=== PATIENT | male | born 1960 | race Caucasian/White ===

== ENCOUNTER 2024-06-12 11:43 | Emergency (ER) | payer BC, SELFPAY ==
[2024-06-12 11:49] VITALS: BP 151/105; PULSE 94; TEMP 36.6; O2SAT 98; BMI 36.0
--- NOTE | 2024-06-12 11:58 | ED.GENADUL1 ---
HPI HPI - General Adult General Chief complaint: Abdominal Pain Stated complaint: constipated Time Seen by Provider: 06/12/24 11:52 Source: patient Mode of arrival: walk-in Limitations: no limitations History of Present Illness HPI narrative: 63-year-old male presents to the emergency department for constipation. He states he has not had a bowel movement in a week. He had a colonoscopy he states a few months ago and they found 1 polyp. He has been nauseous. Related Data Home Medications ?Medication ?Instructions ?Recorded ?Confirmed bupropion HCl 300 mg 24 hr tablet, 300 mg PO DAILY 06/12/24 06/12/24 extended release diltiazem HCl 180 mg 180 mg PO Q24H 06/12/24 06/12/24 capsule,extended release 24 hr dulaglutide 1.5 mg/0.5 mL 1.5 mg subcut .weekly 06/12/24 06/12/24 subcutaneous pen injector (Trulicity) duloxetine 30 mg capsule,delayed 30 mg PO DAILY 06/12/24 06/12/24 release lamotrigine 200 mg tablet 200 mg PO DAILY 06/12/24 06/12/24 lisinopril 20 mg tablet 20 mg PO DAILY 06/12/24 06/12/24 meloxicam 7.5 mg tablet 7.5 mg PO DAILY 06/12/24 06/12/24 omeprazole 40 mg capsule,delayed 40 mg PO Q8H 06/12/24 06/12/24 release pravastatin 20 mg tablet 20 mg PO DAILY 06/12/24 06/12/24 Allergies Allergy/AdvReac Type Severity Reaction Status Date / Time No Known Drug Allergies Allergy Verified 06/12/24 11:49 Review of Systems ROS Narrative A ten point review of systems is negative except as noted above. PFSH PFSH Social History Little interest or pleasure in doing things: not at all Feeling down, depressed, or hopeless: not at all Exam Narrative Exam Narrative: Nurses note and vital signs reviewed and patient is not hypoxic. General: The patient appears well and in no apparent distress. Patient is resting comfortably on cart. Skin: Warm, dry, no pallor noted. There is no rash noted. Head: Normocephalic, atraumatic Eye: Normal conjunctiva, no drainage Ears, Nose, Mouth, and Throat: oral mucosa is moist. Nares patent. Cardiovascular: Regular Rate and Rhythm Respiratory: Patient is in no distress, no accessory muscle use, lungs are clear to auscultation, no wheezing, rales or rhonchi Back: non-tender GI: Soft and nondistended. No tenderness on palpation Musculoskeletal: The patient has no evidence of calf tenderness, no pitting edema, symmetrical pulses noted bilaterally Neurological: A&O, normal speech Psychiatric: Cooperative Constitutional Vital Signs, click to edit/add: Last Vital Signs Temp 97.8 F 06/12/24 11:49 Pulse 70 06/12/24 14:40 Resp 14 06/12/24 14:40 BP 145/90 H 06/12/24 14:40 Pulse Ox 98 06/12/24 14:40 O2 Del Method Room Air 06/12/24 14:40 Course Vital Signs Vital signs: Vital Signs Temperature 97.8 F 06/12/24 11:49 Pulse Rate 94 H 06/12/24 11:49 Respiratory Rate 18 06/12/24 11:49 Blood Pressure 151/105 H 06/12/24 11:49 Pulse Oximetry 98 06/12/24 11:49 Oxygen Delivery Method Room Air 06/12/24 11:49 Temperature 97.8 F 06/12/24 11:49 Pulse Rate 70 06/12/24 14:40 Respiratory Rate 14 06/12/24 14:40 Blood Pressure 145/90 H 06/12/24 14:40 Pulse Oximetry 98 06/12/24 14:40 Oxygen Delivery Method Room Air 06/12/24 14:40 Medical Decision Making MDM Narrative Medical decision making narrative: Constipation was identified and he was given an enema with good results and is discharged home. Differential Diagnosis Differential Diagnosis: Impaction, constipation Imaging Data Abdominal x-ray: Radiologist's impression: Moderate constipation Discharge Plan Discharge Chief Complaint: Abdominal Pain Clinical Impression: Constipation Patient Disposition: Home, Self-Care Time of Disposition Decision: 14:22 Condition: Good Prescriptions / Home Meds: No Action bupropion HCl 300 mg tablet extended release 24 hr 300 mg PO DAILY diltiazem HCl 180 mg capsule,extended release 24hr 180 mg PO Q24H Trulicity 1.5 mg/0.5 mL pen injector 1.5 mg SUBCUT .weekly duloxetine 30 mg capsule,delayed release(DR/EC) 30 mg PO DAILY lamotrigine 200 mg tablet 200 mg PO DAILY lisinopril 20 mg tablet 20 mg PO DAILY meloxicam 7.5 mg tablet 7.5 mg PO DAILY omeprazole 40 mg capsule,delayed release(DR/EC) 40 mg PO Q8H pravastatin 20 mg tablet 20 mg PO DAILY Print Language: St Helenian Instructions: Constipation (ED), High Fiber Diet (ED) Additional Instructions: Follow up with your GI doctor Referrals: MEJIA PHILLIPS [Primary Care Provider, Unknown] - 1 week Discharge Date/Time: 06/12/24 14:46
[2024-06-12 14:40] VITALS: BP 145/90; PULSE 70; O2SAT 98
== END 2024-06-12 14:46 | disposition home or self-care (01) ==
PROVIDERS: Emergency Provider Emergency Medicine; PCP Family Medicine
DX: K59.00 Constipation, unspecified (principal); Z86.0100 Personal history of colon polyps, unspecified
CPT/HCPCS: 74018; 99283

== ENCOUNTER 2024-12-27 08:02 | Emergency (ER) | payer BC, SELFPAY ==
[2024-12-27 08:05] VITALS: BP 161/116; PULSE 100; TEMP 36.8; O2SAT 99; BMI 34.7
--- NOTE | 2024-12-27 08:20 | XR_ITS ---
[facility] [place] [id number] Patient Name: SAHRA TSE MRN: [id number] date: 1960 Sex: M Assigned Patient Location: ER Current Patient Location: ED.MAIN Accession/Order Number: [id number] Exam Date: 12/27/2024 08:31 Report Date: 12/27/2024 08:57 At the request of: ILIANA MILLER MD Procedure: XR lumbar spine 2-3V LUMBAR SPINE - 2 views COMPARISON: None CLINICAL DATA: Low back pain for the past month with worsening. No injury. AP and lateral views were obtained. There is slight levoscoliotic curvature. There is mild retrolisthesis of L2 on L3 and L3 on L4. No acute compression fractures are seen. There is moderate disc space narrowing at L2-3 where there is also anterior endplate sclerosis. Mild marginal spurring is present at the lower thoracic and lumbar spine. There is lower lumbar facet hypertrophy. The SI joints are intact and show mild sclerosis. No paraspinal soft tissue abnormalities are present. A calcification is seen at the left upper quadrant, uncertain location. XR/XR lumbar spine 2-3V IMPRESSION: SCOLIOSIS AND DEGENERATIVE CHANGES, GREATEST AT L2-3. Impression dictated by: Sri Robles M.D. 12/27/2024 8:57 AM Dictation Location: [place] [address] Electronically authenticated by: [id number] Y Date: 12/27/2024 08:57
--- NOTE | 2024-12-27 08:21 | ED.GENADUL1 ---
HPI HPI - General Adult General Chief complaint: Back Pain/Injury Stated complaint: BACK PAIN Time Seen by Provider: 12/27/24 08:07 Source: patient Mode of arrival: walk-in Limitations: no limitations History of Present Illness HPI narrative: 64-year-old male presented to the emergency department for chief complaint of bilateral lower back pain. He has had it for about a month and a half and there is no specific injury. The pain goes into both of his upper legs, worse on the left than the right. No weakness or numbness. Related Data Home Medications ?Medication ?Instructions ?Recorded ?Confirmed bupropion HCl 300 mg 24 hr tablet, 300 mg PO DAILY 06/12/24 12/27/24 extended release diltiazem HCl 180 mg 180 mg PO Q24H 06/12/24 12/27/24 capsule,extended release 24 hr lamotrigine 200 mg tablet 200 mg PO DAILY 06/12/24 12/27/24 lisinopril 20 mg tablet 20 mg PO DAILY 06/12/24 12/27/24 meloxicam 7.5 mg tablet 7.5 mg PO DAILY 06/12/24 12/27/24 omeprazole 40 mg capsule,delayed 40 mg PO Q8H 06/12/24 12/27/24 release pravastatin 20 mg tablet 20 mg PO DAILY 06/12/24 12/27/24 dulaglutide 3 mg/0.5 mL 3 mg subcut QWEEK 12/27/24 12/27/24 subcutaneous pen injector (Trulicity) duloxetine 60 mg capsule,delayed 60 mg PO DAILY 12/27/24 12/27/24 release Previous Rx's ?Medication ?Instructions ?Recorded hydrocodone 5 mg-acetaminophen 325 1 tab PO Q6H PRN pain 5 days #20 12/27/24 mg tablet tabs methocarbamol 750 mg tablet 750 mg PO Q6H PRN pain #20 tabs 12/27/24 prednisone 10 mg tablet See Rx Instructions .Route 12/27/24 .COMPLEX #30 tabs Allergies Allergy/AdvReac Type Severity Reaction Status Date / Time No Known Drug Allergies Allergy Verified 12/27/24 08:09 Opioid HPI Opioid Management Most Recent Opioid Data: Last Pain Scale 10 Today, 08:10 Review of Systems ROS Narrative A ten point review of systems is negative except as noted above. PFSH PFSH Social History Little interest or pleasure in doing things: not at all Feeling down, depressed, or hopeless: not at all Exam Narrative Exam Narrative: Nurses note and vital signs reviewed General:The patient appears uncomfortable. He is sitting upright on a chair hunched over. Skin:Warm, dry, no pallor noted.There is no rash noted. Head:Normocephalic, atraumatic Eye: Normal conjunctiva, no drainage Ears, Nose, Mouth, and Throat: oral mucosa is moist. Nares patent. Cardiovascular:Regular Rate and Rhythm Respiratory:Patient is in no distress, no accessory muscle use, lungs are clear to auscultation, no wheezing, rales or rhonchi Back: No bruise rash or abrasion on his back. No focal area of tenderness to palpation GI: Soft and nontender Musculoskeletal: No joint swelling Neurological:A&O, normal speech; motor strength intact in his lower extremities Psychiatric:Cooperative Constitutional Vital Signs, click to edit/add: Last Vital Signs Temp 98.3 F 12/27/24 08:05 Pulse 100 H 12/27/24 08:05 Resp 16 12/27/24 08:05 BP 120/82 12/27/24 09:03 Pulse Ox 99 12/27/24 08:05 O2 Del Method Room Air 12/27/24 08:05 Course Vital Signs Vital signs: Vital Signs Temperature 98.3 F 12/27/24 08:05 Pulse Rate 100 H 12/27/24 08:05 Respiratory Rate 16 12/27/24 08:05 Blood Pressure 161/116 H 12/27/24 08:05 Pulse Oximetry 99 12/27/24 08:05 Oxygen Delivery Method Room Air 12/27/24 08:05 Temperature 98.3 F 12/27/24 08:05 Pulse Rate 100 H 12/27/24 08:05 Respiratory Rate 16 12/27/24 08:05 Blood Pressure 120/82 12/27/24 09:03 Pulse Oximetry 99 12/27/24 08:05 Oxygen Delivery Method Room Air 12/27/24 08:05 Medical Decision Making [facility] Narrative Medical decision making narrative: X-ray findings are discussed with the patient and he is provided prescriptions for [place], Robaxin, and prednisone. Follow-up with his PCP. The possibility of a herniated lumbar disc at L2-L3 as discussed with the patient. Differential Diagnosis Differential Diagnosis: Lumbar strain, fracture, disc herniation Imaging Data Lumbar spine: Radiologist's impression: ITS Impressions Lumbar Spine X-Ray 12/27/24 08:20 IMPRESSION: SCOLIOSIS AND DEGENERATIVE CHANGES, GREATEST AT L2-3. Impression dictated by: Sri Robles M.D. 12/27/2024 8:57 AM Dictation Location: [place] [address] Electronically authenticated by: [id number] Y Date: 12/27/2024 08:57 Discharge Plan Discharge Chief Complaint: Back Pain/Injury Clinical Impression: Low back pain, Arthritis, lumbar spine Patient Disposition: Home, Self-Care Time of Disposition Decision: 09:26 Condition: Good Mode of Transportation: Private Vehicle Prescriptions / Home Meds: New hydrocodone-acetaminophen 5-325 mg tablet 1 tab PO Q6H PRN (Reason: pain) 5 Days Qty: 20 0RF prednisone 10 mg tablet See Rx Instructions .ROUTE .COMPLEX Qty: 30 0RF Rx Instructions: 4 by mouth daily for three days then 3 by mouth daily for three days then 2 by mouth daily for three days then 1 by mouth daily for three days methocarbamol 750 mg tablet 750 mg PO Q6H PRN (Reason: pain) Qty: 20 0RF No Action bupropion HCl 300 mg tablet extended release 24 hr 300 mg PO DAILY diltiazem HCl 180 mg capsule,extended release 24hr 180 mg PO Q24H lamotrigine 200 mg tablet 200 mg PO DAILY lisinopril 20 mg tablet 20 mg PO DAILY meloxicam 7.5 mg tablet 7.5 mg PO DAILY omeprazole 40 mg capsule,delayed release(DR/EC) 40 mg PO Q8H pravastatin 20 mg tablet 20 mg PO DAILY Trulicity 3 mg/0.5 mL pen injector 3 mg SUBCUT QWEEK duloxetine 60 mg capsule,delayed release(DR/EC) 60 mg PO DAILY Print Language: Singaporean Instructions: Acute Low Back Pain (ED) Referrals: MEJIA PHILLIPS [Primary Care Provider, Unknown] - 1 week
[2024-12-27] MEDS: KETOROLAC TROMETHAMINE 60 MG/2 ML VIAL IM (08:26)
[2024-12-27] MEDS: ORPHENADRINE 60 MG/2 ML VIAL IM (08:26)
--- OUTSIDE RECORDS SUMMARY | 2024-12-27 08:44 | XMS_ITS | Clinical Summary ---
Author Organization [facility] Healthcare Address [address] [place] [address] Care Team Providers Care Building Serviceman Name Role Phone Unavailable Primary Care Provider Unavailabl e Allergies No known active allergies Medications MedicationSigDispense QuantityRefillsLast FilledStart DateEnd DateStatus buPROPion XL (Wellbutrin XL) 300 MG 24 hr tablet Take 300 mg by mouth in the morning.5Active dilTIAZem CD (Cardizem CD) 180 MG 24 hr capsule 5Active Trulicity 1.5 MG/0.5ML solution auto-injector 5Active Trulicity 3 MG/0.5ML solution auto-injector 5Active DULoxetine (Cymbalta) [address] capsule Take 120 mg by mouth in the morning.5Active fluticasone (Flonase) 50 MCG/ACT nasal spray 1 (one) time each day at the same time3Active lamoTRIgine (LaMICtal) 200 MG tablet Take 400 mg by mouth in the morning.5Active lisinopril 20 MG tablet 1 (one) time each day at the same timeActive meloxicam (Mobic) 7.5 MG tablet 5Active omeprazole (PriLOSEC) [address] capsule 1 capsule 1 (one) time each day at the same timeActive azithromycin (Zithromax) 250 MG tablet Indications:BronchitisTake 1 tablet (250 mg) by mouth Daily Take 2 tabs on day 1 and 1 tab on days 2-5 then stop 6 tablet 5Active Encounters DateTypeDepartmentCare LipdBpustszncli73/09/2025 4:05 PM EDTOffice Visit [facility] [address] [place] [id number] Candi Coreas N, ANTIQUE REPAIRER Sinus congestion (Primary Dx); Acute cough; Jbcrduhjsc21/09/2025Travelfrom Last 3 Months Social History Tobacco UseTypesPacks/DayYears UsedDateSmoking Tobacco: Never AssessedSex and Gender InformationValueDate RecordedSex Assigned at BirthNot on fileLegal Sex Male04/20/2022 7:35 PM EDTGender IdentityNot on fileSexual OrientationNot on file Last Filed Vital Signs Vital SignReadingTime TakenCommentsBlood Ljnjpxuu740/7809 4:08 PM EDT Jdrvj818110/15/2024 4:08 PM QLNJhhvriwquov28.6 ??C (97.8 ??F)10/15/2024 4:08 PM EDTRespiratory Wzdx312710/15/2024 4:08 PM EDTOxygen Gkgkthpbpx22%10/15/2024 4:08 PM EDTInhaled Oxygen Concentration--Ewqobc736 kg (275 lb)10/15/2024 4:08 PM EDT Srifee214.3 cm (5' 9 )04/02/2022 12:00 PM ESTBody Mass Index40.61004/02/2022 12:00 PM EST Plan of Treatment Not on file Insurance
--- OUTSIDE RECORDS SUMMARY | 2024-12-27 08:44 | XMS_ITS | Clinical Summary ---
Author Organization [facility] Address [address] [place] [address] Phone Care Team Providers Care Open Claims Representative Name Role Phone Unavailable Primary Care Provider Unavailabl e Social History Tobacco UseTypesPacks/DayYears UsedDateSmoking Tobacco: Never AssessedSex and Gender InformationValueDate RecordedSex Assigned at BirthNot on fileLegal Sex Male12/31/2021 11:38 AM ESTGender IdentityNot on fileSexual OrientationNot on file Plan of Treatment Not on file
--- OUTSIDE RECORDS SUMMARY | 2024-12-27 08:44 | XMS_ITS | Clinical Summary ---
Author Organization [facility] Address [address] [place] [id number] Care Team Providers Care District Traffic Chief Name Role Phone Yovani Salazar DO Primary Care Provider + Allergies No known active allergies Medications * This document contains information received from the source organization and may not represent a complete record from that organization. MedicationSigDispense QuantityRefillsLast FilledStart DateEnd DateStatus LISINOPRIL-HYDROCHLOROTHIAZIDE 20 MG-12.5 MG TAB Indications:Hypertensiontake one daily 0 ctive PANTOPRAZOLE 40 MG TAB, DELAYED RELEASE Indications:GERD (gastroesophageal reflux disease)take one tab daily 0 ctive SIMVASTATIN 80 MG TAB Indications:Hypercholesteremiatake one tab daily 0 ctive diltiazem hcl(CARDIZEM CD 240 MG 24 HR CAP) Indications:Hypertensiontake one tab 0 ctive cholecalciferol (VITAMIN D3) 1,000 unit tab tablet Indications:Vitamin D deficiencyTake 1 tablet by mouth once daily. Required to schedule an appointment with [facility] for further refills. 90 tablet 2Active buPROPion XL (WELLBUTRIN XL) 300 mg 24 hr tablet Take 1 tablet by mouth once daily. [address] (CYMBALTA) 60 mg capsule Take 2 capsules by mouth once daily. 180 capsule 5Active lamoTRIgine (LAMICTAL) 200 mg tablet Indications:PEPE (generalized anxiety disorder)Take 2 tablets by mouth once daily. 180 tablet 5Active Active Problems ProblemNoted DateDiagnosed DateAttention-deficit hyperactivity disorder, combined type09/27/2016GAD (generalized anxiety disorder)10/21/2015ADHD (attention deficit hyperactivity disorder), combined type08/27/2015 Encounters * This document contains information received from the source organization and may not represent a complete record from that organization. DateTypeDepartmentCare HwlyXgcfsmawdxq40/28/2025Travelfrom Last 3 Months Social History Tobacco UseTypesPacks/DayYears UsedDateSmoking Tobacco: Never Tobacco Cessation:Counseling Given: Not Answered Alcohol UseStandard Drinks/WeekCommentsNo0 (1 standard drink = 0.6 oz pure alcohol)Quit more than 20 years agoPHQ-2AnswerDate RecordedPHQ-2 score6 5Area Deprivation IndexAnswerDate RecordedNational Score (1-100), lower number is lower kfke168901/17/2023State Score (1-10), lower number is lower risk3 3Data from: https://www.neighborhoodatlas.[facility].edu/. Last address used for sdqiwibwsaq[address]/17/2023Sex and Gender Information ValueDate RecordedSex Assigned at RwjfhIkhu22/07/2021 11:36 AM ESTLegal SexMale 01/08/2012 8:19 AM ESTGender NcecnudqEhix28/07/2021 11:36 AM ESTSexual OrientationNot on file Last Filed Vital Signs Vital SignReadingTime TakenCommentsBlood Ifhoitwt619/7808 2:24 PM EDT Zfuwk30593/28/2025 2:24 PM EDTTemperature--Respiratory Tzhf899910/03/2024 2:24 PM EDTOxygen Bsvpfcskix05%10/03/2024 2:24 PM EDTInhaled Oxygen Concentration-- Xblybj135.6 kg (235 lb 0.2 oz)10/03/2024 2:24 PM ECOJxedfu682.3 cm (5' 9 ) 10/03/2024 2:24 PM EDTBody Mass Index34.71010/03/2024 2:24 PM EDT Plan of Treatment Health MaintenanceDue DateLast DoneCommentsDepression Juvsjwvja18/04/1980HIV Luzctjbkf06/04/1980Hepatitis C Ucuqenzob51/04/1980DTaP,Tdap,Td Vaccine (1 - Tdap)1980CT Dbsbxriqrzoy28/04/2007Cologuard (FIT-DNA)2006Colonoscopy 2006Colorectal Cancer Xdmlwppll99/04/2007Fecal Occult Blood2006 Prostate Cancer Screening Kfjciknvkc15/04/0358Miygaxnfucsjl83/04/2007 Pneumococcal Vaccine: 50+ (1 of 1 - PCV)07/11/2011Shingrix Vaccine (1 of 2) 07/11/2011Lipid Prflnjssv23Covid-19 Vaccine (3 - season)505/01/2021, 05/27/2020Influenza Vaccine (#1)2024Diabetes Vmlhrpyxd35/16/990151/, 01/16/2010RSV Vaccine (1 - 1-dose 75+ series) 2036 Procedures Procedure NamePriorityDate/TimeAssociated DiagnosisCommentsCOMPREHENSIVE METABOLIC XAXJCCftpsjn63/16/2025 9:22 AM EDT Severe episode of recurrent major depressive disorder, without psychotic features (HCC) LIPID PANEL, DNJMWIZZzwlnil49/11/2010 9:02 AM EST Bipolar disorder in partial remission from Last 3 Months or Most Recently Relevant to Health Maintenance Results * (ABNORMAL) COMPREHENSIVE METABOLIC PANEL (08/21/2024 9:22 AM EDT)Component ValueRef RangeTest MethodAnalysis TimePerformed AtPathologist Signature Protein, Total6.66.3 - 8.0 g/dL08/21/2024 12:30 PM [facility]TCO[facility] LABAlbumin4.23.9 - 4.9 g/dL08/21/2024 12:30 PM EDTCOHIOHE[facility] LABCalcium, Total9.38.5 - 10.2 mg/dL08/21/2024 12:30 PM [facility] LABBilirubin, Total0.30.2 - 1.3 mg/dL08/21/2024 12:30 PM EDRIV[facility]IDE [facility] LABAlkaline Ezjzhefezut439(H)38 - 113 U/L 08/21/2024 12:30 PM [facility] XKXGSI9059 - 40 U/L 08/21/2024 12:30 PM [facility] IPJFKG3667 - 54 U/L 08/21/2024 12:30 PM [facility] MOBCvvdtba760(H)74 - 99 mg/dL08/21/2024 12:30 PM [facility] LABComment: The [place] Diabetes Association (ADA) provides guidance for cutoff values for fasting glucose andrandom glucose. The ADA defines fasting as no caloric intake for at least 8 hours. Fasting plasma glucose results between 100 to 125 mg/dL indicate increased risk for diabetes (prediabetes). Fasting plasma glucose results greater than or equal to 126 mg/dL meet the criteria for diagnosis of diabetes. In the absence of unequivocal hyperglycemia, results should be confirmed by repeat testing. In a patient with classic symptoms of hyperglycemia or hyperglycemic crisis, random plasma glucose results greater than or equal to 200 mg/dL meet the criteria for diagnosis of diabetes. Reference: Standards of Medical Care in Diabetes 2016, French Diabetes Association. Diabetes Care. 2016.39(Suppl 1). QSA819 - 24 mg/dL08/21/2024 12:30 PM [facility] LAB Creatinine1.070.73 - 1.22 mg/dL08/21/2024 12:30 PM [facility] FMATiekvu223754 - 144 mmol/L08/21/2024 12:30 PM [facility] LABPotassium4.73.7 - 5.1 mmol/L08/21/2024 12:30 PM [facility] IKRTjkmxqml07716 - 107 mmol/L08/21/2024 12:30 PM [facility] ROBNL31264 - 30 mmol/L08/21/2024 12:30 PM [facility] LABAnion Zyq034 - 15 mmol/L08/21/2024 12:30 PM [facility] LABEstimated Glomerular Filtration Rate78>=60 mL/min/1.73m 08/21/2024 12:30 PM [facility] LABComment:Estimated Glomerular Filtration Rate (eGFR) is calculated using the 2020 CKD-EPI creatinine equation. This equation utilizes serum creatinine, sex, and age as parameters. The creatinine assay has traceable calibration to isotope dilution- mass spectrometry. Refer to KDIGO guidelines for clinical interpretation. In patients with unstable renal function, e.g. those with acute kidney injury, the eGFRmay not accurately reflect actual GFR.Specimen (Source)Anatomical Location / LateralityCollection Method / VolumeCollection TimeReceived TimeBloodBLOOD SPECIMEN / UnknownVenipuncture / Urahirn8108/21/2024 9:22 AM EDT08/21/2024 9:22 AM EDT Narrative Authorizing ProviderResult TypeResult StatusJosie Langford MDLABORATORYFinal ResultPerforming OrganizationAddressCity/State/ZIP CodePhone Number [facility] [address] [facility] [address] * (ABNORMAL) LIPID PANEL BASIC (01/16/2010 9:02 AM EST)ComponentValueRef Range Test MethodAnalysis TimePerformed AtPathologist QwuwyqxfjMmktwsuvlhxk685(H)30 - 149 mg/dLKETTERING HEALTH [facility] LABORATORYCholesterol, Uavsv841090 - 199 mg/dLKETTERING HEALTH DAY[facility] LABORATORYHDL Bahvkaaegij29(L)>45 mg/dLKETTERING HEALTH DAY[facility] LABORATORYVLDL Ywmbscpgdfx020 - 40 mg/dLKETTERING HEALTH DAY[facility] LABORATORYLDL Cholesterol, Sgexjapvud3504 - 129 mg/dLKETTERING HEALTH DAYTON LABORATORYFasting TimeUnknownhrsKETTERING [facility]ALTH [facility] LABORATORYTC:HDL Ratio 3.661.00 - 5.00[facility] LABORATORYLDL:HDL Ratio1.680.50 - 3.55 [facility]ORYNon HDL Iiagrzrwbkv52906 - 159 mg/dLKETTERING HEALTH DAYTON LABORATORYSpecimen (Source)Anatomical Location / Laterality Collection Method / VolumeCollection TimeReceived TimeBlood specimen (specimen)BLOOD SPECIMEN / Dtdwzfi5001/16/2010 9:02 AM EST01/16/2010 7:05 PM EST Narrative Authorizing ProviderResult TypeResult StatusChicho Hoang MDLABORATORYFinal ResultPerforming OrganizationAddressCity/State/ZIP CodePhone Number [facility] [address] [facility] [place] [address] from Last 3 Months or Most Recently Relevant to Health Maintenance Insurance * Guarantor: Eamon Ross TypeRelation to PatientDate of BirthPhone Billing AddressPersonal/FnkztqGtom00/04/1961 NA (Work) [address] [place] [address] Care Teams Team MemberRelationshipSpecialtyStart DateEnd Date Yovani Salazar DO [address] [facility] [facility] [place] [address] PCP - GeneralFamily Medicine06/07/23
--- OUTSIDE RECORDS SUMMARY | 2024-12-27 08:47 | XMS_ITS | CCD ---
Author Organization [facility] CliniSyfl Care Team Providers Care Business Office Manager Name Role Phone SUSAN CHEUNG Attending Unavailable SUSAN CHEUNG Consulting Unavailable MIGUELC, DR RODRIGUEZ Primary Care Unavailable SUSAN CHEUNG Admitting Unavailable JAIRO, DR RODRIGUEZ Primary Care Unavailable SUSAN CHEUNG Admitting Unavailable SUSAN CHEUNG Attending Unavailable SUSAN CHEUNG Consulting Unavailable Mejia Phillips Unavailable Suzanne Joseph Unavailable Mejia Newton Unavailable Ana Booker Unavailable DO Mejia Phillips Primary Care Provider DO Mejia Phillips Attending Provider MD Mjeia Newton Attending Provider [phone] DO Mejia Phillips Primary Care Provider MD Mejia Newton Attending Provider DO Mejia Phillips Attending Provider [phone] DO Mejia Phillips Primary Care Provider MD Lam Betts Attending Provider Lam Betts Unavailable DO Mejia Phillips Primary Care Provider MD Lam Betts Attending Provider TORIE Whitaker Emergency Provider Asaad, Imad Unavailable DO Mejia Phillips Attending Provider DO Mejia Phillips Primary Care Provider DO Mejia Phillips Attending Provider Phillips, DO Mejia R Primary Care Provider Phillips, DO Mejia R Attending Provider MD Valery Helm Attending Provider [phone] DO Alan Mejia R Primary Care Provider Phillips, Mejia R Attending Provider Alan ESPITIA Mejia Marci Primary Care Provider Alicja ESCUDERO, Imrowena Attending Provider [phone] Alan ESPITIA Mejia Marci Primary Care Provider Alicja ESCUDERO, Imrowena Attending Provider Mejia Phillips DO Attending Provider Mejia Phillips DO Primary Care Provider Alan ESPITIA Mejia Marci Primary Care Provider Alan ESPITIA Mejia Marci Primary Care Provider Richard Hickey DO Attending Provider Provider, Outside Attending Provider Unavailable NEVILLE RICHARDSON Attending Unavailable Unavailable Primary Care Provider Unavailkelly Phillips DO Mejia Marci Primary Care Provider Richard Hcikey DO Attending Provider [phone] Mejia Newton MD Attending Provider PEDRO SOLARES Attending Unavailable SUJATHA, PEDRO Referring Unavailable MEJIA PHILLIPS Primary Care Unavailkelly SOLARES, PEDRO Referring Unavailable MEJIA PHILLIPS Primary Care Unavailkelly SOLARES PEDRO Attending Unavailable SUJATHA, PEDRO Referring Unavailable MEJIA PHILLIPS Primary Care Unavailkelly SOLARES PEDRO Attending Unavailable SUJATHA, PEDRO Referring Unavailable MEJIA PHILLIPS Primary Care UnavailMejia Figueroa DO Primary Care Provider Alicja ESCUDERO, Imrowena Attending Provider Alicja ESCUDERO, Imrowena Other Provider Mejia Phillips Primary Care Unavailable Asaad, Imad Admitting Unavailable Alicja, Imad Attending Unavailable Mejia Newton Attending Unavailable Mejia Phillips Primary Care Unavailable Mjeia Newton Admitting Unavailable Mejia Phillips Admitting Unavailable Mejia Phillips Primary Care Unavailable Mejia Phillips Attending Unavailable Mejia Phillips Primary Care Unavailable Asaad, Imad Admitting Unavailable Asaad, Imad Attending Unavailable Mejia Phillips Primary Care Unavailable Asaad, Imad Admitting Unavailable Asaad, Imad Attending Unavailable Balbir Newman APRN Attending Provider Allergies Allergy ClassificationReported Allergen(s)Allergy TypeDate of OnsetReaction(s) Facility (20 sources)Mold ExtractDrug [id number] ([facility] sources)environmental/seasonal allergiAllergy to [id number] ReactionLakehealth Tripoint Medical CenterComment on above:Free Text Allergy: environmental/seasonal allergies Medications Current Medications MedicationDrug Class(es)DatesSig (Normalized)Sig (Original)acetaminophen 325 mg / HYDROcodone bitartrate 5 mg oral tablet (20 sources)Opioid AgonistStart: 05-54-4296wcsy 1 tablet by mouth every four hours as needed for painStart: 12-27-2019 End: 93-14-8223aczm 1 tablet by mouth every six hours as needed for pain Hydrocodone-Acetaminophen 5-325 mg tablet Discontinued 1 TAB PO Q6H as needed for pain 10 3 0 July 01, 2021 September 07, 2021 5:03pm Pain of left lower extremity Pain in left legStart: 10-22-2019 End: 39-18-9221uivj 1 tablet by mouth every eight hours as needed for pain Hydrocodone-Acetaminophen 5-325 mg tablet Discontinued 1 TAB PO Q8H as needed for pain 10 3 0 October 22, 2019 July 01, 2021 11:48am Hydrocele, unspecifiedazithromycin 250 mg oral tablet (2 sources)Macrolide AntimicrobialStart: 15-84-4589tqvfgeenllye (Zithromax) 250 MG tablet Indications: Bronchitis Take 1 tablet (250 mg) by mouth Daily Take 2 tabs on day 1 and 1 tab on days 2-5 then stop 6 tablet 10/15/2024 Active benzonatate 200 mg oral capsule (4 sources)Non-narcotic AntitussiveStart: 72-93-8744prub 1 capsule by mouth every eight hoursBenzonatate 200 MG 1 capsule Orally Three times a day for 10 days Mar, Owhqzf03 hr buPROPion hydrochloride 300 mg extended release oral tablet (20 sources)AminoketoneStart: 25-43-4105tghb 1 tablet by mouth every twenty-four hours in the morningbuPROPion XL (Wellbutrin XL) 300 MG 24 hr tablet Take 300 mg by mouth in the morning. 10/03/2024 ActiveStart: 15-88-3194fpdz 1 tablet by mouth once dailyBupropion Hcl (Wellbutrin Xl) 300 mg tablet extended release 24 hr Active 300 MG PO Daily 2019 12:00am depression Complies with drug therapyStart: 04-20-2019 End: 08-03-2430nsmj 1 tablet by mouth once daily in the morningBupropion Hcl (Wellbutrin Xl) 150 mg Tablet Extended Release 24 Hr Discontinued 150 MG PO Every morning April 20, 2019 12:00am October 15, 2019 5:41pm depression cholecalciferol 0.025 mg oral tablet (20 sources)Vitamin DStart: 24-46-4488gsfs 1 tablet by mouth once daily Cholecalciferol (Vitamin D3) (Vitamin D3) 25 mcg (1,000 unit) tablet Active 1000 UNIT PO Daily October 15, 2019 12:00am Complies with drug therapy dapagliflozin 5 mg oral tablet (6 sources)Sodium-Glucose Cotransporter 2 InhibitorStart: 30-61-1327yqpv 1 tablet by mouth once daily in the morningDapagliflozin Propanediol (Farxiga) 5 mg tablet Active 5 MG PO Every morning July 02, 2024 12:00am Type 2 diabetes mellitus with hyperglycemia Type 2 diabetes mellitus with hyperglycemia Complies with drug dpapdvz05 hr dilTIAZem hydrochloride 180 mg extended release oral capsule (20 sources)Calcium Channel BlockerStart: 10-40-2828hkiZWPWme CD (Cardizem CD) 180 MG 24 hr capsule 08/28/2024 ActiveStart: 32-79-4797Lpmckpbkp Hcl 180 mg capsule,extended release 24hr Active 0 .ROUTE .COMPLEX 90 May 30, 2024 9:20 am TAKE 1 CAPSULE DAILYStart: 03-26-2023 End: 43-92-5529Hmhderrmo Hcl 180 mg capsule,extended release 24hr Discontinued 0 .ROUTE .COMPLEX 90 May 24, 2023 4:35pm May 30, 2024 9:20am Uncontrolled type 2 diabetes mellitus Type 2 diabetes mellitus with hyperglycemia TAKE 1 CAPSULE DAILYStart: 03-26-2023 End: 17-14-2165Xrmlountq Hcl 180 mg capsule,extended release 24hr Discontinued 0 .ROUTE .COMPLEX March 9:22pm May 24, 2023 4:37pm TAKE 1 CAPSULE DAILYStart: 03-26-2023 End: 57-75-5514Xydotjehk Hcl 180 mg capsule,extended release 24hr Discontinued 0 .ROUTE .COMPLEX March 8:22pm May 24, 2023 3:37pm TAKE 1 CAPSULE DAILYStart: 03-26-2023 End: 79-99-0339Syjiizhzf Hcl Discontinued 0 .ROUTE .COMPLEX March 26, 2023 9:22pm May 24, 2023 4:37pm TAKE 1 CAPSULE DAILYStart: 03-26-2023 Diltiazem Hcl Active 0 .ROUTE .COMPLEX March 26, 2023 9:22pm TAKE 1 CAPSULE DAILYStart: 03-03-2017 End: 20-69-6030cpky 1 capsule by mouth once dailyDiltiazem Hcl 180 mg capsule,extended release 24hr Discontinued 180 MG PO Daily March 23, 2023 1:00am March 26, 2023 9:22pm FreeTextSig: TAKE 1 CAPSULE DAILY; Note: Source Status: Continue;Provider: Alan Pina ( )Start: 86-57-4340jfegdlgot hcl(CARDIZEM CD 240 MG 24 HR CAP) Indications: Hypertension take one tab 0 0 11/07/2008 ActiveDulaglutide (20 sources)GLP-1 Receptor AgonistStart: 33-68-4356Brgacwzpvro (Trulicity) 3 mg/0.5 mL pen injector Active 3 MG SUBCUT every week 6 May 312:00am Type 2 diabetes mellitus with hyperglycemia Type 2 diabetes mellitus with hyperglycemia Complies with drug therapyStart: 92-68-2160Fbgxx: 05-21-2024 End: 23-65-3573Ejfwzhibrhv (Trulicity) 1.5 mg/0.5 mL pen injector Discontinued 1.5 MG SUBCUT every week 6 May 21, 2024 12:00am May 31, 2024 9:24am Type 2 diabetes mellitus with hyperglycemia Type 2 diabetes mellitus with hyperglycemiaStart: 09-19-2023 End: 80-99-8272Caxhoiaqznx (Trulicity) 3 mg/0.5 mL pen injector Discontinued 3 MG SUBCUT every week 3 2023 12:00am May 21, 2024 4:57pm Type 2 diabetes mellitus with hyperglycemia Type 2 diabetes mellitus with hyperglycemiaStart: 09-19-2023 End: 51-13-3423Cbgashfrbww (Trulicity) 3 mg/0.5 mL pen injector Discontinued 3 MG SUBCUT every week September 19, 2023 12:00am May 21, 2024 4:57pm Start: 03-23-2023 End: 64-68-1901glygcl 1.5 mg by subcutaneous injection every weekDulaglutide (Trulicity) 1.5 mg/0.5 mL pen injector Discontinued 1.5 MG SUBCUT every week 12 3 May 24, 2023 4:35pm September 19, 2023 3:21pm Uncontrolled type 2 diabetes mellitus Type 2 diabetesmellitus with hyperglycemia 1.5 mg Subcutaneous once a weekStart: 58-28-5350eteoew 1.5 mg by subcutaneous injection every week Trulicity 1.5 MG/0.5ML 1.5 mg Subcutaneous once a week for 90 days Mar, ActiveStart: 99-03-8768srozbp 0.75 mg by subcutaneous injection every week Trulicity 0.75 MG/0.5ML 0.75 mg Subcutaneous once a week for 30 days Mar, ActiveDulaglutide (Trulicity) 3 mg/0.5 mL pen injector (6 sources)Start: 99-23-5106Sfpjiprilas (Trulicity) 3 mg/0.5 mL pen injector Active 3 MG SUBCUT every week 6 May 31, 2024 12:00amStart: 09-19-2023 End: 85-30-3054Hyiwhinbpec (Trulicity) 3 mg/0.5 mL pen injector Discontinued 3 MG SUBCUT every week September 19, 2023 12:00am May 21, 2024 4:57pm Start: 68-64-5962Ydymnnfmkyl (Trulicity) 3 mg/0.5 mL pen injector Active 3 MG SUBCUT every week September 18, 2023 11:00pmStart: 91-89-8944Gmxbqysyvtw (Trulicity) 3 mg/0.5 mL pen injector Active 3 MG SUBCUT every week September 19, 2023 12:00amDULoxetine 60 mg delayed release oral capsule (20 sources)Serotonin and Norepinephrine Reuptake InhibitorStart: 79-54-5614fkup 2 capsules by mouth in the morningDULoxetine (Cymbalta) [address] capsule Take 120 mg by mouth in the morning. 10/03/2024 ActiveStart: 23-86-2498nbwq 1 capsule by mouth once dailyDuloxetine 60 mg capsule,delayed release(DR/EC) Active 60 MG PO Daily May 24, 2023 4:18pm depression Complies with drug therapyStart: 03-23-2023 End: 13-47-6673brla 1 capsule by mouth once dailyDuloxetine 30 mg capsule,delayed release(DR/EC) Active 30 MG PO Daily March 23, 2023 1:00am FreeTextSig: TAKE 1 CAPSULE BY MOUTH ONCE DAILY WITH 60MG CAPSULE; Note: Source Status: Taking; Refills: 5; Qty: 30 Each; Provider: psych Complies with drug therapyStart: 36-99-1012hwim 1 capsule by mouth every twenty-four hoursCymbalta 60 MG 1 capsule Orally Once a day for 30 day(s) June, ActiveStart: 10-15-2019 End: 91-34-5888Ivcybopqxk 60 mg capsule,delayed release(DR/EC) Discontinued 80 MG PO Daily October 15, 2019 12:00am May 24, 2023 4:18pm depressionStart: 10-15-2019 End: 95-21-4211vcqm 80 mg by mouth once dailyDuloxetine Discontinued 80 MG PO Daily October 15, 2019 12:00am May 24, 2023 4:18pmStart: 03-03-2017 End: 45-58-0560bqos 1 capsule by mouth once daily in the morningDuloxetine 30 mg Capsule,Delayed Release(Dr/Ec) Discontinued 30 MG PO Every morning March 03, 2017 1:00am October 15, 2019 5:42pm depressionfluticasone propionate 0.05 mg/actuat metered dose nasal spray (2 sources)CorticosteroidStart: 02-45-1373ogylwrypnjm (Flonase) 50 MCG/ACT nasal spray 1 (one) time each day at the same time 04/02/2022 Active hydroCHLOROthiazide 12.5 mg / lisinopril 20 mg oral tablet (1 source)Thiazide Diuretic, Angiotensin Converting Enzyme InhibitorStart: 63-73-9292EKXWUHGXPH-HYDROCHLOROTHIAZIDE 20 MG-12.5 MG TAB Indications: Hypertension take one daily 0 0 11/07/2008 ActivehydrOXYzine hydrochloride 25 mg oral tablet (10 sources)AntihistamineStart: 57-00-0128mkna 1 tablet by mouth once daily at bedtime as needed for anxietyHydroxyzine Hcl 25 mg tablet Active 25 MG PO Daily at bedtime as needed for anxiety September 19, 2023 12:00am Complies with drug therapylamoTRIgine 200 mg oral tablet (20 sources)Mood Stabilizer, Anti-epileptic AgentStart: 19-33-3293zxtr 2 tablets by mouth once dailyLamotrigine 200 mg tablet Active 400 MG PO Daily October 15, 2019 12:00am Complies with drug therapyStart: 24-75-2032lmeq 400 mg by mouth once dailyLamotrigine Active 400 MG PO Daily October 15, 2019 12:00am Start: 03-03-2017 End: 86-40-7803xnkj 1 tablet by mouth once dailyLamotrigine 300 mg Tablet Extended Release 24hr Discontinued 600 MG PO Daily March 03, 2017 1:00am October 15, 2019 5:43pm depressionStart: 03-03-2017 End: 75-02-7100ktbc 600 mg by mouth once dailyLamotrigine Discontinued 600 MG PO Daily March 03, 2017 1:00am October 15, 2019 5:43pmtake 1.5 tablets by mouth every twenty-four hoursLaMICtal 200 mg 1.5 tablets Orally Once a day for 30 day(s) Activelisinopril 20 mg oral tablet (20 sources)Angiotensin Converting Enzyme InhibitorStart: 09-37-9143Aoyjonqoaf 20 mg tablet Active 0 .ROUTE .COMPLEX 90 May 30, 2024 9:20am TAKE 1 TABLET DAILYStart: 03-26-2023 End: 25-12-1204Ixkefklijp 20 mg tablet Discontinued 0 .ROUTE .COMPLEX 90 3 May 24, 2023 4:36pm May 30, 2024 9:20am Uncontrolled type 2 diabetes mellitus Type 2 diabetes mellitus with hyperglycemia TAKE 1 TABLET DAILYStart: 03-26-2023 End: 80-01-7530Pnnxekqwzb 20 mg tablet Discontinued 0 .ROUTE .COMPLEX 90 March 26, 2023 9:22pm May 24, 2023 4:37pm TAKE 1 TABLET DAILYStart: 03-26-2023 End: 59-93-6329Wdbfudkuqe 20 mg tablet Discontinued 0 .ROUTE .COMPLEX 90 March 26, 2023 8:22pm May 24, 2023 3:37pm TAKE 1 TABLET DAILYStart: 03-26-2023 End: 41-28-1337Pbkmbwcyuy Discontinued 0 .ROUTE .COMPLEX 90 March 26, 2023 9:22pm May 24, 2023 4:37pm TAKE 1 TABLET DAILYStart: 19-43-9943Tnrelxzadd Active 0 .ROUTE .COMPLEX 90 March 26, 2023 9:22pm TAKE 1 TABLET DAILYStart: 03-03-2017 End: 98-47-2935iyqt 1 tablet by mouth once daily in the eveningLisinopril 20 mg tablet Discontinued 20 MG PO Every evening October 15, 2019 12:00am March 26, 2023 9:22pmmeloxicam 7.5 mg oral tablet (20 sources)Nonsteroidal Anti-inflammatory DrugStart: 25-50-1805aygnwicnw (Mobic) 7.5 MG tablet 09/09/2024 ActiveStart: 12-11-2023 End: 16-41-7631Gntjqpuin 7.5 mg tablet Discontinued 0 .ROUTE .COMPLEX 90 December 11, 2023 9:41am March 11:21am TAKE 1 TABLET DAILY NEEDED FOR PAINStart: 12-11-2023 End: 37-01-8026Kzkxaqcfv 7.5 mg tablet Discontinued 0 .ROUTE .COMPLEX 90 December 11, 2023 9:41am March 11, 2024 11:21am TAKE 1 TABLET DAILY NEEDED FOR PAINStart: 12-11-2023 End: 93-86-7899Bamjmeigg 7.5 mg tablet Discontinued 0 .ROUTE .COMPLEX 90 December 11, 2023 8:41am March 11, 2024 10:21am TAKE 1 TABLET DAILY NEEDED FOR PAINStart: 03-23-2023 End: 84-83-7975tkus 1 tablet by mouth once daily as needed for painMeloxicam 7.5 mg tablet Discontinued 7.5 MG PO Daily as needed for pain 90 May 24, 2023 4:36pm December 11, 2023 9:41am FreeTextSig: TAKE 1 TABLET DAILY NEEDED; Note: Source Status: Start; Refills: 3; Qty: 90 Tablet; Provider: Alan Pina ( )Start: 59-62-0115kfts 1 tablet by mouth every twenty-four hours Meloxicam 7.5 MG 1 tablet as needed Orally Once a day for 90 days May, ActivemethylPREDNISolone (2 sources)CorticosteroidStart: 10-15-2024 End: 65-49-5884yaugdtLHXQVHWwrxto (Medrol Dospak) 4 MG tablets Indications: Sinus congestion , Acute cough Follow schedule on package instructions 21 tablet 10/15/2024 10/22/2024 Activeomeprazole 40 mg delayed release oral capsule (20 sources)Proton Pump InhibitorStart: 03-26-2023 End: 34-26-1608Luoshqokwu 40 mg capsule,delayed release(DR/EC) Active 0 .ROUTE .COMPLEX 90 March 15, 2024 9:27am TAKE 1 CAPSULE DAILY Complies with drug therapyStart: 01-13-7341Tppmmhkder Active 0 .ROUTE .COMPLEX March 26, 2023 9:22pm TAKE 1 CAPSULE DAILYStart: 03-03-2017 End: 33-24-1886migc 1 capsule by mouth once dailyOmeprazole 40 mg Capsule,Delayed Release(Dr/Ec) Discontinued 40 MG PO Daily March 03, 2017 1:00am March 26, 2023 9:22pm gerdOmeprazole 40 mg capsule,delayed release(DR/EC) (7 sources)Start: 04-07-9132Mmswxpdxdq 40 mg capsule,delayed release(DR/EC) Active 0 .ROUTE .COMPLEX March 15, 2024 9:27am TAKE 1 CAPSULE DAILYStart: 03-26-2023 End: 93-78-9548Wqvidowuwt 40 mg capsule,delayed release(DR/EC) Discontinued 0 .ROUTE .COMPLEX March 26, 2023 9:22pm March 15, 2024 9:27am TAKE 1 CAPSULE DAILYStart: 71-27-6254Pktidwezsr 40 mg capsule,delayed release(DR/EC) Active 0 .ROUTE .COMPLEX March 26, 2023 8:22pm TAKE 1 CAPSULE DAILY pantoprazole 40 mg delayed release oral tablet (1 source)Proton Pump InhibitorStart: 09-93-3639WKQBPLBRYAEO 40 MG TAB, DELAYED RELEASE Indications: GERD (gastroesophageal reflux disease) take one tab daily 0 0 11/07/2008 Activepolyethylene glycol 3350 81237 mg powder for oral solution (7 sources)Osmotic LaxativeStart: 02-27-2024 End: 94-60-9070Ctyupcqdojqo Glycol 3350 (Miralax) 17 gram/dose powder Active 17 GM PO Daily as needed for constipation November 11, 2024 12:00am Complies with drug therapyPolyethylene Glycol 3350 (Miralax) 17 gram/dose powder (4 sources)Start: 63-56-9991Fqvbaanucpvu Glycol 3350 (Miralax) 17 gram/dose powder Active 17 GM PO Daily 510 February 27, 2024 1:00amStart: 02-27-2024 Polyethylene Glycol 3350 (Miralax) 17 gram/dose powder Active 17 GM PO Daily 510 February 27, 2024 12:00amsimvastatin 80 mg oral tablet (1 source)HMG-CoA Reductase InhibitorStart: 42-93-8128XCOSJEUWMGZ 80 MG TAB Indications: Hypercholesteremia take one tab daily 0 0 11/07/2008 Active tadalafil 20 mg oral tablet (5 sources)Phosphodiesterase 5 InhibitorStart: 85-59-3043amba 1 tablet by mouth every twenty-four hoursTadalafil 20 MG 1 tablet as needed Orally Once a day Feb, ActiveTrulicity 3 MG/0.5ML solution auto-injector (2 sources)Start: 67-29-0205Sjsaruqeh 3 MG/0.5ML solution auto-injector 05/31/2024 Active Completed/Discontinued Medications MedicationDrug Class(es)DatesSig (Normalized)Sig (Original)amoxicillin 875 mg / clavulanate 125 mg oral tablet (13 sources)Penicillin-class AntibacterialStart: 05-10-2023 End: 11-97-4692vqcg 1 tablet by mouth every twelve hoursAmoxicillin-Pot Clavulanate 875-125 mg tablet Discontinued 1 TAB PO Every 12 hours 20 10 0 May 10, 2023 12:00am May 24, 2023 4:11pm Otitis media Otitis media, unspecified, unspecified earcarbamide peroxide 65 mg/ml otic solution (20 sources)Start: 12-27-2019 End: 36-61-9124Wltjvipli Peroxide (Debrox) 6.5 % drops Discontinued 5 DROPS EAR- RIGHT Twice daily 15 4 0 December 27, 2019 1:00am July 01, 2021 11:47am cephalexin 500 mg oral capsule (20 sources)Cephalosporin AntibacterialStart: 05-09-2022 End: 81-88-5090gzqv 1 capsule by mouth every eight hoursCephalexin 500 mg capsule Discontinued 500 MG PO Q8H 21 7 0 May 09, 2022 12:00am March 23, 2023 2:00pmStart: 04-20-2019 End: 27-73-4745lyyd 1 tablet by mouth twice dailyCephalexin 500 mg tablet Discontinued 500 MG PO Twice daily 14 7 0 April 20, 2019 12:00am October 15, 2019 5:37pmciprofloxacin 3 mg/ml / dexamethasone 1 mg/ml otic suspension (18 sources)Corticosteroid, Quinolone AntimicrobialStart: 12-27-2019 End: 04-04-9019Xxidovbspobwj-Dexamethasone 0.3-0.1 % drops,suspension Discontinued 4 DROPS EAR-RIGHT Twice daily 7.5 7 0 December 27, 2019 1:00am July 01, 2021 11:47amStart: 12-27-2019 End: 11-47-1291Hzjlnbrqcvwka-Dexamethasone Discontinued 4 DROPS EAR-RIGHT Twice daily 7.5 7 December 27, 2019 12:00am July 01, 2021 10:47amStart: 12-27-2019 End: 25-68-4352Sgoeggyvdtexh-Dexamethasone Discontinued 4 DROPS EAR-RIGHT Twice daily 7.5 7 December 27, 2019 1:00am July 01, 2021 11:47amCiprofloxacin- Dexamethasone 0.3-0.1 % drops,suspension (4 sources)Start: 12-27-2019 End: 75-90-1131Rqtfemagurjvf-Dexamethasone 0.3-0.1 % drops,suspension Discontinued 4 DROPS EAR-RIGHT Twice daily 7.5 7 December 27, 2019 1:00am July 01, 2021 11:47amStart: 12-27-2019 End: 59-65-3377Hocsbyvkxrhqm-Dexamethasone 0.3-0.1 % drops,suspension Discontinued 4 DROPS EAR-RIGHT Twice daily 7.5 December 27, 2019 12:00am July 01, 2021 10:47amdexmethylphenidate hydrochloride 5 mg oral tablet (20 sources)Central Nervous System StimulantStart: 03-03-2017 End: 37-75-5371ylct 1 tablet by mouth once daily in the morning Dexmethylphenidate (Focalin) 5 mg Tablet Discontinued 5 MG PO Every morning March 03, 2017 1:00am March 23, 2023 2:00pm attention problemdiclofenac sodium 0.01 mg/mg topical gel (20 sources)Nonsteroidal Anti-inflammatory DrugStart: 07-01-2021 End: 76-44-0619oqpnc 4 g topically four times dailyDiclofenac Sodium 1 % gel Discontinued 4 GM TOPICAL Four times daily 100 0 July 01, 2021 12:00am September 07, 2021 5:03pm apply to single knee, ankle, foot; for foot includes sole/toes/top of footStart: 07-01-2021 End: 96-21-0030qgzdr 4 g topically four times dailyDiclofenac Sodium Discontinued 4 GM TOPICAL Four times daily 100 July 01, 2021 12:00am September 5:03pm apply to single knee, ankle, foot; for foot includes sole/toes/top of footempagliflozin 10 mg oral tablet (6 sources)Sodium-Glucose Cotransporter 2 InhibitorStart: 06-20-2024 End: 64-11-7601gxuk 1 tablet by mouth once dailyEmpagliflozin (Jardiance) 10 mg tablet Discontinued 10 MG PO Daily 90 0 June 20, 2024 12:00am July 02, 2024 3:44pm Uncontrolled type 2 diabetes mellitus Type 2 diabetes mellitus with hyperglycemiagabapentin 300 mg oral capsule (20 sources)Anti-epileptic AgentStart: 03-03-2017 End: 54-92-9381xssd 1 capsule by mouth twice dailyGabapentin 300 mg Capsule Discontinued 300 MG PO Twice daily March 03, 2017 1:00am October 15, 2019 5:39pmtake 1 capsule by mouth every twelve hoursibuprofen 800 mg oral tablet (20 sources)Nonsteroidal Anti-inflammatory DrugStart: 05-10-2019 End: 17-91-1180dbxs 1 tablet by mouth every six hours as needed for pain Ibuprofen 800 mg tablet Discontinued 800 MG PO Q6H as needed for pain 20 May 10, 2019 12:00am October 15, 2019 5:39pmmetaxalone 800 mg oral tablet (20 sources)Start: 07-01-2021 End: 14-88-6463wtuv 1 tablet by mouth three times daily as needed for pain Metaxalone (Skelaxin) 800 mg tablet Discontinued 800 MG PO Three times daily as needed for muscle pain 15 0 July 01, 2021 12:00am September 07, 2021 5:04pm metFORMIN hydrochloride 500 mg oral tablet (20 sources)BiguanideStart: 03-03-2017 End: 17-22-0996hwzl 1 tablet by mouth twice dailyMetformin 500 mg Tablet Discontinued 500 MG PO Twice daily March 03, 2017 1:00am April 20, 2019 12:12pmmetFORMIN hydrochloride 1000 mg / SITagliptin 50 mg oral tablet (20 sources)Biguanide, Dipeptidyl Peptidase 4 InhibitorStart: 04-20-2019 End: 22-79-9233aosl 1 tablet by mouth twice dailySitagliptin Phos-Metformin (Janumet) 50-1,000 mg tablet Discontinued 1 TAB PO Twice daily April 20, 2019 12:00am May 10, 2023 2:10pm diabetespolyethylene glycol 3350 741858 mg / potassium chloride 2970 mg / sodium bicarbonate 6740 mg / sodium chloride 5860 mg / sodium sulfate 33019 mg powder for oral solution (20 sources)Osmotic LaxativeStart: 01-22-2024 End: 12-91-4460Iji 3350-Electrolytes (Golytely) 236-22.74-6.74 -5.86 gram recon soln Discontinued 240 ML PO Q10M 4000 1 0 February 27, 2024 1:00am March 11, 2024 11:11am until fecal effluent is clear patientis doing a 2 day bowel prep and needs both scripts filledStart: 03-56-3400wjjo 236 g by mouth once Golytely 236 GM as directed Orally once for 1 days Jul, Active pravastatin sodium 20 mg oral tablet (20 sources)HMG-CoA Reductase InhibitorStart: 03-28-2023 End: 16-05-1235Ebprfwhsdwu 20 mg tablet Discontinued 0 .ROUTE .COMPLEX 90 3 May 24, 2023 4:36pm June 1751:59pm TAKE 1 TABLET DAILYStart: 03-03-2017 End: 39-45-8928gtzf 1 tablet by mouth once daily at bedtimePravastatin 20 mg Tablet Discontinued 20 MG PO Daily at bedtime March 03, 2017 1:00am March 28, 2023 9:00am cholesterolsildenafil 50 mg oral tablet (20 sources)Phosphodiesterase 5 InhibitorStart: 10-15-2019 End: 43-16-1653Ocukuhacaj 50 mg tablet Discontinued 50 MG PO As Directed as needed for Erectile Dysfunction October 15, 2019 12:00am March 11, 2024 11:21amSod Picosulf-Mag Ox-Citric Ac (9 sources)Start: 12-12-2023 End: 39-00-3326Enn Picosulf-Mag Ox-Citric Ac (Clenpiq) 10 mg-3.5 gram- 12 gram/175 mL solution Discontinued 175 MLPO .COMPLEX 350 1 0 December 12, 2023 1:00am February 15, 2024 1:12pm Follow instructions given byofficeStart: 12-12-2023 End: 05-67-6931Zsc Picosulf-Mag Ox-Citric Ac (Clenpiq) 10 mg-3.5 gram- 12 gram/175 mL solution Discontinued 175 MLPO .COMPLEX 350 December 12, 2023 1:00am February 15, 2024 1:12pm Follow instructions given by officeStart: 12-12-2023 End: 68-24-1617Zno Picosulf-Mag Ox-Citric Ac (Clenpiq) 10 mg-3.5 gram- 12 gram/175 mL solution Discontinued 175 MLPO .COMPLEX 350 1 December 12, 2023 12:00am February 15, 2024 12:12pm Follow instructions given byofficeVitamin D 2000 UNIT (20 sources)Vitamin D 2000 UNIT Orally Not-TakingVitamin D 2000 UNIT Orally Active Problems Active Problems Problem ClassificationProblemDateDocumented DateEpisodic/ChronicAbdominal pain (20 sources)Abdominal pain; Translations: [Unspecified abdominal pain]03-03-2017 EpisodicAnxiety disorders (2 sources)Generalized anxiety disorder; Translations: [Generalized anxiety disorder]Onset: 099356-35-3546YzutpdgDnanlxfyp-envvmst, conduct, and disruptive behavior disorders (2 sources)Attention deficit hyperactivity disorder, combined type; Translations: [Attention-deficit hyperactivity disorder, combined type]Onset: 538443-77-1918SfgfanxQwpueki obstructive pulmonary disease and bronchiectasis (2 sources)Bronchitis; Translations: [Bronchitis, not specified as acute or chronic]22-68-8072YslgjwloEnegppab mellitus with complications (20 sources)Type 2 diabetes mellitus; Translations: [Type 2 diabetes mellitus with hyperglycemia]Onset: 02-16-2021 Resolved: 54-78-5232KvuvssmFshkgutoz of lipid metabolism (20 sources)Mixed hyperlipidemia; Translations: [Mixed hyperlipidemia]Chronic Esophageal disorders (20 sources)Gastroesophageal reflux disease; Translations: [Gastro-esophageal reflux disease without esophagitis]04-74-6305KwzmfguNuqjbwrfv hypertension (20 sources)Essential hypertension; Translations: [Essential (primary) hypertension]Onset: 02-16-2021 Resolved: 42-98-3847XkrxhctTkgdopqajfbyq symptoms and ill-defined conditions (17 sources)Blood in urine; Translations: [Hematuria, unspecified]05-09-2022 EpisodicImmunizations and screening for infectious disease (4 sources)Encounter for immunization; Translations: [ENCOUNTER FOR IMMUNIZATION]Onset: 01-08-9406UlqxqhopEslpdplidccd conditions of male genital organs (20 sources)Orchitis; Translations: [Orchitis]30-22-3363CbuejtmnKnxjw disorders and dislocations; trauma-related (20 sources)Bucket handle tear of medial meniscus of knee; Translations: [Derangement of unspecified medial meniscus due to old tear or injury, unspecified knee]ChronicJoint disorders and dislocations; trauma-related (20 sources)Current tear of medial cartilage AND/OR meniscus of knee; Translations: [Other tear of medial meniscus, current injury, unspecified knee, initial encounter]Onset: 09-06-2021 Resolved: 25-06-7793FwucknsmRgqdhxv and fatigue (4 sources)Chronic fatigue, unspecified; Translations: [Other malaise and fatigue]Onset: 726440-71-3609CraipyrGecg disorders (20 sources)Recurrent major depression; Translations: [Major depressive disorder, recurrent, unspecified]Onset: 271879-03-7483CwzfwxtMtbkmsxpglf deficiencies (20 sources)Vitamin D deficiency; Translations: [Vitamin D deficiency, unspecified]Onset: 02-16-2021 Resolved: 49-55-1275RakwthbMavigqpssdvzgb (20 sources)Primary gonarthrosis, bilateral; Translations: [Bilateral primary osteoarthritis of knee]ChronicOther connective tissue disease (20 sources)Pain in left lower limb; Translations: [Pain in left leg]07-01-2021 EpisodicOther connective tissue disease (1 source)Radial styloid tenosynovitis [de Quervain]EpisodicOther connective tissue disease (12 sources)Biceps tendinitis; Translations: [Bicipital tendinitis, left shoulder]73-12-2035GxlrsnrrIbmwg connective tissue disease (2 sources)Disorder of rotator cuff; Translations: [Unspecified rotator cuff tear or rupture of left shoulder,not specified as traumatic]81-66-8935Ivrruqyu Other connective tissue disease (1 source)Bicipital tendinitis, left shoulder; Translations: [Bicipital tenosynovitis]40-05-0373SusqapgbShlie connective tissue disease (1 source)Unspecified rotator cuff tear or rupture of left shoulder, not specified as traumatic; Translations: [Disorders of bursae and tendons in shoulder region, unspecified]97-05-5056LayuqjueDarjo connective tissue disease (1 source)Unspecified rotator cuff tear or rupture of right shoulder, not specified as traumatic; Translations: [Disorders of bursae and tendons in shoulder region, unspecified]11-08-8706SedinmqtDwbik connective tissue disease (15 sources)Left rotator cuff syndrome; Translations: [Unspecified rotator cuff tear or rupture of left shoulder, not specified as traumatic]83-55-0541Ahkcpypz Other connective tissue disease (11 sources)Right rotator cuff syndrome; Translations: [Unspecified rotator cuff tear or rupture of right shoulder, not specified as traumatic]07-09-2024 EpisodicOther ear and sense organ disorders (3 sources)Otalgia; Translations: [Otalgia, unspecified ear]77-88-1518Vvsyijzs Other ear and sense organ disorders (17 sources)Impacted cerumen; Translations: [Impacted cerumen, right ear] 47-13-9188ChkjfjstGkzra ear and sense organ disorders (19 sources)Pain of ear structure; Translations: [Otalgia, unspecified ear] 63-30-6382PvjllguaMbguu ear and sense organ disorders (5 sources)Impacted cerumen in right ear; Translations: [Impacted cerumen, right ear]33-87-6186MuagstmhPuwbb endocrine disorders (20 sources)Testicular hypofunction; Translations: [Testicular hypofunction] ChronicOther gastrointestinal disorders (2 sources)Abdominal bloating; Translations: [Abdominal distension (gaseous)] 38-60-1097QoyjyokrHcaly gastrointestinal disorders (2 sources)Constipation; Translations: [Constipation, unspecified]12-04-2024 EpisodicOther lower respiratory disease (2 sources)Cough; Translations: [Acute cough]02-55-1858UaejmfkcZwete male genital disorders (20 sources)Impotence; Translations: [Male erectile dysfunction, unspecified] ChronicOther male genital disorders (1 source)Male erectile dysfunction, unspecifiedOnset: 02-16-2021 Resolved: 51-33-1663EfubsunSkfjo male genital disorders (20 sources)Disorder of reproductive system; Translations: [Hydrocele, unspecified]85-79-9220LytzspigPqnib nervous system disorders (14 sources)Chronic pain; Translations: [Other chronic pain]ChronicOther nervous system disorders (4 sources)Other chronic pain; Translations: [Other chronic pain]Onset: 08-03-3598MwulfoyHmyur non-traumatic joint disorders (2 sources)Pain in left knee; Translations: [Pain in left knee]Onset: 07-14-2021 Resolved: 85-85-9447DotowntpYujbz non-traumatic joint disorders (7 sources)Pain in right knee; Translations: [Acute bilateral knee pain]Onset: 14-01-5723UtayectlFvnmr nutritional; endocrine; and metabolic disorders (12 sources)Body mass index 30+ - obesity; Translations: [Body mass index (BMI) 36.0-36.9, adult]ChronicOther nutritional; endocrine; and metabolic disorders (4 sources)Body mass index (BMI) 36.0-36.9, adult; Translations: [Body Mass Index 36.0-36.9, adult]ChronicOther screening for suspected conditions (not mental disorders or infectious disease) (16 sources)Encounter for screening for malignant neoplasm of prostate; Translations: [Abnormal findings on diagnostic imaging of limbs]Onset: 08-18-2021 Resolved: 19-34-6835SjicpkjcMdezf upper respiratory disease (2 sources)Congestion of nasal sinus; Translations: [Nasal congestion]10-15-2024 EpisodicOther upper respiratory infections (1 source)Acute upper respiratory infection, unspecifiedEpisodicOtitis media and related conditions (4 sources)Otitis media, unspecified, unspecified ear; Translations: [Unspecified otitis media]15-91-8073PrpwdjlsWtsehgbk codes; unclassified (20 sources)Obstructive sleep apnea syndrome; Translations: [Obstructive sleep apnea (adult) (pediatric)]45-85-6724BntrlugZzqyewud codes; unclassified (1 source)Obstructive sleep apnea (adult) (pediatric)ChronicVaricose veins of lower extremity (20 sources)Varicose veins of lower extremity; Translations: [Varicose veins of right lower extremity with other complications]Episodic Past or Other Problems Problem ClassificationProblemDateDocumented DateEpisodic/ChronicMalaise and fatigue (2 sources)Other fatigue; Translations: [Other malaise and fatigue]Onset: 401467-63-8782YrqyqlizTzkpeiygadc chest pain (1 source)Chest pain, unspecifiedOnset: 02-16-2021 Resolved: 56-64-6061LatdunlgChomd connective tissue disease (1 source)Neuralgia and neuritis, unspecifiedOnset: 02-16-2021 Resolved: 75-32-6853TyujwisvBhadu gastrointestinal disorders (4 sources)Abdominal distension (gaseous); Translations: [Flatulence, eructation, and gas pain]Onset: 084879-85-8469HfnwheudDotrs non-traumatic joint disorders (1 source)Effusion, left kneeOnset: 07-14-2021 Resolved: 66-63-7204SjpcraliIfnib non-traumatic joint disorders (4 sources)Pain in right shoulder; Translations: [Pain in joint, shoulder region]Onset: 963018-40-5773DqftmjqbYcxyf non-traumatic joint disorders (1 source)Pain in left shoulder; Translations: [Pain in left shoulder]Onset: 03-43-2615OhycccbpKfwwymmq codes; unclassified (2 sources)Other specified postprocedural statesOnset: 09-14-2021 Resolved: 07-33-0313NcfphkfhZexonfxq codes; unclassified (5 sources)Decreased libido; Translations: [Decreased libido]Onset: 05-24-2024 44-02-5417CgrtadifIjphdxbvymyv (1 source)Low back pain, unspecified M54.50 Results Test NameValueInterpretationReference RangeFacilityGlucose Poct Glucometerson 28-38-6122Yszsnjk9Jmg5: Cleaned MeterNoNorth Carolina Specialty Hospital Physician GroupComment on above:Result Comment: PERFORMED BY: [address] [place] [address] PATHOLOGIST SKILLED HELPER PRINCESS WELLS M.D.Performed By: #### GLULS ####Point of Care testing,Glucose [Mass/Vol]281 mg/dLSt. Joseph's Hospital Physician GroupComment on above:Result Comment: Random Glucose Reference Range is dependent on time and content of last meal. Glucose of more than 200 mg/dL in a nonstressed, ambulatory subject supports the diagnosis of Diabetes Mellitus.Performed By: #### GLULS ####Point of Care testing,Herbert 11-22-2024L Specimen: [id number] Received: 11/22/24 Status: KEESHA Carreon Num: [id number] Spec Type: Surgical Subm Dr: Valery Helm MD Tissues: A Small Intestine - Biopsy/Polyp (SMALL BOWEL BX) B Gastric Biopsy (GASTRIC BX) Procedures: HE/4, Gross/Micro L4/2 Age/ Patient Sex Location Account Attending Physician Sahra Tse/Shiela [id number] Valery Helm MD SPEC NUM: [id number] RECD: 11/22/24 STATUS: KEESHA RE NUM: [id number] NAYAN: 11/22/[address] [facility] [address]: Valery Helm MD ENTERED: 11/22/[address] [facility] [address]: SPEC TYPE: Surgical DEPT: S ENTERED BY: [id number] RECV BY: [id number] ORDERED: HE/4, Gross/Micro L4/2 ORDERED: HE/4, Gross/Micro L4/2 Pathological Diagnosis A. Small bowel, biopsy: - Small bowel mucosa with no significant histopathology. - No evidence of celiac disease identified. B. Stomach, biopsy: - Oxyntic-type gastric mucosa with minimal chronic inactive gastritis. - No Helicobacter pylori microorganisms identified with routine H E stain. Clinical Information Nausea, vomiting, Part A rule out celiac disease, Part B rule out H. pylori Gross Description Part A is received in formalin labeled with the patient's name, date of , and small bowel BX are two knight-raines, focally erythematous, friable, 0.2 and 0.3 cm in greatest dimension tissue bits. The specimen is entirely submitted in a single cassette. (1, ns, [id number] A) J Part B is received in formalin labeled with the patient's name, date of , and Wood, gastric BX are two knight-raines, focally erythematous, friable, 0.1 and 0.3 cm in greatest dimension tissue bits. The specimen is entirely submitted in a single cassette. (1, ns, [id number] B) Specimen: [id number] Received: 11/22/24 Status: KEESHA Laila Num: [id number] Spec Type: Surgical Subm Dr: Valery Helm MD Tissues: A Small Intestine - Biopsy/Polyp (SMALL BOWEL BX) B Gastric Biopsy (GASTRIC BX) Procedures: HE/4, Gross/Micro L4/2 Patient: Sahra Tse [id number] (Continued) Specimen: [id number] Received: 11/22/24 (Continued) Signed (signature on file) Ru Lakhani MD 11/25/24 0932 Specimen: [id number] Received: 11/22/24 Status: KEESHA Laila Num: [id number] Spec Type: Surgical Subm Dr: Valery Helm MD Tissues: A Small Intestine - Biopsy/Polyp (SMALL BOWEL BX) B Gastric Biopsy (GASTRIC BX) Procedures: Thalia GIBBS/Adithya L4/2 Patient: Sahra Tse [id number] (Continued) Specimen: [id number] Received: 11/22/24 (Continued) Microscopic Description A B: Microscopic examination is performed. CPT Codes 92361 x2 Specimen: [id number] Received: 11/22/24 Status: KEESHA Nascimento Num: [id number] Spec Type: Surgical Subm Dr: Valery Helm MD Tissues: A Small Intestine - Biopsy/Polyp (SMALL BOWEL BX) B Gastric Biopsy (GASTRIC BX) Procedures: GABBY/Juan Pablo, Gross/Micro L4/2 Patient: Sahra Tse [id number] (Continued) Signed (signature on file) Ru Lakhani MD 11/25/24 0932Normal [facility] Physician GroupCNPNon [id number] (PSYRMN) SAHRA TSE ([id number]) 1960 M Date Time Provider Department 11/08/24 PEDRO SOLARES PSYRMN During your visit today, we recorded the following information about you: Jessica Wells 11/08/2024 3:39 PM Signed Faxed to [employer] the FMLA forms and fax went through successfully. Also, scanned a copy to the patients chart and sent patient a copy via . SG Allergies As of Date: 11/08/2024 (No Known Allergies) Date Reviewed: 10/03/2024 Reviewed by: Kena Mo MA - Fully Assessed Prescriptions as of 11/08/2024 - buPROPion XL (WELLBUTRIN XL) 300 mg 24 hr tablet Take 1 tablet by mouth once daily. - DULoxetine DR (CYMBALTA) 60 mg capsule Take 2 capsules by mouth once daily. - lamoTRIgine (LAMICTAL) 200 mg tablet Take 2 tablets by mouth once daily. - cholecalciferol (VITAMIN D3) 1,000 unit tab tablet Take 1 tablet by mouth once daily. Required to schedule an appointment with [facility] for further refills. - LISINOPRIL-HYDROCHLOROTHIAZIDE 20 MG-12.5 MG TAB take one daily - PANTOPRAZOLE 40 MG TAB, DELAYED RELEASE take one tab daily - SIMVASTATIN 80 MG TAB take one tab daily - diltiazem hcl(CARDIZEM CD 240 MG 24 HR CAP) take one tab Problem List As Of Date 11/08/2024 Noted Resolved ADHD (attention deficit hyperactivity disorder)*08/27/2015 PEPE (generalized anxiety disorder) [F41.1] 10/21/2015 Attention-deficit hyperactivity disorder, combi*09/27/2016 Encounter Status:Closed by JESSICA WELLS on 11/08/24[facility] 36-78-3952XDXRQacfkseqn (PSYRMN) SAHRA TSE ([id number]) 1960 M Date Time Provider Department 11/07/24 PEDRO SOLARES PSYRMN During your visit today, we recorded the following information about you: Jessica Wells 11/07/2024 2:07 PM Signed Received FMLA form and scanned them to [employer]. SG Allergies As of Date: 11/07/2024 (No Known Allergies) Date Reviewed: 10/03/2024 Reviewed by: Kena Mo MA - Fully Assessed Prescriptions as of 11/07/2024 - buPROPion XL (WELLBUTRIN XL) 300 mg 24 hr tablet Take 1 tablet by mouth once daily. - DULoxetine DR (CYMBALTA) 60 mg capsule Take 2 capsules by mouth once daily. - lamoTRIgine (LAMICTAL) 200 mg tablet Take 2 tablets by mouth once daily. - cholecalciferol (VITAMIN D3) 1,000 unit tab tablet Take 1 tablet by mouth once daily. Required to schedule an appointment with [facility] psychiatry for further refills. - LISINOPRIL-HYDROCHLOROTHIAZIDE 20 MG-12.5 MG TAB take one daily - PANTOPRAZOLE 40 MG TAB, DELAYED RELEASE take one tab daily - SIMVASTATIN 80 MG TAB take one tab daily - diltiazem hcl(CARDIZEM CD 240 MG 24 HR CAP) take one tab Problem List As Of Date 11/07/2024 Noted Resolved ADHD (attention deficit hyperactivity disorder)*08/27/2015 PEPE (generalized anxiety disorder) [F41.1] 10/21/2015 Attention-deficit hyperactivity disorder, combi*09/27/2016 Encounter Status:Closed by JESSICA WELLS on 11/07/24[facility] HealthcareX-ray reportOrdered By: Sebas Lama on 91-19-8950Lghat reportCLEVELAND [facility] [address] [place] [address] XRay Report Signed Patient: Sahra Tse MR#: [id number] : 1960 Acct:[id number] Age/Sex: 64 / M ADM Date: 5 Loc: [facility]: Mejia Newton MD Copies to: Mejia Newton MD~ Ordering Provider: Mejia Newton MD Date of Service: 10/28/24 XR/XR knee BI 2V: M25.561 - Pain in right knee BILATERAL KNEES - 2 views each CLINICAL HISTORY: Bilateral knee pain right greater than left COMPARISON: 01/07/2022 FINDINGS: No fracture or dislocation identified. Right knee: Moderate medial compartment joint space narrowing. Nuke-yb-zqjdseqxzbqafutrojulkx compartment degenerative change. Joint effusion. Left knee: Nikiwcao-iq-snmckf medial compartment mild lateral compartment and moderate patellofemoral compartment degenerative change. Joint effusion.. XR/XR knee BI 2V IMPRESSION: Negative acute osseous abnormality. Degenerative changes greatest medial compartment involving both both knees left greater than right. Bilateraljoint effusions. . Impression dictated by: Sebas Lama M.D. 10/28/2024 10:15 PM Dictation Location: [place] [address] Transcribed By: [facility] 10/28/242214 Dictated By: Sebas Lama MD 10/28/242212 Signed By: 10/28/242214 [facility] Work Phone: XR knee BI 2Von [id number] knee BI 2VCLEVELAND CLINIC [facility] [place] [address] XRay Report Signed Patient: Sahra Tse MR#: [id number] : 1960 Acct:[id number] Age/Sex: 64 / M ADM Date: 10/28/24 Loc: [facility] Room: Type: [facility] Attending Dr: Mejia Newton MD Copies to: Mejia Newton MD Ordering Provider: Mejia Newton MD Date of Service: 10/28/24 XR/XR knee BI 2V: M25.561 - Pain in right knee BILATERAL KNEES - 2 views each CLINICAL HISTORY: Bilateral knee pain right greater than left COMPARISON: 01/07/2022 FINDINGS: No fracture or dislocation identified. Right knee: Moderate medial compartment joint space narrowing. Inst-dq-lkywwgsc patellofemoral compartment degenerative change. Joint effusion. Left knee: Fthxjahn-ua-tzpkqr medial compartment mild lateral compartment and moderate patellofemoral compartment degenerative change. Joint effusion.. XR/XR knee BI 2V IMPRESSION: Negative acute osseous abnormality. Degenerative changes greatest medial compartment involving both both knees left greater than right. Bilateral joint effusions. . Impression dictated by: Sebas Lama M.D. 10/28/2024 10:15 PM Dictation Location: [place] [address] Transcribed By: [facility] 10/28/242214 Dictated By: Sebas Lama MD 10/28/242212 Signed By: 10/28/242214St[facility] Physician GroupSAINT MARY'S HEALTH CENTERon 77-25-5785TZPMQjodjj Visit (PSYRMN) DEDRICKSAHRA ([id number]) 1960 M Date Time Provider Department 10/03/24 2:30 PM PEDRO SOLARES PSYRMN During your visit today, we recorded the following information about you: Pulse Respiration Blood pressure Weight 101/minute 16/minute 147/78 106.6 kg Height 1.753 m Pedro Solares MD 10/03/2024 3:13 PM Signed FOLLOW UP - PSYCHIATRIC PROGRESS NOTE Visit Type:In person Reason for Visit: Outpatient follow-up and safety monitoring of previously prescribed psychiatric medication, psychotherapy or other treatment CC: I feel better HPI: Pt is a 64 yo M with medical history of KEI on CPAP, HTN, HLD, GERD, who presented to clinic to reestablish care after being lost to follow up in resident clinic. He has trialed Gabapentin (drowsy), Effexor (2005), Wellbutrin, Prozac, Celexa, Lexapro, Zoloft, Pristiq, Paxil, Propanolol (2010), Abilify (8590-9782), [place] (drooling, 2009), Focalin (nausea) (obtained via chart review as pt has limited recollection of trials). He is currently taking: Cymbalta 120 mg every day, Wellbutrin XL 300 mg every day, and Lamictal 400 mg every day. Reports feeling improved relative to last appointment and attributes this to the Cymbalta. Notes improvement in depressive symptoms. No reported SI/HI. Notes some sadness surrounding the passing of his mother a week ago. Notes some anxiety, though finds this is exacerbated only in a work setting. Discussed option of initiating Buspar thought pt does not wish to add another medication at this time. Pt has not been following with a therapist. Risks and benefits of the medication, including any black box warnings, were discussed with the patient. Interval Progress: Same PATIENT DATA: Generalized Anxiety Disorder Scale (PEPE-7) 09/19/2023 11/12/2023 08/17/2024 PEPE - 7 SCORES Score 14 19 19 (0-4) minimal anxiety, (5-9) mild anxiety, (10-14) moderate anxiety, (15-21) severe anxiety Patient Health Questionnaire (PHQ-9) 09/19/2023 11/12/2023 08/17/2024 PHQ-9 Score 11 15 21 (0-4) minimal depression, (5-9) mild depression, (10-14) moderate depression, (15-19) moderately severe depression, (20-27) severe depression PROMIS Global Health 01/17/2023 09/19/2023 08/17/2024 PROMIS Global Health - (T-Scores - the mean of general population = 50. Five points is a clinically meaningful difference.) Physical T-Score 29.6 34.9 Mental T-Score 33.8 25.1 21.2 No past medical history on file. No past surgical history on file. Current Outpatient Medications Medication Sig Dispense Refill DULoxetine DR (CYMBALTA) 60 mg capsule Take 2 capsules by mouth once daily. 180 capsule 0 lamoTRIgine (LAMICTAL) 200 mg tablet TAKE 2 TABLETS ONCE DAILY 180 tablet 3 buPROPion XL (WELLBUTRIN XL) 300 mg 24 hr tablet take 1 tablet daily 90 tablet 3 cholecalciferol (VITAMIN D3) 1,000 unit tab tablet Take 1 tablet by mouth once daily. Required to schedule an appointment with [facility] psychiatry for further refills. 90 tablet 1 LISINOPRIL-HYDROCHLOROTHIAZIDE 20 MG-12.5 MG TAB take one daily 0 0 SIMVASTATIN 80 MG TAB take one tab daily 0 0 diltiazem hcl(CARDIZEM CD 240 MG 24 HR CAP) take one tab 0 0 PANTOPRAZOLE 40 MG TAB, DELAYED RELEASE take one tab daily 0 0 No current facility-administered medications for this visit. ROS: GENERAL: Negative RESPIRATORY: Negative CARDIOVASCULAR: Negative GI: Negative NEURO: Negative All other systems negative. PFSH: No interval updates. VITAL SIGNS: 10/03/24 1424 BP: 147/78 BP Site: Right Arm BP Position: Sitting BP Cuff Size: Large Adult Pulse: 101 Resp: 16 SpO2: 95% Weight: 106.6 kg (235 lb 0.2 oz) Height: 175.3 cm (5' 9 ) MENTAL STATUS EXAM: Appearance: Casually dressed Behavior: Behaves appropriately during the encounter Social relatedness: Euthymic Speech/Language: The patient demonstrates appropriate tone, prosody, pili, phonetics, and syntax Mood: ok Affect: Full and appropriate to topic Orientation: Person, Place, Time and Situation Associations: Intact and linear Hallucinations: None Delusions: None Suicidal Ideation: No suicidal ideation, intent or plan. Homicidal Ideation: No homicidal ideation, intent or plan. Insight: Fair Judgment: Fair Concentration: Good Abstraction: intact Fund of Knowledge: appropriate to age and education level Memory: Fair Language: Fluent Grenadian DATA REVIEWED: Electronic medical record DIAGNOSIS: Major depressive disorder, moderate, with seasonal pattern Rule-out Persistent Depressive Disorder Generalized Anxiety Disorder ADHD, per chart review Cluster B Personality Traits GAF: 60-51 Moderate symptoms or moderate difficulty in social, occupational or school functioning. TREATMENT PLAN: 1. Continue Cymbalta to 120 mg every day. Can consider transitioning to alternative antidepressa (more content not included)...[facility] panel Auto (Bld)on 27-15-0666Ydqytbrgskq distribution width (RBC) [Ratio]12.6 %Aclssz31.5-15.0[facility] on above:Order Comment: Specimen Type: BLOOD SPECIMENOrdering Facility: [facility] Address:[address] [place], [place] [address]Performed By: #### [id number] ####[facility] LABIA [id number] [address] HALL STREETHematocrit (Bld) [Volume fraction]46.4 %Pdwffh46.0-51.0[facility] on above:Order Comment: Specimen Type: BLOOD SPECIMENOrdering Facility: [facility] Address:[address] [place], [place] [address]Performed By: #### 78379- 2 ####[facility] LABIA [id number] 42 HALL STREETHemoglobin (Bld) [Mass/Vol]15.4 g/rJIpzkrw29.0-17.0[facility] on above:Order Comment: Specimen Type: BLOOD SPECIMENOrdering Facility: [facility] Address:[address] [place], [place] [address]Performed By: #### 40107-3 ####[facility] LABIA [id number] 42 HALL STREETMCH (RBC) [Entitic mass]31.9 pg Sdohur74.0-34.0[facility] on above:Order Comment: Specimen Type: BLOOD SPECIMENOrdering Facility: [facility] Address:[address] [place], [place] [address]Performed By: #### 22704-3 ####[facility] LABIA [id number] [place] [id number] [facility] (RBC) [Mass/Vol]33.2 g/dL Qczgbr59.5-36.0[facility] on above:Order Comment: Specimen Type: BLOOD SPECIMENOrdering Facility: [facility] Address:[address] [place], [place] [address]Performed By: #### 23638-4 ####[facility] LABCLIA [id number] [address]ETMCV (RBC) [Entitic vol]96.1 fL Lqlqec52.0-100.0[facility] on above:Order Comment: Specimen Type: BLOOD SPECIMENOrdering Facility: [facility] Address:[address] [place], [place] [address]Performed By: #### 07930-0 ####[facility] LABIA [id number] [address]ETucleated RBC (Bld) [#/Vol] 10*3/uLNormal<0.01[facility] on above:Order Comment: Specimen Type: BLOOD SPECIMENOrdering Facility: [facility] Address:[address] [place], [place] [address]Performed By: #### 45420-7 ####[facility] LABIA [id number] [address] OF AMERICAPlatelet mean volume (Bld) [Entitic vol]10.3 fLNormal9.0-12.7CL[facility] on above: Order Comment: Specimen Type: BLOOD SPECIMENOrdering Facility: [facility] Address:[address] [place], [place] [address]Performed By: #### 14749- 2 ####[facility] LABCLIA [id number] [place] [address] [place] AMERICAPlatelets (Bld) [#/Vol]278 10*3/fRWcqfwu454-185Gdoxftuup Clinic ClevelandComment on above:Order Comment: Specimen Type: BLOOD SPECIMENOrdering Facility: [facility] Address:[address] [place], [place] [address]Performed By: #### 49759-0 ####[facility] LABCLIA [id number] [address]ETRBC (Bld) [#/Vol]4.83 10*6/uL Normal4.20-6.00[facility] Healthcare SystemComment on above:Order Comment: Specimen Type: BLOOD SPECIMENOrdering Facility: [facility] Address:[address] [place], [place] [address]Performed By: #### 24716-1 ####[facility] LABIA [id number] [address]ETWBC (Bld) [#/Vol]9.67 10*3/uL Normal3.70-11.00[facility]cmc Healthcare SystemComment on above:Order Comment: Specimen Type: BLOOD SPECIMENOrdering Facility: [facility] Address:[address] [place], [place] [address]Performed By: #### 64923-4 ####[facility] LABIA [id number] [address]ETCNCOon 99-53-3203ZOZBZqzsqi Text NormalAcmc Healthcare SystemCNOVon 18-47-8820XGEYHoppmf Visit (PSYRMN) SAHRA TSE ([id number]) 1960 M Date Time Provider Department 08/21/24 8:30 AM PEDRO SOLARES PSYRMN During your visit today, we recorded the following information about you: Pedro Solares MD 08/21/2024 11:53 AM Signed FOLLOW UP - PSYCHIATRIC PROGRESS NOTE Visit Type:In person Reason for Visit: Outpatient follow-up and safety monitoring of previously prescribed psychiatric medication, psychotherapy or other treatment CC: My mood is all over the place HPI: Pt is a 64 yo M with medical history of KEI on CPAP, HTN, HLD, GERD, who presented to clinic to reestablish care after being lost to follow up in resident clinic. He has trialed Gabapentin (drowsy), Effexor (2005), Wellbutrin, Prozac, Celexa, Lexapro, Zoloft, Pristiq, Paxil, Propanolol (2010), Abilify (2663-6597), [place] (drooling, 2009), Focalin (nausea) (obtained via chart review as pt has limited recollection of trials). He is currently taking: Cymbalta 90 mg every day, Wellbutrin XL 300 mg every day, and Lamictal 400 mg every day. Pt brought up examples of symptoms he has been experiencing from browsing TikTok. Pt notes increase in emotional outbursts both at work and at home followed by crying episodes with mixed emotions of feeling overwhelmed and remorseful. He experiences over thinking thing and worrying about future events. He notes feeling forgetful and has trouble concentrating. He notes associated nausea, tension, irritability. He does experience intermittent thoughts of wanting to always triggered by arguments. Denies current SI/HI. Denies intent. Denies having a current plan. Denies current access to guns as he sold them many years ago to limit access. Discusses safety planning and reports having a colleague at work that he can talk to. Pt notes that based on his reading, he believes that Cymbalta has been beneficial for him and would like to optimize this dose. Pt has not been following with a therapist. He expresses intent to do so. Risks and benefits of the medication, including any black box warnings, were discussed with the patient. Interval Progress: Same PATIENT DATA: Generalized Anxiety Disorder Scale (PEPE-7) 09/19/2023 11/12/2023 08/17/2024 PEPE - 7 SCORES Score 14 19 19 (0-4) minimal anxiety, (5-9) mild anxiety, (10-14) moderate anxiety, (15-21) severe anxiety Patient Health Questionnaire (PHQ-9) 09/19/2023 11/12/2023 08/17/2024 PHQ-9 Score 11 15 21 (0-4) minimal depression, (5-9) mild depression, (10-14) moderate depression, (15-19) moderately severe depression, (20-27) severe depression PROMIS Global Health 01/17/2023 09/19/2023 08/17/2024 PROMIS Global Health - (T-Scores - the mean of general population = 50. Five points is a clinically meaningful difference.) Physical T-Score 29.6 34.9 Mental T-Score 33.8 25.1 21.2 No past medical history on file. No past surgical history on file. Current Outpatient Medications Medication Sig Dispense Refill DULoxetine (CYMBALTA) 60 mg capsule Take 1 capsule by mouth once daily. 90 capsule 0 DULoxetine (CYMBALTA) 30 mg capsule Take 1 capsule by mouth once daily. 90 capsule 0 lamoTRIgine (LAMICTAL) 200 mg tablet TAKE 2 TABLETS ONCE DAILY 180 tablet 3 buPROPion XL (WELLBUTRIN XL) 300 mg 24 hr tablet take 1 tablet daily 90 tablet 3 cholecalciferol (VITAMIN D3) 1,000 unit tab tablet Take 1 tablet by mouth once daily. Required to schedule an appointment with [facility] for further refills. 90 tablet 1 LISINOPRIL-HYDROCHLOROTHIAZIDE 20 MG-12.5 MG TAB take one daily 0 0 PANTOPRAZOLE 40 MG TAB, DELAYED RELEASE take one tab daily 0 0 SIMVASTATIN 80 MG TAB take one tab daily 0 0 diltiazem hcl(CARDIZEM CD 240 MG 24 HR CAP) take one tab 0 0 No current facility-administered medications for this visit. ROS: GENERAL: Negative RESPIRATORY: Negative CARDIOVASCULAR: Negative GI: Negative NEURO: Negative All other systems negative. PFSH: No interval updates. VITAL SIGNS: There were no vitals filed for this visit. MENTAL STATUS EXAM: Appearance: Casually dressed Behavior: Behaves appropriately during the encounter Social relatedness: Euthymic Speech/Language: The patient demonstrates appropriate tone, prosody, pili, phonetics, and syntax Mood: anxious Affect: Full and appropriate to topic Orientation: Person, Place, Time and Situation Associations: Intact and linear Hallucinations: None Delusions: None Suicidal Ideation: No suicidal ideation, intent or plan. Homicidal Ideation: No homicidal ideation, intent or plan. Insight: Fair Judgment: Fair Concentration: Good Abstraction: intact Fund of Knowledge: appropriate to age and education level Memory: Fair Language: Fluent Grenadian DATA REVIEWED: Electronic medical record DIAGNOSIS: Major depressive disorder, moderate, with seasonal patter (more content not included)...NormalParma Community General HospitalPNon 20-50-9728XSILYwvpwcjzn (PSYRMN) SAHRA TSE ([id number]) 1960 M Date Time Provider Department 08/21/24 PEDRO SOLARES PSYRMN During your visit today, we recorded the following information about you: Pedro Solares MD 08/21/2024 11:59 AM Signed Spoke with patient who requested transfer of care. Advised of the following: - Request will be reviewed by clinical committee. - Case will be reviewed within 3-4 weeks. - Transfer request is not guaranteed. - Response/decision will be sent via [employer] message (or [employer] letter for non-[employer] users). - Our providers specialize in a short-term model and will look to treat the patient and then refer back to primary care or to a long-term external provider. Original provider: Dr. Pedro Solares Reason for transfer request: Pt notes significantly difficulty with commute to main [place] for appointments and has had multiple missed appointments for the past year. He is also unable to complete virtual visits due to technologic difficulties. Requested provider (if applicable): [place] from [place], [place]) Capri Wood 08/27/2024 12:52 PM Signed Status of request: PENDING Case will be reviewed at upcoming clinical transfer of care committee. Added to agenda. Capri Wood 09/20/2024 11:24 AM Signed Status of request: FINALIZED Case was discussed with clinical transfer of care committee. No providers near patient and due to difficulties with virtual care, no internal providers would be appropriate. At this time, the committee feels that the original provider has recommended appropriate treatment options and provided quality care. The recommendation is that patient continue with original provider or seek care at the following organization(s): [facility] [phone] [facility] and [facility] [phone] [facility] [phone] Patient will be contacted to advise. Allergies As of Date: 08/21/2024 (No Known Allergies) Date Reviewed: 09/21/2023 Reviewed by: Kena Mo MA - Fully Assessed Reason for Visit: Transfer of Care - FINALIZED [Other] Prescriptions as of 09/20/2024 - DULoxetine DR (CYMBALTA) 60 mg capsule Take 2 capsules by mouth once daily. - lamoTRIgine (LAMICTAL) 200 mg tablet TAKE 2 TABLETS ONCE DAILY - buPROPion XL (WELLBUTRIN XL) 300 mg 24 hr tablet take 1 tablet daily - cholecalciferol (VITAMIN D3) 1,000 unit tab tablet Take 1 tablet by mouth once daily. Required to schedule an appointment with [facility] psychiatry for further refills. - LISINOPRIL-HYDROCHLOROTHIAZIDE 20 MG-12.5 MG TAB take one daily - PANTOPRAZOLE 40 MG TAB, DELAYED RELEASE take one tab daily - SIMVASTATIN 80 MG TAB take one tab daily - diltiazem hcl(CARDIZEM CD 240 MG 24 HR CAP) take one tab Problem List As Of Date 08/21/2024 Noted Resolved ADHD (attention deficit hyperactivity disorder)*08/27/2015 PEPE (generalized anxiety disorder) [F41.1] 10/21/2015 Attention-deficit hyperactivity disorder, combi*09/27/2016 Encounter Status:Closed by PEDRO SOLARES on 08/21/24NormalCTrinity Health SystemComprehensive metabolic 2000 panelon 20-93-9020Gnhinnd [Mass/Vol]4.2 g/dLNormal3.9-4.9CTrinity Health SystemComment on above:Order Comment: Specimen Type: BLOOD SPECIMENOrdering Facility: [facility] Address:[address] [place], [place] [address]Performed By: #### 49414-1, 3016-3, 93368-6 ####[facility] LABCLIA [id number] [place] [address] [place] AMERICAALP [Catalytic activity/Vol]115 U/OFhhu03-734NoeplfkgsSelect [facility] on above:Order Comment: Specimen Type: BLOOD SPECIMENOrdering Facility: [facility] Address:[address] [place], [place] [address]Performed By: #### 93353-8, 3, 05546-5 ####[facility] LABCLIA [id number] [address] [place] [address] [place] AMERICAALT [Catalytic activity/Vol]29 U/BCyjrrm83-02FbxdkofxqSelect [facility] on above:Order Comment: Specimen Type: BLOOD SPECIMENOrdering Facility: [facility] Address:[address] [place], [place] [address]Performed By: #### 64436-4, 3, 51953-0 ####[facility] LABCLIA [id number] [address] [place] [address] [place] AMERICAAnion gap [Moles/Vol]13 mmol/L Normal8-15[facility] on above:Order Comment: Specimen Type: BLOOD SPECIMENOrdering Facility: [facility] Address:[address] [place], [place] [address]Performed By: #### 39736-2, 3, 28726-6 ####[facility] LABCLIA [id number] [address] [place] [address] [place] AMERICAAST [Catalytic activity/Vol]22 U/WHayxvk95-29NtsrzaxtvSelect Medical Specialty [facility] on above:Order Comment: Specimen Type: BLOOD SPECIMENOrdering Facility: [facility] Address:[address] [place], [place] [address]Performed By: #### 78142-7, 3015-3, 59435-0 ####[facility] LABCLIA [id number] [place] [address] [place] AMERICABilirubin [Mass/Vol]0.3 mg/dL Normal0.2-1.3CL[facility] on above:Order Comment: Specimen Type: BLOOD SPECIMENOrdering Facility: [facility] Address:[address] [place], [place] [address]Performed By: #### 86744-8, 3016-3, 87025-1 ####[facility] LABCLIA [id number] [address] [place] AMERICACalcium [Mass/Vol]9.3 mg/dLNormal 8.5-10.2CLou[facility] on above:Order Comment: Specimen Type: BLOOD SPECIMENOrdering Facility: [facility] Address:[address] [place], [place] [address]Performed By: #### 73488-8, 3016-3, 56432-4 ####[facility] LABCLIA [id number] [address] [place] AMERICAChloride [Moles/Vol]100 mmol/L Jyczax62-835IjwanvmliSelect Medical Specialty [facility] on above:Order Comment: Specimen Type: BLOOD SPECIMENOrdering Facility: [facility] Address:[address] [place], [place] [address]Performed By: #### 63130-8, 3016-3, 60229-3 ####[facility] LABCLIA [id number] [place] [id number] [place] AMERICACO2 [Moles/Vol]24 mmol/LNormal 22-30[facility] on above:Order Comment: Specimen Type: BLOOD SPECIMENOrdering Facility: [facility] Address:[address] [place], [place] [address]Performed By: #### 70192-0, 3016-3, 89074-9 ####[facility] LABCLIA [id number] [place] [address] [place] AMERICACreatinine [Mass/Vol]1.07 mg/dL Normal0.73-1.22[facility] on above:Order Comment: Specimen Type: BLOOD SPECIMENOrdering Facility: [facility] Address:[address] [place], [place] [address]Performed By: #### 79306-1, 3016-3, 94872-2 ####[facility] LABIA [id number] [address] [place] AMERICAeGFRcr SerPlBld CKD-EPI 269897 mL/min/1.73m???Normal>=60[facility] on above:Order Comment: Specimen Type: BLOOD SPECIMENOrdering Facility: [facility] Address:[address] [place], [place] [address]Result Comment: Estimated Glomerular Filtration Rate (eGFR) is calculated using the 2020 CKD-EPI cre atinine equation. This equation utilizes serum creatinine, sex, and age as parameters. The creatinine assay has traceable calibration to isotope dilution- mass spectrometry. Refer to KDIGO guidelines for clinical interpretation. In patients with unstable renal function, e.g. those with acute kidney injury, the eGFR may not accurately reflect actual GFR.Performed By: #### 06321-8, 6-3, 58699-2 ####[facility] LABIA [id number] [address] [place] AMERICAGlucose [Mass/Vol]270 mg/dLHigh 74-99[facility] on above:Order Comment: Specimen Type: BLOOD SPECIMENOrdering Facility: [facility] Address:[address] [place] [address]Cikeac Comment: The [place] Diabetes Association (ADA) provides guidance for cutoff values for fasting glucose and random glucose. The ADA defines fasting as no [...] Standards of Medical Care in Diabetes 2016, [place] [employer]. Diabetes Care. 2016.39(Suppl 1).Performed By: #### 71568-6, 3015-3, ####[facility] LABCLIA [id number] [address] [place] AMERICAPotassium [Moles/Vol] 4.7 mmol/LNormal3.7-5.1CLou[facility] on above:Order Comment: Specimen Type: BLOOD SPECIMENOrdering Facility: [facility] Address:[address] [place], [place] [address]Performed By: #### 87983-2, 3, ####[facility] LABIA [id number] [address] [place] AMERICAProtein [Mass/Vol]6.6 g/dLNormal 6.3-8.0[facility] on above:Order Comment: Specimen Type: BLOOD SPECIMENOrdering Facility: [facility] Address:[address] [place], [place] [address]Performed By: #### 65386-4, 3, ####[facility] LABIA [id number] [address] [place] STATES OF AMERICASodium [Moles/Vol]137 mmol/L Evmxzm138-103VvscklofqSelect [facility] on above:Order Comment: Specimen Type: BLOOD SPECIMENOrdering Facility: [facility] Address:[address] [place], [place] [address]Performed By: #### 02616-5, 3, 02795-7 ####[facility] LABIA [id number] [address] [place] AMERICAUrea nitrogen [Mass/Vol]12 mg/dL Normal9-24[facility] on above:Order Comment: Specimen Type: BLOOD SPECIMENOrdering Facility: [facility] Address:[address] [place], [place] [address]Performed By: #### 52573-4, 3016-3, 17171-1 ####[facility] LABCLIA [id number] [address] [place] AMERICAErythrocyte distribution width Auto (RBC) [Ratio]Ordered By: Outside Provider on 99-05-8648Kppxlmjphct distribution width (RBC) [Ratio]12.6 %11.5-15.0[facility] Hematocrit Auto (Bld) [Volume fraction]Ordered By: Outside Provider on 62-41-9721Frlxiurgty (Bld) [Volume fraction]46.4 %39.0-51.0[facility] CenterHemoglobin [Mass/volume] in BloodOrdered By: Outside Provider on 42-18-4927Jkmsqwwnwy (Bld) [Mass/Vol]15.4 g/dL13.0-17.0[facility] CenterLaboratory - Chemistry and Chemistry - challengeOrdered By: Outside Provider on 05-76-8549Ftkzqelgs [Mass/Vol]2.4 mg/dLHigh1.7-2.3FTriHealth Bethesda North HospitalTS Qn1.180 m[IU]/L0.270-4.200[facility] Medical CenterLeukocytes [#/volume] corrected for nucleated erythrocytes in Blood by Automated counOrdered By: Outside Provider on 45-17-3357RCM corrected for nucl RBC Auto (Bld) [#/Vol]9.67 k/uL3.70-11.00[facility] HospitalH Auto (RBC) [Entitic mass]Ordered By: Outside Provider on 67-55-6223YKT (RBC) [Entitic mass]31.9 pg26.0-34.0[facility] HospitalHC Auto (RBC) [Mass/Vol]Ordered By: Outside Provider on 60-23-5395UEBP (RBC) [Mass/Vol]33.2 g/dL30.5-36.0[facility] CenterMCV Auto (RBC) [Entitic vol] Ordered By: Outside Provider on 61-64-2945ITJ (RBC) [Entitic vol]96.1 fL 80.0-100.0[facility] Medical CenterMagnesium SerPl-mCncon 08-21-2024 Magnesium [Mass/Vol]2.4 mg/dLHigh1.7-2.3CLou[facility] on above:Order Comment: Specimen Type: BLOOD SPECIMENOrdering Facility: [facility] Address:[address] [place], [place] [address]Performed By: #### 25936-4, 3016-3, 21818-9 ####[facility] LABCLIA [id number] [address] [place] Nucleated RBC Auto (Bld) [#/Vol]Ordered By: Outside Provider on 08-21-2024 Nucleated RBC (Bld) [#/Vol]10*3/uL<0.01[facility] Medical CenterPlatelet mean volume Auto (Bld) [Entitic vol]Ordered By: Outside Provider on 08-21-2024 Platelet mean volume (Bld) [Entitic vol]10.3 fL9.0-12.7FTriHealth Bethesda North HospitalPlatelets Auto (Bld) [#/Vol]Ordered By: Outside Provider on 56-16-2737Jtuhdsjyv (Bld) [#/Vol]278 10*3/tU697-724WadmsmlbsLakehealth Tripoint Medical CenterRBC Auto (Bld) [#/Vol]Ordered By: Outside Provider on 42-91-3341JDM (Bld) [#/Vol]4.83 10*6/uL4.20-6.00[facility] SerPl-aCncon 34-96-4193UHS Qn1.180 m[IU]/LNormal0.270-4.200[facility] on above:Order Comment: Specimen Type: BLOOD SPECIMENOrdering Facility: [facility] Address:[address] [place] [address] Performed By: #### 55157-6, 6-3, 09903-6 ####[facility] LABCLIA [id number] [address] [place] AMERICACNPNon 87-47-0937JASLWctqczdho (PSYRMN) SAHRA TSE ([id number]) 1960 M Date Time Provider Department 07/03/24 PEDRO SOLARES PSYRMN During your visit today, we recorded the following information about you: Amanda Munoz 07/03/2024 8:56 AM Signed Patient called about his 8:30a VV. He said that he couldn't get away from work and was trying to log in for the visit and is having issues. I advised him I'd send Dr. Solares a message to advise and see if she can call him. If not, he'll have to reschedule. *After we hung up and I saw visit notes from today.* Allergies As of Date: 07/03/2024 (No Known Allergies) Date Reviewed: 09/21/2023 Reviewed by: Kena Mo MA - Fully Assessed Reason for Visit: Appointment [186] Prescriptions as of 07/03/2024 - DULoxetine (CYMBALTA) 60 mg capsule Take 1 capsule by mouth once daily. - DULoxetine (CYMBALTA) 30 mg capsule Take 1 capsule by mouth once daily. - lamoTRIgine (LAMICTAL) 200 mg tablet TAKE 2 TABLETS ONCE DAILY - buPROPion XL (WELLBUTRIN XL) 300 mg 24 hr tablet take 1 tablet daily - cholecalciferol (VITAMIN D3) 1,000 unit tab tablet Take 1 tablet by mouth once daily. Required to schedule an appointment with [facility] for further refills. 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 [employer] message sent to advise this was sent to [email or web address] on 06/11. Allergies As of Date: 06/20/2024 (No Known Allergies) Date Reviewed: 09/21/2023 Reviewed by: Kena Mo MA - Fully Assessed Reason for Visit: Refill Request [94] Prescriptions as of 06/20/2024 - DULoxetine (CYMBALTA) 60 mg capsule Take 1 capsule by mouth once daily. - DULoxetine (CYMBALTA) 30 mg capsule Take 1 capsule by mouth once daily. - lamoTRIgine (LAMICTAL) 200 mg tablet TAKE 2 TABLETS ONCE DAILY - buPROPion XL (WELLBUTRIN XL) 300 mg 24 hr tablet take 1 tablet daily - cholecalciferol (VITAMIN D3) 1,000 unit tab tablet Take 1 tablet by mouth once daily. Required to schedule an appointment with [facility] for further refills. 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 Per , he is asking for a 90 day supply of Cymbalta sent to [facility]. Per [facility], Cymbalta scripts up to date. Forwarding to provider Allergies As of Date: 06/19/2024 (No Known Allergies) Date Reviewed: 09/21/2023 Reviewed by: Kena Mo MA - Fully Assessed Prescriptions as of 06/19/2024 - DULoxetine (CYMBALTA) 60 mg capsule Take 1 capsule by mouth once daily. - DULoxetine (CYMBALTA) 30 mg capsule Take 1 capsule by mouth once daily. - lamoTRIgine (LAMICTAL) 200 mg tablet TAKE 2 TABLETS ONCE DAILY - buPROPion XL (WELLBUTRIN XL) 300 mg 24 hr tablet take 1 tablet daily - cholecalciferol (VITAMIN D3) 1,000 unit tab tablet Take 1 tablet by mouth once daily. Required to schedule an appointment with [facility] for further refills. 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 A 90day supply was requested in the 05/13 refill request. Rashaun Adams MD 06/11/2024 8:40 AM Signed Covering for Dr. Solares. Patient requesting Cymbalta 60 mg RX for 90 day supply be submitted to [email or web address]. Request approved. Allergies As of Date: 06/11/2024 (No Known Allergies) Date Reviewed: 09/21/2023 Reviewed by: Kena Mo MA - Fully Assessed Reason for Visit: Medication Question [9158] Order(s):DULoxetine (CYMBALTA) 60 mg capsuleTake 1 capsule by mouth once daily.Disp: 90 capsuleRfl: 0 Prescriptions as of 06/11/2024 - DULoxetine (CYMBALTA) 60 mg capsule Take 1 capsule by mouth once daily. - DULoxetine (CYMBALTA) 30 mg capsule Take 1 capsule by mouth once daily. - lamoTRIgine (LAMICTAL) 200 mg tablet TAKE 2 TABLETS ONCE DAILY - buPROPion XL (WELLBUTRIN XL) 300 mg 24 hr tablet take 1 tablet daily - cholecalciferol (VITAMIN D3) 1,000 unit tab tablet Take 1 tablet by mouth once daily. Required to schedule an appointment with [facility] for further refills. 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 Medications Discontinued During This Encounter Prescriptions - DULoxetine (CYMBALTA) 60 mg capsule (Discontinued) Take 1 capsule by mouth once daily. Encounter Status:Closed by RASHAUN ADAMS on 06/11/24[facility] A1C with Estimated Average Gluon 68-84-2968Rfpikjg [Mass/Vol]186 mg/dLSt. Joseph's Hospital Physician GroupComment on above:Result Comment: PERFORMED BY: [facility] [address] [place] [address] PATHOLOGIST SKILLED HELPER SHANDA JUSTIN M.D.Performed By: #### LIPID, A1C WTH eA, CMP, LIPASE, KHUSHBU, TSH3 wRFLX, [id number], CBC ####[facility] [address] [place] [address] [facility]#### TEST F + T ####[facility] ,HbA1c (Bld) [Mass fraction]8.1 %High4.3-5.6The Critical Access Hospital Physician GroupComment on above:Result Comment: Increased risk for diabetes: 5.7 - 6.4 diabetes: >6.4 glycemic control for adults with diabetes: <7.0Performed By: #### LIPID, A1C WTH eA, CMP, LIPASE, KHUSHBU, TSH3 wRFLX, [id number], CBC ####[facility] [address]#### TEST F + T ####[facility] ,Alanine aminotransferase [Enzymatic activity/volume] in Serum or PlasmaOrdered By: Mejia Phillips on 56-35-9700ODA [Catalytic activity/Vol]Alanine aminotransferase [Enzymatic activity/volume] in Serum or Plasma7[facility] CenterAlbumin [Mass/volume] in Serum or Plasma by Bromocresol green (BCG) dye binding methoOrdered By: Mejia Phillips on 01-88-5177Gjzjysj BCG dye [Mass/Vol]Albumin [Mass/volume] in Serum or Plasma by Bromocresol green (BCG) dye binding metho3.5-5.7FTriHealth Bethesda North HospitalAlkaline phosphatase [Enzymatic activity/volume] in Serum or PlasmaOrdered By: Mejia Phillips on 42-84-1692VJK [Catalytic activity/Vol]Alkaline phosphatase [Enzymatic activity/volume] in Serum or Vapids52-118UazwoqyfaLakehealth Tripoint Medical Center Amylaseon 70-75-9684Wkcfggf [Catalytic activity/Vol]37 U/ANwqifc66-360Fau [facility] Access Hospital Physician GroupComment on above:Performed By: #### LIPID, A1C WTH eA, CMP, LIPASE, KHUSHBU, TSH3 wRFLX, [id number], CBC #### [facility] [address] #### TEST F + T #### [facility] ,Amylase [Enzymatic activity/volume] in Serum or PlasmaOrdered By: Mejia Phillips on 61-91-1289Iqplfmt [Catalytic activity/Vol]Amylase [Enzymatic activity/volume] in Serum or Yxwlfi61-181XhsyxamleLakehealth Tripoint Medical CenterAspartate aminotransferase [Enzymatic activity/volume] in Serum or PlasmaOrdered By: Mejia Phillips on 19-78-0931TOM [Catalytic activity/Vol]Aspartate aminotransferase [Enzymatic activity/volume] in Serum or Gdjdyz91-29KeyuipbdeLakehealth Tripoint Medical CenterBasophils Auto (Bld) [#/Vol]Ordered By: Mejia Phillips on 80-99-7783Edixwnyaw (Bld) [#/Vol]Automated basophil count0.0-0.2FTriHealth Bethesda North HospitalBasophils/100 WBC Auto (Bld)Ordered By: Mejia Phillips on 89-94-2283Oxnfgyslr/100 WBC (Bld)Automated basophil %.[facility] CenterBilirubin.total [Mass/volume] in Serum or PlasmaOrdered By: Mejia Phillips on 77-33-1097Zuqbvmncv [Mass/Vol]Bilirubin.total [Mass/volume] in Serum or Plasma0.3-1.0L[facility] Medical CenterBlood estimated average glucose determination by estimation from glycated hemoglobinOrdered By: Mejia Phillips on 19-57-4905Hbizqoh glucose Estimated from glycated hemoglobin (Bld) [Mass/Vol] Glucose mean value [Mass/volume] in Blood Estimated from glycated hemoglobin [facility] CenterCalcium [Mass/volume] in Serum or PlasmaOrdered By: Mejia Phillips on 52-00-0655Rsnvwia [Mass/Vol]Calcium [Mass/volume] in Serum or Plasma8.6-10.3FTriHealth Bethesda North HospitalCarbon dioxide, total [Moles/volume] in Serum or PlasmaOrdered By: Mejia Phillips on 97-12-9697ID6 [Moles/Vol]Carbon dioxide, total [Moles/volume] in Serum or Drbdao77.0-31.0 [facility] CenterChloride [Moles/volume] in Serum or Plasma Ordered By: Mejia Phillips on 55-26-8217Wmwjwkcs [Moles/Vol]Chloride [Moles/volume] in Serum or Xfyztn08-470ChuoqxxzmLakehealth Tripoint Medical Center Cholesterol [Mass/volume] in Serum or PlasmaOrdered By: Mejia Phillips on 74-40-0484Nascjoaxvug [Mass/Vol]Cholesterol [Mass/volume] in Serum or Plasma 140-200L[facility] Medical CenterComment on above:Chol less than 200 mg/dl low riskChol 201-239 mg/dl borderline riskChol 240 mg/dl and greater high riskCholesterol in HDL [Mass/volume] in Serum or PlasmaOrdered By: Mejia Phillips on 23-02-5434Yfisccsesyx in HDL [Mass/Vol]Serum or plasma high density lipoprotein (HDL) cholesterol ibavqaaauyv27-64LxwaqjqbzLakehealth Tripoint Medical Center Comment on above:HDL CHOL ATP-III CLASSIFICATION Cardiovascular RiskHDL > or equal to 60 mg/dL LOWHDL < 40 mg/dL HIGHCholesterol in LDL Calc [Mass/Vol] Ordered By: Mejia Phillips on 73-65-2725Dvsjwclwbfj in LDL [Mass/Vol]Cholesterol in LDL [Mass/volume] in Serum or Plasma by calculationLakehealth Tripoint Medical CenterComment on above:LDL ATP III CLASSIFICATIONLDL less than 100 mg/dL OptimalLDL 100-129 mg/dL Near or above oljorgbAAV615-893 mg/dL Borderline highLDL 160-189 mg/dL HighLDL greater than 189 mg/dL Very highCholesterol in VLDL Calc [Mass/Vol]Ordered By: Mejia Phillips on 51-32-0704Ecudwbwzfhq in VLDL [Mass/Vol]Cholesterol in VLDL [Mass/volume] in Serum or Plasma by calculation [facility] CenterComplete Blood Count Auto Diffon 05-24-2024 Basophils (Bld) [#/Vol]0.1 10*3/uLNormal0.0-0.2The [facility] Comment on above:Result Comment: PERFORMED BY: [place] [address] PATHOLOGIST SKILLED HELPER SHANDA JUSTIN M.D.Performed By: #### LIPID, A1C WTH eA, CMP, LIPASE, KHUSHBU, TSH3 wRFLX, [id number], CBC #### [facility] [address] [place] [address] [place] #### TEST F + T #### [facility] ,Basophils/100 WBC (Bld)0.7 %Normal.The [facility] Access Hospital Physician GroupComment on above:Performed By: #### LIPID, A1C WTH eA, CMP, LIPASE, KHUSHBU, TSH3 wRFLX, [id number], CBC #### [facility] [address] [place] [address] [place] #### TEST F + T #### [facility] ,Eosinophils (Bld) [#/Vol]0.0 10*3/uLNormal0.0-0.45[facility] Comment on above:Performed By: #### LIPID, A1C WTH eA, CMP, LIPASE, KHUSHBU, TSH3 wRFLX, [id number], CBC #### [facility] [address] [place] [address] #### TEST F + T #### [facility] ,Eosinophils/100 WBC (Bld)0.6 %Normal.The Critical Access Hospital Physician GroupComment on above:Performed By: #### LIPID, A1C WTH eA, CMP, LIPASE, KHUSHBU, TSH3 wRFLX, [id number], CBC #### [facility] [address] [place] [address] #### TEST F + T #### [facility] ,Erythrocyte distribution width (RBC) [Ratio]12.5 %Mbooio22.0-14.8The Critical Access Hospital Physician GroupComment on above:Performed By: #### LIPID, A1C WTH eA, CMP, LIPASE, KHUSHBU, TSH3 wRFLX, [id number], CBC #### [facility] [address] [place] [address] #### TEST F + T #### [facility] ,Hematocrit (Bld) [Volume fraction]47.9 %Taptyl19.8-50.0The Critical Access Hospital Physician GroupComment on above:Performed By: #### LIPID, A1C WTH eA, CMP, LIPASE, KHUSHBU, TSH3 wRFLX, [id number], CBC #### [facility] [address] [place] [address] [place] #### TEST F + T #### [facility] ,Hemoglobin (Bld) [Mass/Vol]16.4 g/vTPafxoz77.0-17.0The Critical Access Hospital Physician GroupComment on above:Performed By: #### LIPID, A1C WTH eA, CMP, LIPASE, KHUSHBU, TSH3 wRFLX, [id number], CBC #### [address] #### TEST F + T #### [facility] ,Lymphocytes (Bld) [#/Vol]2.6 10*3/uLNormal1.00-4.8[facility] Comment on above:Performed By: #### LIPID, A1C WTH eA, CMP, LIPASE, KHUSHBU, TSH3 wRFLX, [id number], CBC #### [address] #### TEST F + T #### [facility] ,Lymphocytes/100 WBC (Bld)33.4 %Normal.The Critical Access Hospital Physician GroupComment on above:Performed By: #### LIPID, A1C WTH eA, CMP, LIPASE, KHUSHBU, TSH3 wRFLX, [id number], CBC #### [address] #### TEST F + T #### [facility] ,MCH (RBC) [Entitic mass]32.1 fdCcuplp56.5-35.2[facility] Comment on above:Performed By: #### LIPID, A1C WTH eA, CMP, LIPASE, KHUSBHU, TSH3 wRFLX, [id number], CBC #### [address] #### TEST F + T #### [facility] ,MCV (RBC) [Entitic vol]93.7 dNKkxyod12.5-101The [facility] Comment on above:Performed By: #### LIPID, A1C WTH eA, CMP, LIPASE, KHUSHBU, TSH3 wRFLX, [id number], CBC #### [address] #### TEST F + T #### [facility] ,Mean Corpuscular HGB Conc34.3 g/pBPetovm04.5-35.6[facility] Comment on above:Performed By: #### LIPID, A1C WTH eA, CMP, LIPASE, KHUSHBU, TSH3 wRFLX, [id number], CBC #### [place] [address] [place] #### TEST F + T #### [facility] ,Monocytes (Bld) [#/Vol]0.7 10*3/uLNormal0.0-0.8[facility] Comment on above:Performed By: #### LIPID, A1C WTH eA, CMP, LIPASE, KHUSHBU, TSH3 wRFLX, [id number], CBC #### [place] [address] [place] #### TEST F + T #### [facility] ,Monocytes/100 WBC (Bld)8.6 %Normal.The [facility] Access Hospital Physician GroupComment on above:Performed By: #### LIPID, A1C WTH eA, CMP, LIPASE, KHUSHBU, TSH3 wRFLX, [id number], CBC #### [address] #### TEST F + T #### [facility] ,Neutrophils (Bld) [#/Vol]4.4 10*3/uLNormal1.8-7.7The [facility] Comment on above:Performed By: #### LIPID, A1C WTH eA, CMP, LIPASE, KHUSHBU, TSH3 wRFLX, [id number], CBC #### [place] [address] [place] #### TEST F + T #### [facility] ,Neutrophils/100 WBC (Bld)56.7 %Normal.The [facility] Access Hospital Physician GroupComment on above:Performed By: #### LIPID, A1C WTH eA, CMP, LIPASE, KHUSHBU, TSH3 wRFLX, [id number], CBC #### [facility] [address] [place] [address] [place] #### TEST F + T #### [facility] ,NRBC%0.1 /100{WBC}Normal0-0.5The Critical Access Hospital Physician GroupComment on above: Performed By: #### LIPID, A1C WTH eA, CMP, LIPASE, KHUHSBU, TSH3 wRFLX, [id number], CBC #### [address] #### TEST F + T #### [facility] ,Platelet mean volume (Bld) [Entitic vol]8.3 fLNormal6.6-10.1The Critical Access Hospital Physician GroupComment on above:Performed By: #### LIPID, A1C WTH eA, CMP, LIPASE, KHUSHBU, TSH3 wRFLX, [id number], CBC #### [facility] [address] [place] [address] #### TEST F + T #### [facility] ,Platelets (Bld) [#/Vol]214 10*3/cIYbaudn002-567Eat [facility] Comment on above:Performed By: #### LIPID, A1C WTH eA, CMP, LIPASE, KHUSHBU, TSH3 wRFLX, [id number], CBC #### [facility] [address] [place] [address] #### TEST F + T #### [facility] ,RBC (Bld) [#/Vol]5.11 10*6/uLNormal3.90-5.60The [facility] Comment on above:Performed By: #### LIPID, A1C WTH eA, CMP, LIPASE, KHUSHBU, TSH3 wRFLX, [id number], CBC #### [facility] [address] [place] [address] [place] #### TEST F + T #### [facility] ,WBC (Bld) [#/Vol]7.7 10*3/uLNormal4.1-10.5The [facility] Access Hospital Physician GroupComment on above:Performed By: #### LIPID, A1C WTH eA, CMP, LIPASE, KHUSHBU, TSH3 wRFLX, [id number], CBC #### [address] #### TEST F + T #### [facility] ,Comprehensive Metabolic Panelon 73-02-8033Qljpqcp [Mass/Vol]4.2 g/dLNormal 3.5-5.7The [facility] Hospital Physician GroupComment on above:Performed By: #### LIPID, A1C WTH eA, CMP, LIPASE, KHUSHBU, TSH3 wRFLX, [id number], CBC #### [address] #### TEST F + T #### [facility] ,Albumin/Globulin [Mass ratio]1.7 {ratio}NormalThe [facility] Group Comment on above:Performed By: #### LIPID, A1C WTH eA, CMP, LIPASE, KHUSHBU, TSH3 wRFLX, [id number], CBC #### [address] #### TEST F + T #### [facility] ,ALP [Catalytic activity/Vol]87 U/RRzidkt35-667Jcu [facility] Comment on above:Performed By: #### LIPID, A1C WTH eA, CMP, LIPASE, KHUSHBU, TSH3 wRFLX, [id number], CBC #### [address] #### TEST F + T #### [facility] ,ALT [Catalytic activity/Vol]35 U/LNormal7-52The [facility] Comment on above:Performed By: #### LIPID, A1C WTH eA, CMP, LIPASE, KHUSHBU, TSH3 wRFLX, [id number], CBC #### [facility] [address] [place] [address] [place] #### TEST F + T #### [facility] ,Anion gap [Moles/Vol]12.8 mmol/LNormal6.0-15.0[facility] Comment on above:Performed By: #### LIPID, A1C WTH eA, CMP, LIPASE, KHUSHBU, TSH3 wRFLX, [id number], CBC #### [facility] [address] [place] [address] #### TEST F + T #### [facility] ,AST [Catalytic activity/Vol]23 U/KCjxasz48-43Isa [facility] Comment on above:Performed By: #### LIPID, A1C WTH eA, CMP, LIPASE, KHUSHBU, TSH3 wRFLX, [id number], CBC #### [address] #### TEST F + T #### [facility] ,Bilirubin [Mass/Vol]0.6 mg/dLNormal0.3-1.0The [facility] Access Hospital Physician GroupComment on above:Performed By: #### LIPID, A1C WTH eA, CMP, LIPASE, KHUSHBU, TSH3 wRFLX, [id number], CBC #### [facility] [address] [place] [address] #### TEST F + T #### [facility] ,Calcium [Mass/Vol]9.7 mg/dLNormal8.6-10.3The [facility] Hospital Physician GroupComment on above:Performed By: #### LIPID, A1C WTH eA, CMP, LIPASE, KHUSHBU, TSH3 wRFLX, [id number], CBC #### [facility] [address] [place] [address] [place] #### TEST F + T #### [facility] ,Chloride [Moles/Vol]103 mmol/MFsvsas23-534Hnc [facility] Hospital Physician GroupComment on above:Performed By: #### LIPID, A1C WTH eA, CMP, LIPASE, KHUSHBU, TSH3 wRFLX, [id number], CBC #### [facility] [address] [place] [address] #### TEST F + T #### [facility] ,CO2 [Moles/Vol]29.2 mmol/KSgjyvy75.0-31.0The [facility] Access Hospital Physician GroupComment on above:Performed By: #### LIPID, A1C WTH eA, CMP, LIPASE, KHUSHBU, TSH3 wRFLX, [id number], CBC #### [address] #### TEST F + T #### [facility] ,Creatinine [Mass/Vol]1.05 mg/dLNormal0.70-1.30The [facility] Comment on above:Performed By: #### LIPID, A1C WTH eA, CMP, LIPASE, KHUSHBU, TSH3 wRFLX, [id number], CBC #### [address] #### TEST F + T #### [facility] ,GFR/1.73 sq M.predicted MDRD (S/P/Bld) [Vol rate/Area]mL/min/{1.73_m2}NormalThe Critical Access Hospital Physician GroupComment on above:Performed By: #### LIPID, A1C WTH eA, CMP, LIPASE, KHUSHBU, TSH3 wRFLX, [id number], CBC #### [address] #### TEST F + T #### [facility] ,Globulin (S) [Mass/Vol]2.5 g/dLNormalThe [facility] Access Hospital Physician GroupComment on above:Performed By: #### LIPID, A1C WTH eA, CMP, LIPASE, KHUSHBU, TSH3 wRFLX, [id number], CBC #### [address] #### TEST F + T #### [facility] ,Glucose [Mass/Vol]168 mg/pGEoyy09-112Fjx [facility] Physician GroupComment on above:Result Comment: Random Glucose Reference Range is dependent on time and content of last meal. Glucose of more than 200 mg/dL in a nonstressed, ambulatory subject supports the diagnosis of Diabetes Mellitus. ADA recommended reference rangePerformed By: #### LIPID, A1C WTH eA, CMP, LIPASE, KHUSHBU, TSH3 wRFLX, [id number], CBC #### [address] #### TEST F + T #### [facility] ,Potassium [Moles/Vol]5.0 mmol/LNormal3.5-5.1[facility] Comment on above:Performed By: #### LIPID, A1C WTH eA, CMP, LIPASE, KHUSHBU, TSH3 wRFLX, [id number], CBC #### [address] #### TEST F + T #### [facility] ,Protein [Mass/Vol]6.7 g/dLNormal6.4-8.9The [facility] Hospital Physician GroupComment on above:Performed By: #### LIPID, A1C WTH eA, CMP, LIPASE, KHUSHBU, TSH3 wRFLX, [id number], CBC #### [address] #### TEST F + T #### [facility] ,Sodium [Moles/Vol]140 mmol/GAnhqnl130-276Ucu [facility] Hospital Physician GroupComment on above:Performed By: #### LIPID, A1C WTH eA, CMP, LIPASE, KHUSHBU, TSH3 wRFLX, [id number], CBC #### [place] [address] [place] #### TEST F + T #### [facility] ,Urea nitrogen [Mass/Vol]17 mg/dLNormal7-25The [facility] Hospital Physician GroupComment on above:Performed By: #### LIPID, A1C WTH eA, CMP, LIPASE, KHUSHBU, TSH3 wRFLX, [id number], CBC #### [facility] [address] [place] [address] #### TEST F + T #### [facility] ,Creatinine [Mass/volume] in Serum or PlasmaOrdered By: Mejia Phillips on 56-29-7468Hpjwmgzudv [Mass/Vol]Creatinine [Mass/volume] in Serum or Plasma 0.70-1.30[facility] Medical CenterEosinophils Auto (Bld) [#/Vol]Ordered By: Mejia Phillips on 85-82-3133Zzddrxejubq (Bld) [#/Vol]Automated eosinophil count0.0-0.45[facility] Medical CenterEosinophils/100 WBC Auto (Bld) Ordered By: Mejia Phillips on 88-46-5469Zaesmadbeps/100 WBC (Bld)Automated eosinophil %.[facility] Medical CenterErythrocyte distribution width Auto (RBC) [Ratio]Ordered By: Mejia Phillips on 18-66-0378Zovkikmwcbq distribution width (RBC) [Ratio]Erythrocyte distribution width [Ratio] by Automated count12.0-14.8[facility] Medical CenterGlobulin Calc (S) [Mass/Vol]Ordered By: Mejia Phillips on 07-37-0620Rwtxoryz (S) [Mass/Vol]Serum globulin measurement by calculation (mass/volume)[facility] CenterGlucose [Mass/volume] in Serum or PlasmaOrdered By: Mejia Phillips on 50-11-3225Goiwnsa [Mass/Vol]Glucose [Mass/volume] in Serum or GwpskbVfup28-057 [facility] CenterComment on above:ADA recommended reference rangeRandom Glucose Reference Range is dependent on time and content of last meal. Glucose of more than 200 mg/dL in a nonstressed, ambulatory subject supports the diagnosisof Diabetes Mellitus.Hematocrit Auto (Bld) [Volume fraction]Ordered By: Mejia Phillips on 06-51-2620Gjkaqdlqmh (Bld) [Volume fraction]Hematocrit [Volume Fraction] of Blood by Automated count38.8-50.0 [facility] CenterHemoglobin A1c/Hemoglobin.total in BloodOrdered By: Mejia Phillips on 54-37-5702ZkS8x (Bld) [Mass fraction]Hemoglobin A1c percentageHigh4.3-5.6FTriHealth Bethesda North HospitalComment on above:Increased risk for diabetes: 5.7 - 6.4diabetes: >6.4glycemic control for adults with diabetes: <7.0Hemoglobin [Mass/volume] in BloodOrdered By: Mejia Phillips on 61-98-5204Llkdslilrp (Bld) [Mass/Vol]Hemoglobin [Mass/volume] in Blood13.0-17.0 [facility] CenterLeukocytes [#/volume] corrected for nucleated erythrocytes in Blood by Automated counOrdered By: Mejia Phillips on 05-24-2024 WBC corrected for nucl RBC Auto (Bld) [#/Vol]Leukocytes [#/volume] corrected for nucleated erythrocytes in Blood by Automated coun4.1-10.5FTriHealth Bethesda North HospitalLipaseon 81-33-0821Nefrds [Catalytic activity/Vol]66.0 U/LNormal 11.0-82.0The [facility] Hospital Physician GroupComment on above:Performed By: #### LIPID, A1C WTH eA, CMP, LIPASE, KHUSHBU, TSH3 wRFLX, [id number], CBC #### [facility] [address] #### TEST F + T #### [facility] ,Lipase [Enzymatic activity/volume] in Serum or PlasmaOrdered By: Mejia Phillips on 95-37-8543Yikqod [Catalytic activity/Vol]Lipase [Enzymatic activity/volume] in Serum or Jmtutg29.0-82.0[facility] Medical CenterLipid Panelon 59-20-0864Bftukiovxka [Mass/Vol]152 mg/aHRgeuup063-007Cpa [facility] Physician GroupComment on above:Result Comment: Chol less than 200 mg/dl low risk Chol 201-239 mg/dl borderline risk Chol 240 mg/dl and greater high riskPerformed By: #### LIPID, A1C WTH eA, CMP, LIPASE, KHUSHBU, TSH3 wRFLX, [id number], CBC #### [facility] [address] [place] [address] [place] #### TEST F + T #### [facility] ,Cholesterol in HDL [Mass/Vol]40 mg/vOQqjcnd21-99[facility] Comment on above:Result Comment: HDL CHOL ATP-III CLASSIFICATION Cardiovascular Risk HDL > or equal to 60 mg/dL LOW HDL < 40 mg/dL HIGHPerformed By: #### LIPID, A1C WTH eA, CMP, LIPASE, KHUSHBU, TSH3 wRFLX, [id number], CBC #### [address] #### TEST F + T #### [facility] ,Cholesterol.total/Cholesterol in HDL [Mass ratio]3.8 {ratio}Normal<5.0The [facility] Physician GroupComment on above:Performed By: #### LIPID, A1C WTH eA, CMP, LIPASE, KHUSHBU, TSH3 wRFLX, [id number], CBC #### [address] #### TEST F + T #### [facility] ,LDL Cholesterol,Vkxzsjgwch57 mg/dLNormal0-100[facility] Comment on above:Result Comment: LDL ATP III CLASSIFICATION LDL less than 100 mg/dL Optimal LDL 100-129 mg/dL Near or above optimal LDL 130-159 mg/dL Borderline high LDL 160-189 mg/dL High LDL greater than 189 mg/dL Very highPerformed By: #### LIPID, A1C WTH eA, CMP, LIPASE, KHUSHBU, TSH3 wRFLX, [id number], CBC #### [address] #### TEST F + T #### [facility] ,Triglyceride w/Enerfs620 mg/dLHigh0-149[facility] Physician GroupComment on above:Result Comment: TRIG ATP III CLASSIFICATION TRIG less than 150 mg/dL Normal TRIG 150-199 mg/dL Borderline high TRIG 200-500 mg/dL High TRIG greater than 500 mg/dL Very high Standard traceable to the Center for Disease Conrtrol and Prevention (CDC) test method.Performed By: #### LIPID, A1C WTH eA, CMP, LIPASE, KHUSHBU, TSH3 wRFLX, [id number], CBC #### [place] [address] [place] #### TEST F + T #### [facility] ,VLDL PCBHWAWYDIS60 mg/dLNormalThe [facility] Access Hospital Physician GroupComment on above: Performed By: #### LIPID, A1C WTH eA, CMP, LIPASE, KHUSHBU, TSH3 wRFLX, [id number], CBC #### [facility] [address] #### TEST F + T #### [facility] ,Lymphocytes Auto (Bld) [#/Vol]Ordered By: Mejia Phillips on 05-24-2024 Lymphocytes (Bld) [#/Vol]Lymphocytes [#/volume] in Blood by Automated count 1.00-4.8[facility] CenterLymphocytes/100 WBC Auto (Bld)Ordered By: Mejia Phillips on 48-37-7649Asnwftamupc/100 WBC (Bld)Lymphocytes/100 leukocytes in Blood by Automated count.[facility] HospitalH Auto (RBC) [Entitic mass]Ordered By: Mejia Phillips on 06-74-0625FUW (RBC) [Entitic mass]MCH [Entitic mass] by Automated count27.5-35.2FTriHealth Bethesda North HospitalMCHC Auto (RBC) [Mass/Vol]Ordered By: Mejia Phillips on 87-15-6000VSNA (RBC) [Mass/Vol]MCHC [Mass/volume] by Automated count32.5-35.6FTriHealth Bethesda North HospitalMCV Auto (RBC) [Entitic vol]Ordered By: Mejia Phillips on 52-06-3837CGQ (RBC) [Entitic vol]MCV [Entitic volume] by Automated count83.5-101 [facility] CenterMonocytes Auto (Bld) [#/Vol]Ordered By: Mejia Phillips on 74-74-0830Cexvvsbon (Bld) [#/Vol]Automated blood monocyte count0.0-0.8 [facility] CenterMonocytes/100 WBC Auto (Bld)Ordered By: Mejia Phillips on 60-17-5667Wgewajcuj/100 WBC (Bld)Automated monocyte %.[facility] Medical CenterNeutrophils Auto (Bld) [#/Vol]Ordered By: Mejia Phillips on 71-48-5818Zlgtdoagqms (Bld) [#/Vol]Neutrophils [#/volume] in Blood by Automated count1.8-7.7FTriHealth Bethesda North HospitalNeutrophils/100 WBC Auto (Bld)Ordered By: Mejia Phillips on 96-21-3632Aceurbulrzy/100 WBC (Bld)Automated neutrophil %.[facility] CenterNo Panel InformationOrdered By: Mejia Phillips on 69-98-1873Vdikqrdqa GFR (CKD-EPI)> 60.0 mL/MinLakehealth Tripoint Medical CenterPharmacy Creatinine Clearance (ChemN/AFTriHealth Bethesda North HospitalNucleated erythrocytes [Presence] in Blood by Automated count Ordered By: Mejia Phillips on 47-43-6647Hzypavfnr RBC Auto Ql (Bld)Nucleated erythrocytes [Presence] in Blood by Automated count0-0.5FTriHealth Bethesda North HospitalPlatelet mean volume Auto (Bld) [Entitic vol]Ordered By: Mejia Phillips on 93-60-8027Imuhlegf mean volume (Bld) [Entitic vol]Platelet mean volume [Entitic volume] in Blood by Automated count6.6-10.1FTriHealth Bethesda North HospitalPlatelets Auto (Bld) [#/Vol]Ordered By: Mejia Phillips on 05-24-2024 Platelets (Bld) [#/Vol]Platelets [#/volume] in Blood by Automated -879 [facility] CenterPotassium [Moles/volume] in Serum or Plasma Ordered By: Mejia Phillips on 78-90-0562Qqnljsort [Moles/Vol]Potassium [Moles/volume] in Serum or Plasma3.5-5.1FTriHealth Bethesda North HospitalProtein [Mass/volume] in Serum or PlasmaOrdered By: Mejia Phillips on 25-52-8419Qskblyy [Mass/Vol]Protein [Mass/volume] in Serum or Plasma6.4-8.9[facility] CenterRBC Auto (Bld) [#/Vol]Ordered By: Mejia Phillips on 14-85-4379XPJ (Bld) [#/Vol]Erythrocytes [#/volume] in Blood by Automated count3.90-5.[address] [facility] [facility] Hospitalerum or plasma albumin/globulin mass ratio Ordered By: Mejia Phillips on 05-76-4838Vinbvro/Globulin [Mass ratio]Serum or plasma albumin/globulin mass ratioSt. Anthony's Hospitalerum or plasma anion gap determinationOrdered By: Mejia Phillips on 80-52-2149Nhziu gap [Moles/Vol]Serum or plasma anion gap determination6.0-15.0St. Anthony's Hospitalerum or plasma free testosterone measurement (mass/volume)Ordered By: Mejia Phillips on 24-46-4844Ivzlocvedold Free [Mass/Vol]Free testosterone measurement by LC-MS/MS6.6-18.1FTriHealth Bethesda North HospitalComment on above:Performed at: - [facility] [id number] Director: Sravan Palacios PhD, Phone: [phone] at: - [facility] [id number] Director: Mike Kaba MD, Phone: [phone] or plasma total cholesterol/high density lipoprotein (HDL) cholesterol mass ratOrdered By: Mejia Phillpis on 05-24-2024 Cholesterol.total/Cholesterol in HDL [Mass ratio]Serum or plasma total cholesterol/high density lipoprotein (HDL) cholesterol mass rat<5.0St. Anthony's Hospitalodium [Moles/volume] in Serum or PlasmaOrdered By: Mejia Phillips on 93-14-5938Duzswb [Moles/Vol]Sodium [Moles/volume] in Serum or Mehsag294-414QgnashvylLakehealth Tripoint Medical CenterTestosterone Free and TotalOrdered By: Mejia Phillips on 71-28-5344Fyiklksnwyiw [Mass/Vol]356 ng/tVHgcckv126-319 [facility] CenterComment on above:Adult male reference interval is based on a population ofhealthy nonobese males (BMI <30) between 19 and 39 yearsold. Svetlana, et.al. EM 2017,102;3910-3454. PMID:[id number].Result Comment: Adult male reference interval is based on a population of healthy nonobese males (BMI <30) between 19 and 39 years old. Svetlana, et.al. JCEM 2017,102;1912-5796. PMID: [id number].Performed By: #### LIPID, A1C WTH eA, CMP, LIPASE, KHUSHBU, TSH3 wRFLX, [id number], CBC ####[facility] [address]#### TEST F + T ####[facility] ,Testosterone Free and Totalon 65-61-2496Hviljbqokntx,Free9.4 pg/mLNormal6.6-18.1[facility] Comment on above:Result Comment: Performed at: - [facility] [place] [address] [place], [place] [id number] Manager Operational: Sravan Palacios PhD, Phone: [phone] Performed at: - [facility] [id number] Manager Operational: Mike Kaba MD, Phone: [phone] PERFORMED BY: [place] [address] PATHOLOGIST SKILLED HELPER SHANDA JUSTIN M.D.Performed By: #### LIPID, A1C WTH eA, CMP, LIPASE, KHUSHBU, TSH3 wRFLX, [id number], CBC ####[facility] [address]#### TEST F + T ####[facility] ,Thyroid Stim Hormone w/Rflxon 84-14-6740Bfnmdrf Stim Hormone w/Rflx1.29 u[iU]/mLNormal 0.45-5.33The [facility] Physician GroupComment on above:Performed By: #### LIPID, A1C WTH eA, CMP, LIPASE, KHUSHBU, TSH3 wRFLX, [id number], CBC #### [facility] [address] [place] [address] #### TEST F + T #### [facility] ,Thyrotropin [Units/volume] in Serum or PlasmaOrdered By: Mejia Phillips on 40-05-3222ZBA QnThyrotropin [Units/volume] in Serum or Plasma0.45-5.33[facility] CenterTriglyceride [Mass/volume] in Serum or PlasmaOrdered By: Mejia Phillips on 01-05-4569Msykgosclirr [Mass/Vol]Triglyceride [Mass/volume] in Serum or PlasmaHigh0-149[facility] Medical CenterComment on above:TRIG ATP III CLASSIFICATIONTRIG less than 150 mg/dL NormalTRIG 150-199 mg/dL Borderline highTRIG 200-500 mg/dL High TRIG greater than 500 mg/dL Very highStandard traceable to the Center for Disease Conrtrol and Prevention (CDC) test method.Urea nitrogen [Mass/volume] in Serum or PlasmaOrdered By: Mejia Phillips on 16-39-2110Ibqf nitrogen [Mass/Vol]Urea nitrogen [Mass/volume] in Serum or Plasma7-25[facility] Medical CenterVitamin D 25 Hydroxy Totalon 04-58-3281Lxsalmf D 25 Hydroxy Total39.7 ng/lDXcptdh22-973Dpg [facility] Physician GroupComment on above:Result Comment: VITAMIN D STATUS 25(OH)VITAMIN D RANGE (ng/mL) Deficient <20 Insufficient 20 to <30 Sufficient 30 to 100 Reference: Perri Jean-Baptiste, Stormy FLETCHER, et al. Evaluation,treatment, and prevention of vitamin D deficiency; an Endocrine Society clinical practice guideline. JCEM. 2010; 96(7):191-. PERFORMED BY: [facility] [address] [place] [address] PATHOLOGIST SKILLED HELPER SHANDA JUSTIN M.D.Performed By: #### LIPID, A1C WTH eA, CMP, LIPASE, KHUSHBU, TSH3 wRFLX, [id number], CBC ####[facility] [id number]#### TEST F + T ####[facility] ,Vitamin D+Metabolites [Mass/volume] in Serum or PlasmaOrdered By: Mejia Phillips on 18-50-5699Rayvysy D+Metabolites [Mass/Vol]Vitamin D+Metabolites [Mass/volume] in Serum or Lyszjo79-667AxqzpmyodLakehealth Tripoint Medical CenterComment on above:VITAMIN D STATUS 25(OH)VITAMIN D RANGE (ng/mL) Deficient <20 Insufficient 20 to <24Mpcjwjdcxm11 to 100Reference: Perri Jean-Baptiste, Stormy FLETCHER, et al. Evaluation,treatment, and prevention of vitamin D deficiency; an Endocrine Society clinical practice guideline. JCEM. 2010; 96(7):191-.WBC Auto (Bld) [#/Vol]Ordered By: Mejia Phillips on 46-87-4942IHI (Bld) [#/Vol]Leukocytes [#/volume] in Blood by Automated count4.1-10.5FTriHealth Bethesda North Hospital X-ray reportOrdered By: Burton Cain on 11-37-9611Pkins reportCLEVELAND CLIN[facility] [place] [address] XRay Report Signed Patient: Sahra Tse MR#: [id number] : 1960 Acct:[id number] Age/Sex: 63 / M ADM Date: 5 Loc: XD Room: Type: REG CLI Attending Dr: Mejia Phillips DO Copies to: Mejia Phillips DO~ Ordering Provider: Mejia Phillips DO Date of Service: 05/24/24 XR/XR shoulder BI min 2V: M25.511 - Pain in right shoulder 3 views right shoulder plain film HISTORY: Bilateral shoulder pain for 2 months. Fell. COMPARISON: None ACUTE FINDINGS: No acute displaced fracture. A small bony density in the left acromioclavicular joint. Likely chronic finding. DEGENERATIVE CHANGE: Mild degenerative changes. SOFT TISSUE FINDINGS: Unremarkable JOINT EFFUSION: None POSTOP CHANGES: None BONY MINERALIZATION: Adequate XR/XR shoulder BI min 2V IMPRESSION: No acute findings. Impression dictated by: Burton Cain M.D.05/24/2024 12:23 PM Dictation Location: [place] [address] Transcribed By: [facility] 05/24/24 1223 Dictated By: Burton Cain DO 05/24/24 1218 Signed By: 05/24/24 1223 [facility] CenterXR shoulder BI min 2Von 17-26-9703SX shoulder BI min 2VCLEVEL[facility] Main [place] [id number] XRay Report Signed Patient: Sahra Tse MR#: [id number] 2 : 1960 Acct:[id number] Age/Sex: 63 / M ADM Date: 05/24/24 Loc: XD Room: Type: REG CLI Attending Dr: Mejia Phillips DO Copies to: Mejia Phillips DO Ordering Provider: Mejia Phillips DO Date of Service: 05/24/24 XR/XR shoulder BI min 2V: M25.511 - Pain in right shoulder 3 views right shoulder plain film HISTORY: Bilateral shoulder pain for 2 months. Fell. COMPARISON: None ACUTE FINDINGS: No acute displaced fracture. A small bony density in the left acromioclavicular joint. Likely chronic finding. DEGENERATIVE CHANGE: Mild degenerative changes. SOFT TISSUE FINDINGS: Unremarkable JOINT EFFUSION: None POSTOP CHANGES: None BONY MINERALIZATION: Adequate XR/XR shoulder BI min 2V IMPRESSION: No acute findings. Impression dictated by: Burton Cain M.D.05/24/2024 12:23 PM Dictation Location: [place] [address] Transcribed By: [facility] 05/24/24 1223 Dictated By: Burton Cain DO 05/24/24 1218 Signed By: 05/24/24 1223NoNorth Carolina Specialty Hospital Physician GroupGlucose Glucometer (BldC) [Mass/Vol]Ordered By: Valery Helm on 96-26-4694Bwpgsdj [Mass/Vol]Capillary blood glucose measurement by glucometer (mass/volume)[facility] Comment on above:Random Glucose Reference Range is dependent on time and content of last meal. Glucose of more than 200 mg/dL in a nonstressed, ambulatory subject supports the diagnosis of Diabetes Mellitus.Glucose Poct Glucometerson 23-28-3330Fgtghqj4Tcb1: Cleaned MeterNoNorth Carolina Specialty Hospital Physician GroupComment on above:Result Comment: PERFORMED BY: [facility] [address] [place] [address] PATHOLOGIST SKILLED HELPER SHANDA JUSTIN M.D.Performed By: #### GLULS #### Point of Care testing ,Glucose [Mass/Vol]178 mg/dLSt. Joseph's Hospital Physician GroupComment on above: Result Comment: Random Glucose Reference Range is dependent on time and content of last meal. Glucose of more than 200 mg/dL in a nonstressed, ambulatory subject supports the diagnosis of Diabetes Mellitus.Performed By: #### GLULS #### Point of Care testing ,Herbert 03-11-2024 Specimen: [id number] Received: 03/11/24 Status: KEESHA Nascimento Num: [id number] Spec Type: Surgical Subm Dr: Valery Helm MD Tissues: A Colon Biopsy (ASCENDING COLON POLYP) Procedures: GABBY/Thalia King/Adithya L4 Age/ Patient Sex Location Account Attending Physician Sahra Tse/M [id number] Valery Helm MD SPEC NUM: [id number] RECD: 03/11/24 STATUS: KEESHA NASCIMENTO NUM: [id number] NAYAN: 03/11/24 [facility] [address]: Valery Helm MD ENTERED: 03/11/[address] [facility] [address]: SPEC TYPE: Surgical DEPT: S REC BY: [id number] ORDERED: HE/2, Gross/Micro L4 ORDERED: HE/2, Gross/Micro L4 Pathological Diagnosis Colon, ascending, polypectomy: - Fragments of tubular adenoma. Clinical Information Screening, colon polyp. Gross Description Received in formalin labeled with the patient's name, date of and ascending colon are three knight mucosal tissue fragments ranging from 0.2 to 0.4 cm in greatest dimension. The specimen is entirely submitted in A1. TW Microscopic Description Microscopic examination is performed. CPT Codes 19874 Specimen: [id number] Received: 03/11/24 Status: KEESHA Carreonkylee Num: [id number] Spec Type: Surgical Subm Dr: Valery Helm MD Tissues: A Colon Biopsy (ASCENDING COLON POLYP) Procedures: HE/2, Gross/Micro L4 Patient: Sahra Tse [id number] (Continued) Signed (signature on file) Ru Lakhani MD 03/12/24 1223Normal [facility] Physician [facility] CenterNo Panel InformationOrdered By: Valery Helm on 64-67-0462Ygqxlhu Glucose CommentGlu2: cleaned meterLakehealth Tripoint Medical CenterGlucose Glucometer (BldC) [Mass/Vol]Ordered By: Valery Helm on 01-19-2024 Glucose [Mass/Vol]Capillary blood glucose measurement by glucometer (mass/volume)[facility] CenterComment on above:Random Glucose Reference Range is dependent on time and content of last meal. Glucose of more than 200 mg/dL in a nonstressed, ambulatory subject supports the diagnosis of Diabetes Mellitus.Glucose Poct Glucometerson 86-10-6222Xayjuqf [Mass/Vol]228 mg/dLNoNorth Carolina Specialty Hospital Physician [facility] Medical CenterComment on above:Result Comment: Random Glucose Reference Range is dependent on time and content of last meal. Glucose of more than 200 mg/dL in a nonstressed, ambulatory subject supports the diagnosis of Diabetes Mellitus. PERFORMED BY: [facility] [address] [place] [address] PATHOLOGIST SKILLED HELPER SHANDA JUSTIN M.D.Performed By: #### GLULS ####Point of Care testing, [facility] 60-95-3594TSWEEetqul TextNormalCTrinity Health SystemAlanine aminotransferase [Enzymatic activity/volume] in Serum or PlasmaOrdered By: Mejia Phillips on 40-67-2495AGV [Catalytic activity/Vol]27 U/L7-52[facility] Medical CenterAlbumin [Mass/volume] in Serum or Plasma by Bromocresol green (BCG) dye binding methoOrdered By: Mejia Phillips on 73-54-6077Ynzopyq BCG dye [Mass/Vol]4.3 g/dL3.5-5.7FTriHealth Bethesda North HospitalAlkaline phosphatase [Enzymatic activity/volume] in Serum or PlasmaOrdered By: Mejia Phillips on 76-18-9389XVD [Catalytic activity/Vol]90 U/R20-309MexlhdurwLakehealth Tripoint Medical CenterAspartate aminotransferase [Enzymatic activity/volume] in Serum or PlasmaOrdered By: Mejia Phillips on 65-12-4079ISC [Catalytic activity/Vol]20 U/L 13-39[facility] Medical CenterBilirubin.total [Mass/volume] in Serum or PlasmaOrdered By: Mjeia Phillips on 16-43-7121Gzsgkomsn [Mass/Vol]0.4 mg/dL 0.3-1.0[facility] Medical CenterCalcium [Mass/volume] in Serum or Plasma Ordered By: Mejia Phillips on 65-57-0790Jvuznzq [Mass/Vol]9.4 mg/dL8.6-10.3 [facility] CenterCarbon dioxide, total [Moles/volume] in Serum or PlasmaOrdered By: Mejia Phillips on 82-74-2962IS0 [Moles/Vol]28.7 mmol/L 21.0-31.0[facility] CenterChloride [Moles/volume] in Serum or PlasmaOrdered By: Mejia Phillips on 93-35-2157Hsclymot [Moles/Vol]104 mmol/L 98-107L[facility] Medical CenterCholesterol [Mass/volume] in Serum or PlasmaOrdered By: Mejia Phillips on 66-25-8285Pkzowzjfaqk [Mass/Vol]154 mg/dL 140-200[facility] Medical CenterComment on above:Chol less than 200 mg/dl low riskChol 201-239 mg/dl borderline riskChol 240 mg/dl and greater high riskCholesterol in LDL Calc [Mass/Vol]Ordered By: Mejia Phillips on 07-08-2023 Cholesterol in LDL [Mass/Vol]77 mg/dL0-100[facility] Comment on above:LDL ATP III CLASSIFICATIONLDL less than 100 mg/dL OptimalLDL 100-129 mg/dL Near or above mihyqbcUKU774-121 mg/dL Borderline highLDL 160-189 mg/dL HighLDL greater than 189 mg/dL Very highCholesterol in VLDL Calc [Mass/Vol]Ordered By: Mejia Phillips on 49-97-7405Focpxnhjpik in VLDL [Mass/Vol] 38 mg/dLLakehealth Tripoint Medical CenterCreatinine [Mass/volume] in Serum or PlasmaOrdered By: Mejia Phillips on 67-80-3659Xfllglkghc [Mass/Vol]1.15 mg/dL 0.70-1.30[facility] CenterErythrocyte distribution width Auto (RBC) [Ratio]Ordered By: Mejia Phillips on 17-94-4538Pusxrpstdpk distribution width (RBC) [Ratio]12.8 %12.0-14.8[facility] Medical CenterGlobulin Calc (S) [Mass/Vol]Ordered By: Mejia Phillips on 89-01-6030Emhenego (S) [Mass/Vol]2.0 g/dLLakehealth Tripoint Medical CenterGlucose [Mass/volume] in Serum or Plasma Ordered By: Mejia Phillips on 24-11-1479Vmhwgbw [Mass/Vol]128 mg/aHTfpx27-549 [facility] CenterComment on above:ADA recommended reference rangeRandom Glucose Reference Range is dependent on time and content of last meal. Glucose of more than 200 mg/dL in a nonstressed, ambulatory subject supports the diagnosisof Diabetes Mellitus.Hematocrit Auto (Bld) [Volume fraction]Ordered By: Mejia Phillips on 19-73-4356Njpfccuakx (Bld) [Volume fraction]43.6 %38.8-50.0[facility] Medical CenterHemoglobin [Mass/volume] in BloodOrdered By: Mejia Phillips on 84-98-5293Kanquzyjpg (Bld) [Mass/Vol]14.9 g/dL13.0-17.0[facility] CenterLeukocytes [#/volume] corrected for nucleated erythrocytes in Blood by Automated coun Ordered By: Mejia Phillips on 76-43-8612SAM corrected for nucl RBC Auto (Bld) [#/Vol]9.1 10*3/uL4.1-10.5FTriHealth Bethesda North HospitalMCH Auto (RBC) [Entitic mass]Ordered By: Mejia Phillips on 63-09-8953FSZ (RBC) [Entitic mass] 31.8 pg27.5-35.2FTriHealth Bethesda North HospitalMCHC Auto (RBC) [Mass/Vol] Ordered By: Mejia Phillips on 60-08-5494QBXR (RBC) [Mass/Vol]34.2 g/dL32.5-35.6 [facility] CenterMCV Auto (RBC) [Entitic vol]Ordered By: Mejia Phillips on 44-13-2820ONS (RBC) [Entitic vol]93.1 fL83.5-101[facility] CenterNo Panel InformationOrdered By: Mejia Phillips on 07-08-2023 Estimated GFR (CKD-EPI)> 60.0 mL/MinLakehealth Tripoint Medical CenterPharmacy Creatinine Clearance (ChemN/[facility] Memorial HospitalPlatelet mean volume Auto (Bld) [Entitic vol]Ordered By: Mejia Phillips on 50-46-3242Fangpwim mean volume (Bld) [Entitic vol]8.6 fL6.6-10.1FTriHealth Bethesda North Hospital Platelets Auto (Bld) [#/Vol]Ordered By: Mejia Phillips on 54-92-8494Cywbqdwnp (Bld) [#/Vol]230 10*3/lE023-157HjxgdhkimLakehealth Tripoint Medical CenterPotassium [Moles/volume] in Serum or PlasmaOrdered By: Mejia Phillips on 07-08-2023 Potassium [Moles/Vol]4.5 mmol/L3.5-5.1FTriHealth Bethesda North HospitalProstate specific Ag [Mass/volume] in Serum or PlasmaOrdered By: Mejia Phillips on 01-14-3466Wuufgiva specific Ag [Mass/Vol]0.470 ng/mL0.000-4.000L[facility] CenterComment on above:Serial tumor marker results determined by assays using different manufacturers or methods may not be comparable.[facility] dry ice maker and method:Exposed Vocals DXI, CHEMILUMINESCENT IMMUNOASSAY.Protein [Mass/volume] in Serum or PlasmaOrdered By: Mejia Phillips on 84-01-3512Cmdunrg [Mass/Vol]6.3 g/dLLow6.4-8.9L[facility] Medical CenterRBC Auto (Bld) [#/Vol]Ordered By: Mejia Phillips on 01-67-1682BRJ (Bld) [#/Vol]4.68 10*6/uL3.90-5.60St. Anthony's Hospitalerum or plasma albumin/globulin mass ratioOrdered By: Mejia Phillips on 23-27-5039Assvkgg/Globulin [Mass ratio]2.2 {ratio}St. Anthony's Hospitalerum or plasma anion gap determinationOrdered By: Mejia Phillips on 65-68-2766Xxoth gap [Moles/Vol]10.8 mmol/L6.0-15.0St. [facility]'s Hospitalerum or plasma high density lipoprotein (HDL) cholesterol measurement Ordered By: Mejia Phillips on 08-13-4269Bcagkajgewl in HDL [Mass/Vol]38 mg/dL 23-92L[facility] Medical CenterComment on above:HDL CHOL ATP-III CLASSIFICATION Cardiovascular RiskHDL > or equal to 60 mg/dL LOWHDL < 40 mg/dL HIGHSerum or plasma total cholesterol/high density lipoprotein (HDL) cholesterol mass ratOrdered By: Mejia Phillips on 29-21-4792Fcruaaoihqn.total/Cholesterol in HDL [Mass ratio]4.1 {ratio}<5.0St. Anthony's Hospitalodium [Moles/volume] in Serum or PlasmaOrdered By: Mejia Phillips on 27-71-2606Hlvqze [Moles/Vol]139 mmol/F737-618BfqhksmwcLakehealth Tripoint Medical CenterTriglyceride [Mass/volume] in Serum or PlasmaOrdered By: Mejia Phillips on 07-08-2023 Triglyceride [Mass/Vol]194 mg/dLHigh0-149[facility] Comment on above:TRIG ATP III CLASSIFICATIONTRIG less than 150 mg/dL NormalTRIG 150-199 mg/dL Borderline highTRIG 200-500 mg/dL High TRIG greater than 500 mg/dL Very highStandard traceable to the Center for Disease Conrtrol and Prevention (CDC) test method.Urea nitrogen [Mass/volume] in Serum or PlasmaOrdered By: Mejia Phillips on 35-18-3342Iinf nitrogen [Mass/Vol]17 mg/dL7-25[facility] Medical CenterVitamin D+Metabolites [Mass/volume] in Serum or Plasma Ordered By: Mejia Phillips on 51-86-0002Dhldcxm D+Metabolites [Mass/Vol]65.8 ng/nH09-262DosorvapkLakehealth Tripoint Medical CenterComment on above:VITAMIN D STATUS 25(OH)VITAMIN D RANGE (ng/mL) Deficient <20 Insufficient 20 to <80Qotpddwbhc08 to 100Reference: Estrada MF,Perri SOTO, Stormy FLETCHER, et al. Evaluation,treatment, and prevention of vitamin D deficiency; an Endocrine Society clinical practice guideline. JCEM. 2010; 96(7):1911-30.HbA1c HPLC (Bld) [Mass fraction]on 43-78-8553RkO7s (Bld) [Mass fraction]8.2 %[facility] Medical CenterGlucose Glucometer (BldC) [Mass/Vol]Ordered By: Valery Helm on 66-45-3655Dihjakq [Mass/Vol]226 mg/dLLakehealth Tripoint Medical Center Comment on above:Random Glucose Reference Range is dependent on time and content of last meal. Glucose of more than 200 mg/dL in a nonstressed, ambulatory subject supports the diagnosis of Diabetes Mellitus.A1C HEMOGLOBINon 07-28-2022 HbA1c (Bld) [Mass fraction]7.3 %ReferMe [facility] SIPX Other HbA1c (Bld) [Mass fraction]on 20-31-4887W6P HEMOGLOBIN ReferMe [facility] SIPX Other activated partial thromboplastin time (aPTT) in platelet poor plasma by coagulation aOrdered By: Jasbir Whitaker on 83-49-8399yVIA Coag (PPP) [Time]28.5 s25.1-36.5FTriHealth Bethesda North HospitalAlanine aminotransferase [Enzymatic activity/volume] in Serum or PlasmaOrdered By: Jasbir Whitaker on 38-18-3494JPN [Catalytic activity/Vol]33 U/L7-52[facility] CenterAlbumin [Mass/volume] in Serum or Plasma by Bromocresol green (BCG) dye binding methoOrdered By: Jasbir Whitaker on 34-93-0546Wtfpryh BCG dye [Mass/Vol]4.2 g/dL3.5-5.7FTriHealth Bethesda North HospitalAlkaline phosphatase [Enzymatic activity/volume] in Serum or PlasmaOrdered By: Jasbir Whitaker on 78-85-7511TST [Catalytic activity/Vol]80 U/N69-159DoivmvpdpLakehealth Tripoint Medical CenterAspartate aminotransferase [Enzymatic activity/volume] in Serum or PlasmaOrdered By: Jasbir Whitaker on 97-73-1413NBR [Catalytic activity/Vol]24 U/L 13-39[facility] CenterAutomated epithelial cells count in urine sediment (number/area)Ordered By: Jasbir Whitaker on 27-91-8070Dtdempgkxv cells Auto (Urine sed) [#/Area]None seen [HPF]0-2FTriHealth Bethes[facility] Hospital Automated erythrocytes count in urine sediment (number/area)Ordered By: Jasbir Whitaker on 07-68-3203FIA Auto (Urine sed) [#/Area]Innumerable [HPF]0-4FTriHealth Bethesda North HospitalAutomated leukocytes count in urine sediment (number/area)Ordered By: Jasbir Whitaker on 99-47-7805EAE Auto (Urine sed) [#/Area] 1-2 [HPF]0-4FTriHealth Bethesda North HospitalBasophils Auto (Bld) [#/Vol]Ordered By: Jasbir Whitaker on 46-55-9636Bnkxqyvlb (Bld) [#/Vol]0.1 10*3/uL0.0-0.2 [facility] CenterBasophils/100 WBC Auto (Bld)Ordered By: Jasbir Whitaker on 85-84-4297Nreuteguj/100 WBC (Bld)1.0 %.[facility] CenterBilirubin Auto test strip Ql (U)Ordered By: Jasbir Whitaker on 05-09-2022 Bilirubin Ql (U)1+NegativeLakehealth Tripoint Medical CenterBilirubin.total [Mass/volume] in Serum or PlasmaOrdered By: Jasbir Whitaker on 10-18-1816Rpxvxjgkm [Mass/Vol]0.4 mg/dL0.3-1.0[facility] CenterCalcium [Mass/volume] in Serum or PlasmaOrdered By: Jasbir Whitaker on 48-54-2446Ffgrwea [Mass/Vol]9.3 mg/dL8.6-10.3FTriHealth Bethesda North HospitalCarbon dioxide, total [Moles/volume] in Serum or PlasmaOrdered By: Jasbir Whitaker on 07-04-9980HW1 [Moles/Vol]27.3 mmol/L21.0-31.0[facility] CenterChloride [Moles/volume] in Serum or PlasmaOrdered By: Jasbir Whitaker on 77-35-1678Amodjmjc [Moles/Vol]104 mmol/D97-564YplzhjdywLakehealth Tripoint Medical CenterCreatinine [Mass/volume] in Serum or PlasmaOrdered By: Jasbir Whitaker on 62-74-1577Vqjgncrtdb [Mass/Vol]0.98 mg/dL0.70-1.30[facility] CenterEosinophils Auto (Bld) [#/Vol]Ordered By: Jasbir Whitaker on 67-59-4561Fukshuldryp (Bld) [#/Vol]0.1 10*3/uL0.0-0.45[facility] CenterEosinophils/100 WBC Auto (Bld) Ordered By: Jasbir Whitaker on 07-92-0534Oegcpivzizp/100 WBC (Bld)1.1 %.[facility] CenterErythrocyte distribution width Auto (RBC) [Ratio]Ordered By: Jasbir Whitaker on 05-68-7273Vtavplyljoc distribution width (RBC) [Ratio]13.0 % 12.0-14.8[facility] CenterGlobulin Calc (S) [Mass/Vol]Ordered By: Jasbir Whitaker on 54-86-0111Axklezef (S) [Mass/Vol]1.7 g/dLLakehealth Tripoint Medical CenterGlucose [Mass/volume] in Serum or PlasmaOrdered By: Jasbir Whitaker 06-49-8816Dtyfrrx [Mass/Vol]148 mg/fJ34-244RcjphcgfiLakehealth Tripoint Medical Center Comment on above:ADA recommended reference rangeRandom Glucose Reference Range is dependent on time and content of last meal. Glucose of more than 200 mg/dL in a nonstressed, ambulatory subject supports the diagnosisof Diabetes Mellitus. Hematocrit Auto (Bld) [Volume fraction]Ordered By: Jasbir Whitaker on 05-09-2022 Hematocrit (Bld) [Volume fraction]46.1 %38.8-50.0[facility] CenterHemoglobin [Mass/volume] in BloodOrdered By: Jasbir Whitaker on 05-09-2022 Hemoglobin (Bld) [Mass/Vol]15.5 g/dL13.0-17.0[facility] Ketones Auto test strip (U) [Mass/Vol]Ordered By: Jasbir Whitaker on 05-09-2022 Ketones (U) [Mass/Vol]TraceNegativeLakehealth Tripoint Medical CenterLaboratory - CoagulationOrdered By: Jasbir Whitaker on 32-74-6943LN Coag (PPP) [Time]11.3 s 9.0-12.9[facility] CenterLeukocytes [#/volume] corrected for nucleated erythrocytes in Blood by Automated counOrdered By: Jasbir Whitaker on 62-47-1277OTM corrected for nucl RBC Auto (Bld) [#/Vol]12.1 10*3/uL4.1-10.5 [facility] CenterLymphocytes Auto (Bld) [#/Vol]Ordered By: Jasbir Whitaker on 99-13-3117Lejipyiioik (Bld) [#/Vol]4.0 10*3/uL1.00-4.8[facility] CenterLymphocytes/100 WBC Auto (Bld)Ordered By: Jasbir Whitaker on 19-95-6906Sazkskrynmv/100 WBC (Bld)32.8 %.[facility] HospitalH Auto (RBC) [Entitic mass]Ordered By: Jasbir Whitaker on 15-75-6349BPM (RBC) [Entitic mass]30.9 pg27.5-35.2FTriHealth Bethesda North HospitalMCHC Auto (RBC) [Mass/Vol]Ordered By: Jasbir Whitaker on 78-82-7307MZFR (RBC) [Mass/Vol]33.6 g/dL 32.5-35.6FTriHealth Bethesda North HospitalMCV Auto (RBC) [Entitic vol]Ordered By: Jasbir Whitaker on 99-33-9737QNE (RBC) [Entitic vol]92.1 fL83.5-101[facility] CenterMonocyte distribution width [Entitic volume] in Blood by AutomatedOrdered By: Jasbir Whitaker on 22-02-8021Ygareptz distribution width Auto (Bld) [Entitic vol]19.53 %0.00-20.00[facility] CenterMonocytes Auto (Bld) [#/Vol]Ordered By: Jasbir Whitaker on 54-60-0007Dshgwrtyj (Bld) [#/Vol] 1.0 10*3/uL0.0-0.8[facility] CenterMonocytes/100 WBC Auto (Bld) Ordered By: Jasbir Whitaker on 14-68-5638Opjqfuziw/100 WBC (Bld)8.2 %.[facility] CenterNeutrophils Auto (Bld) [#/Vol]Ordered By: Jasbir Whitaker on 54-15-0796Qduzrvghbvx (Bld) [#/Vol]6.9 10*3/uL1.8-7.7FTriHealth Bethesda North HospitalNeutrophils/100 WBC Auto (Bld)Ordered By: Jasbir Whitaker on 05-09-2022 Neutrophils/100 WBC (Bld)56.9 %.[facility] CenterNo Panel InformationOrdered By: Jasbir Whitaker on 79-80-7939Yvkoetzbo GFR (CKD-EPI)> 60.0 mL/MinLakehealth Tripoint Medical CenterPharmacy Creatinine Clearance (Chem97.98 [facility] CenterNucleated erythrocytes [Presence] in Blood by Automated countOrdered By: Jasbir Whitaker on 38-81-5057Yuipofxnh RBC Auto Ql (Bld) 0.1 /100{WBC}0-0.5FTriHealth Bethesda North HospitalPlatelet mean volume Auto (Bld) [Entitic vol]Ordered By: Jasbir Whitaker on 18-17-5940Bhzvmhvo mean volume (Bld) [Entitic vol]7.9 fL6.6-10.1FTriHealth Bethesda North HospitalPlatelet poor plasma international normalized ratio (INR) by coagulation assay (relatOrdered By: Jasbir Whitaker on 76-23-9800TUG Coag (PPP) [Relative time]1.0 {INR}[facility] CenterComment on above:INR Therapeutic Range A) Pre- and Peroperative OAT started two weeks before surgery. NOT HIP SURGERY: 1.5 - 2.5 HIP SURGERY: 2 - 3B) Primary and secondary prevention of venous THROMBOSIS: 2 - 3C) Active venous thrombosis, pulmonary embolismand prevention of recurrent venous thrombosis: 2 - 3D) Prevention of arterial thromboembolismincluding patients with mechanical heart valves: 3 - 4.5Platelets Auto (Bld) [#/Vol] Ordered By: Jasbir Whitaker on 96-13-9619Dvigjjueg (Bld) [#/Vol]239 10*3/qH362-686 [facility] CenterPotassium [Moles/volume] in Serum or Plasma Ordered By: Jasbir Whitaker on 51-44-9531Eizssnzzn [Moles/Vol]4.4 mmol/L3.5-5.1 [facility] CenterProtein Auto test strip (U) [Mass/Vol]Ordered By: Jasbir Whitaker on 14-65-3064Evrfrei (U) [Mass/Vol]30 mg/dLNegativeLakehealth Tripoint Medical CenterProtein [Mass/volume] in Serum or PlasmaOrdered By: Jasbir Whitaker on 20-59-1958Texojaf [Mass/Vol]5.9 g/dL6.4-8.9[facility] CenterRBC Auto (Bld) [#/Vol]Ordered By: Jasbir Whitaker on 87-37-7157OGJ (Bld) [#/Vol]5.01 10*6/uL3.90-5.60[facility] Hospitalerum or plasma albumin/globulin mass ratioOrdered By: Jasbir Whitaker on 05-09-2022 Albumin/Globulin [Mass ratio]2.5 {ratio}[facility]'s Hospitalerum or plasma anion gap determinationOrdered By: Jasbir Whitaker on 14-00-2691Dirka gap [Moles/Vol]12.1 mmol/L6.0-15.0[facility] Hospitalodium [Moles/volume] in Serum or PlasmaOrdered By: Jasbir Whitaker on 26-76-7376Elmqna [Moles/Vol]139 mmol/T720-828ZjbrwahjlLakehealth Tripoint Medical CenterUrea nitrogen [Mass/volume] in Serum or PlasmaOrdered By: Jasbir Whitaker on 81-86-1483Ehff nitrogen [Mass/Vol]11 mg/dL7-25[facility] CenterUrine appearance Ordered By: Jasbir Whitaker on 72-71-6867Txmnqnnksk (U)CloudyClearFTriHealth Bethesda North HospitalUrine bacteria detection by automated methodOrdered By: Jasbir Whitaker on 85-56-7777Pcijcfmc Auto Ql (U)RareNone SeenLakehealth Tripoint Medical CenterUrine colorOrdered By: Jasbir Whitaker on 19-64-9218Tiljn (U)Yellow YellowLakehealth Tripoint Medical CenterUrine glucose measurement by automated test strip (mass/volume)Ordered By: Jasbir Whitaker on 62-17-5971Pjexgao Auto test strip (U) [Mass/Vol]Normal mg/dLNoCleveland Clinic Children's Hospital for RehabilitationUrine hemoglobin detection by automated test stripOrdered By: Jasbir Whitaker on 01-94-7383Pfjouulmfj Auto test strip Ql (U)3+NegativeLakehealth Tripoint Medical CenterUrine leukocyte esterase detection by automated test stripOrdered By: Jasbir Whitaker on 68-67-0301Woqczrzhn esterase Auto test strip Ql (U)Negative NegativeLakehealth Tripoint Medical CenterUrine nitrite detection by automated test stripOrdered By: Jasbir Whitaker on 33-58-4545Qtsdztl Auto test strip Ql (U) NegativeNegativeLakehealth Tripoint Medical CenterUrobilinogen Auto test strip (U) [Mass/Vol]Ordered By: Jasbir Whitaker on 98-69-1977Zvdmiflumzac (U) [Mass/Vol] Normal mg/dLNoCleveland Clinic Children's Hospital for RehabilitationWBC Auto (Bld) [#/Vol]Ordered By: Jasbir Whitaker on 60-73-0241EFF (Bld) [#/Vol]12.1 10*3/uL4.1-10.5FTriHealth Bethesda North HospitalpH Auto test strip (U)Ordered By: Jasbir Whitaker on 18-41-6631dK (U)1.020 [pH]1.001-1.030[facility] CenterpH (U)6.5 [pH]5.0-9.0[facility] CenterA1C HEMOGLOBINon 90-23-1068PlG1b (Bld) [Mass fraction]6.9 %Modum[employer] Other HbA1c (Bld) [Mass fraction]on 98-92-9800Z3B HEMOGLOBIN ReferMe [facility] SIPX Other glucose Glucometer (BldC) [Mass/Vol]Ordered By: Mejia Newton on 10-46-5093Fsfofbg [Mass/Vol]143 mg/dLLakehealth Tripoint Medical Center Comment on above:Random Glucose Reference Range is dependent on time and content of last meal. Glucose of more than 200 mg/dL in a nonstressed, ambulatory subject supports the diagnosis of Diabetes Mellitus.No Panel InformationOrdered By: Mejia Newton on 50-21-1734Wojncme Glucose CommentGlu2: cleaned meter [facility] CenterCOVID-19 Positive/NegativeOrdered By: Mejia Newton on 04-65-1859WKBG-CoV-2 (COVID-19) N gene MILAN+probe Ql (Resp)Negative NegativeLakehealth Tripoint Medical CenterComment on above:Testing for SARS-CoV-2 by RT-PCR This test was developed and its performance characteristics determined by [employer] ([employer]) and validated at the [facility]. This test has not been FDA cleared or approved. This test has been authorized by FDA under an Emergency Use Authorization (EUA). This test has been validated in accordance with the FDA's Guidance Document (Policy for Diagnostics Testing in Laboratories Certified to Perform High Complexity Testing under CLIA prior to Emergency Use Authorization for Coronavirus Disease-2019 during the Public Health Emergency) issued on May 09, 2019. This test is only authorized for the duration of time the declaration that circumstances exist ju stifying the authorization of the emergency use of in vitro diagnostic tests for detection of SARS-CoV-2 virus and/or diagnosis of COVID-19 infection under section 564(b)(1) of the Act, 21 U.S.C. 360bbb-3(b)(1), unless the authorization is terminated or revoked sooner.Basophils Auto (Bld) [#/Vol]Ordered By: Mejia Newton on 48-51-8174Gxrzyekqh (Bld) [#/Vol]0.1 10*3/uL0.0-0.2FTriHealth Bethesda North HospitalBasophils/100 WBC Auto (Bld)Ordered By: Mejia Newton on 09-07-2021 Basophils/100 WBC (Bld)1.4 %.[facility] CenterBlood hemoglobin measurement (mass/volume)Ordered By: Mejia Newton on 45-53-6363Hydnxxmoeu (Bld) [Mass/Vol]15.8 g/dL13.0-17.0[facility] CenterBlood leukocytes automated count (number/volume)Ordered By: Mejia Newton on 08-90-0643UTC (Bld) [#/Vol]8.9 10*3/uL4.5-11.0[facility] CenterCreatinine and Glomerular filtration rate.predicted panel (S/P/Bld)Ordered By: Mejia Newton on 47-75-8999Ojebzsqdsr [Mass/Vol]1.17 mg/dL0.64-1.27[facility] CenterEosinophils Auto (Bld) [#/Vol]Ordered By: Mejia Newton on 09-07-2021 Eosinophils (Bld) [#/Vol]0.1 10*3/uL0.0-0.45[facility] Eosinophils/100 WBC Auto (Bld)Ordered By: Mejia Newton on 09-07-2021 Eosinophils/100 WBC (Bld)1.4 %.[facility] CenterErythrocyte distribution width Auto (RBC) [Ratio]Ordered By: Mejia Newton on 09-07-2021 Erythrocyte distribution width (RBC) [Ratio]13.0 %12.0-14.8[facility] CenterEstimated glomerular filtration rate (GFR) non- Ordered By: Mejia Newton on 05-75-5621MIJ/1.73 sq M.predicted among non-blacks MDRD (S/P/Bld) [Vol rate/Area]> 60 mL/MinLakehealth Tripoint Medical Center Hematocrit Auto (Bld) [Volume fraction]Ordered By: Mejia Newton on 09-07-2021 Hematocrit (Bld) [Volume fraction]47.5 %38.8-50.0[facility] CenterLaboratory - Hematology and Cell countsOrdered By: Mejia Newton on 33-96-4734Qjueigzhd RBC/100 WBC (Bld) [Ratio]0.0 %0-0.5FTriHealth Bethesda North HospitalLymphocytes Auto (Bld) [#/Vol]Ordered By: Mejia Newton on 56-29-5110Ijrtheslnbp (Bld) [#/Vol]3.2 10*3/uL1.00-4.8[facility] CenterLymphocytes/100 WBC Auto (Bld)Ordered By: Mejia Newton on 09-07-2021 Lymphocytes/100 WBC (Bld)35.7 %.[facility] HospitalH Auto (RBC) [Entitic mass]Ordered By: Mejia Newton on 19-97-5555DMQ (RBC) [Entitic mass]31.6 pg27.5-35.2FTriHealth Bethesda North HospitalMCHC Auto (RBC) [Mass/Vol]Ordered By: Mejia Newton on 60-77-5424AHIZ (RBC) [Mass/Vol]33.2 g/dL32.5-35.6FTriHealth Bethesda North HospitalMCV Auto (RBC) [Entitic vol]Ordered By: Mejia Newton on 85-52-8570NWU (RBC) [Entitic vol]95.2 fL83.5-101[facility] CenterMonocytes Auto (Bld) [#/Vol]Ordered By: Mejia Newton on 09-07-2021 Monocytes (Bld) [#/Vol]0.9 10*3/uL0.0-0.8[facility] Monocytes/100 WBC Auto (Bld)Ordered By: Mejia Newton on 65-20-8064Prdhdpsni/100 WBC (Bld)10.0 %.[facility] CenterNeutrophils Auto (Bld) [#/Vol] Ordered By: Mejia Newton on 20-64-8076Iruezdbswce (Bld) [#/Vol]4.6 10*3/uL 1.8-7.7FTriHealth Bethesda North HospitalNeutrophils/100 WBC Auto (Bld)Ordered By: Mejia Newton on 22-59-7646Mtimcxvnfwr/100 WBC (Bld)51.5 %.[facility] CenterNo Panel InformationOrdered By: Mejia Newton on 09-07-2021 Estimated GFR ()> 60 mL/MinLakehealth Tripoint Medical Center Comment on above:GFR estimated reference range: According to KDOQI guidelines, <60 ml/min/1.73m2 is sufficient todiagnose a patient with chronic kidney disease.Pharmacy Creatinine Clearance (ChemN/[facility] Platelet mean volume Auto (Bld) [Entitic vol]Ordered By: Mejia Newton on 57-93-4703Iswvyicl mean volume (Bld) [Entitic vol]8.6 fL6.6-10.1FTriHealth Bethesda North HospitalPlatelets Auto (Bld) [#/Vol]Ordered By: Mejia Newton on 38-59-0860Fuvezndlg (Bld) [#/Vol]233 10*3/mD056-364MuvdqxmhiLakehealth Tripoint Medical CenterRBC Auto (Bld) [#/Vol]Ordered By: Mejia Newton on 56-14-3409JPI (Bld) [#/Vol]5.00 10*6/uL3.90-5.60St. [facility] Hospitalerum or plasma calcium measurement (mass/volume)Ordered By: Mejia Newton on 76-93-5727Phauuwj [Mass/Vol]9.7 mg/dL8.2-10.2FPremier Healtherum or plasma chloride measurement (moles/volume)Ordered By: Mejia Newton on 09-07-2021 Chloride [Moles/Vol]104 mmol/S19-165QkottpusvSt. Anthony's Hospitalerum or plasma glucose measurement (mass/volume)Ordered By: Mejia Newton on 09-07-2021 Glucose [Mass/Vol]142 mg/wI98-125NxzfejfmdLakehealth Tripoint Medical CenterComment on above:ADA recommended reference range Random Glucose Reference Range is dependent on time and content of last meal. Glucose of more than 200 mg/dL in a nonstressed, ambulatory subject supports the diagnosis of Diabetes Mellitus.Serum or plasma potassium measurement (moles/volume)Ordered By: Mejia Newton on 43-42-1241Pkuxszxex [Moles/Vol]4.5 mmol/L3.5-5.1FPremier Healtherum or plasma sodium measurement (moles/volume)Ordered By: Mejia Newton on 18-36-1850Yfrkhb [Moles/Vol]140 mmol/Q014-959VqnbwcfhiSt. Anthony's Hospitalerum or plasma total carbon dioxide measurement (moles/volume)Ordered By: Mejia Newton on 45-06-7181RQ6 [Moles/Vol]24.5 mmol/L22.0-30.0St. [facility] Hospitalerum or plasma urea nitrogen measurement (mass/volume)Ordered By: Mejia Newton on 09-07-2021 Urea nitrogen [Mass/Vol]17 mg/dL9-23[facility] CenterA1C HEMOGLOBINon 27-33-7847RoU0i (Bld) [Mass fraction]6.3 %[employer] Other HbA1c (Bld) [Mass fraction]on 87-23-8385V5U HEMOGLOBIN [employer] Other Lab Reportson 34-98-5701Zth Reports [id number]#[id number]:127NoWood County HospitalAmbulatory Clinical Summaryon 88-00-8487Staslsugbs Clinical Summary {[id number]}CD:[id number] County HospitalPatient Educationon 82-22-6709Qmldwzn EducationFamily Medicine Obesity Obesity is having too much body fat and a body mass index (BMI) of 30 or more. BMI is a number based on your height and weight. The number is an estimate of how much body fat you have. Obesity can happen if you eat more calories than you can burn by exercising or other activity. It can cause major health problems or emergencies. HOME CARE ? Exercise and be active as told by your doctor. Try: ? Using stairs when you can. ? Parking farther away from store doors. ? Gardening, biking, or walking. ? Eat healthy foods and drinks that are low in calories. Eat more fruits and vegetables. ? Limit fast food, sweets, and snack foods that are made with ingredients that are not natural (processed food ). ? Eat smaller amounts of food. ? Keep a journal and write down what you eat every day. Websites can help with this. ? Avoid drinking alcohol. Drink more water and drinks without calories. ? Take vitamins and dietary pills (supplements ) only as told by your doctor. ? Try going to weight-loss support groups or classes to help lessen stress. Dieticians and counselors may also help. GET HELP RIGHT AWAY IF: ? You have chest pain or tightness. ? You have trouble breathing or feel short of breath. ? You feel weak or have loss of feeling (numbness ) in your legs. ? You feel confused or have trouble talking. ? You have sudden changes in your vision. MAKE SURE YOU: ? Understand these instructions. ? Will watch your condition. ? Will get help right away if you are not doing well or get worse. Document Released: 04/16/2012 Document Reviewed: 04/16/2012 ExitCare? Patient Information ?2013 [employer]. Hydrocele, Adult Fluid can collect around the testicles. This fluid forms in a sac. This condition is called a hydrocele. The collected fluid causes swelling of the scrotum. Usually, it affects just one testicle. Most of the time, the condition does not cause pain. Sometimes, the hydrocele goes away on its own. Other times, surgery is needed to get rid of the fluid. CAUSES A hydrocele does not develop often. Different things can cause a hydrocele in a man, including: ? Injury to the scrotum. ? Infection. ? X-ray of the area around the scrotum. ? A tumor or cancer of the testicle. ? Twisting of a testicle. ? Decreased blood flow to the scrotum. SYMPTOMS ? Swelling without pain. The hydrocele feels like a water-filled balloon. ? Swelling with pain. This can occur if the hydrocele was caused by infection or twisting. ? Mild discomfort in the scrotum. ? The hydrocele may feel heavy. ? Swelling that gets smaller when you lie down. DIAGNOSIS Your caregiver will do a physical exam to decide if you have a hydrocele. This may include: ? Asking questions about your overall health, today and in the past. Your caregiver may ask about any injuries, X-rays, or infections. ? Pushing on your abdomen or asking you to change positions to see if the size of the hydrocele changes. ? Shining a light through the scrotum (transillumination ) to see if the fluid inside the scrotum is clear. ? Blood tests and urine tests to check for infection. ? Imaging studies that take pictures of the scrotum and testicles. TREATMENT Treatment depends in part on what caused the condition. Options include: ? Watchful waiting. Your caregiver checks the hydrocele every so often. ? Different surgeries to drain the fluid. ? A needle may be put into the scrotum to drain fluid (needle aspiration ). Fluid often returns after this type of treatment. ? A cut (incision ) may be made in the scrotum to remove the fluid sac (hydrocelectomy ). ? An incision may be made in the groin to repair a hydrocele that has contact with abdominal fluids(communicating hydrocele ). ? Medicines to treat an infection (antibiotics ). HOME CARE INSTRUCTIONS What you need to do at home may depend on the cause of the hydrocele and type of treatment. In general: ? Take all medicine as directed by your caregiver. Follow the directions carefully. ? Ask your caregiver if there is anything you should not do while you recover (activities, lifting,work, sex). ? If you had surgery to repair a communicating hydrocele, recovery time may vary. Ask you caregiverabout your recovery time. ? Avoid heavy lifting for 4 to 6 weeks. ? If you had an incision on the scrotum or groin, wash it for 2 to 3 days after surgery. Do this aslong as the skin is closed and there are no gaps in the wound. Wash gently, and avoid rubbing the incision. ? Keep all follow-up appointments. SEEK MEDICAL CARE IF: ? Your scrotum seems to be getting larger. ? The area becomes more and more uncomfortable. SEEK IMMEDIATE MEDICAL CARE IF: You have a fever. Document Released: 07/13/2010 Document Revised: 04/16/2012 Document Reviewed: 07/13/2010 ExitCare? Patient Information ?2013 [employer].[facility] CenterUrology Office/Clinic Noteon [id number] Office/Clinic NoteChief Complaint 1 month follow up HPI Staff 1 month follow up. Patient had an hydrocelectomy done on 10/22/19. Previous DX: Left hydrocele, weak urine stream. Patient states his swelling went down a little, not as fast as he would like it to be. Dysuria: denies pain or burning Incomplete bladder emptying: no Hematuria: denies visible blood Frequency: mild intermittent 2 times Urgency: no Nocturia: mild intermittent 1 time per night Stream: denies delay, no stop/start, no weak stream Leaking: no Post void dripping: no Wearing pads/ Depends: no Urge incontinence: no Stress incontinence: no Incontinence without Sensory Awareness: no Abdominal pain: no Flank pain: no Sexual complaints: no History of Present Illness Pt is here for PO Hydrocelectomy Lt on 10/22/2019. Pt has no associated symptoms, no fever, no chills, no flank pain. Review of Systems PHQ Score Initial Depression Screen Score: 2 ROS - Provider Constitutional: denies weight loss, denies hot flashes. Eyes: denies eye problems. Gastrointestinal: denies nausea, denies vomiting. Cardiovascular: denies chest pain or angina. Integumentary: no dryness Musculoskeletal: denies musculoskeletal symptoms. ENMT: denies otolaryngeal symptoms. Respiratory: no shortness of breath. Heme/Lymph: denies easy bleeding tendency, denies easy bruising tendency. Psychiatric: no confusion, no anxiety. Genitourinary: denies dysuria, denies hematuria, denies discharge, denies urinary frequency, deniesurinary hesitancy, denies nocturia, denies incontinence, denies genital sores, denies decreased libido, and denies erectile dysfunction. Physical Exam Vitals & Measurements HR: 93(Apical) RR: 16 BP: 158/107 HT: 176 cm HT: 176.0 cm WT: 113.6 kg WT: 113.6 kg BMI: 36.67 General Appearance: alert, no distress, well nourished, well developed male. Genitourinary: normal no swelling of scrotum. scrotum, normal testes, normal urethra, normal epididymis, normal vas deferens/spermatic cord. testicle and epididiymis//cord are still indurated and enlarged, but less. He has had about 50% improvement since last visit. Assessment/Plan Will return for follow up in 2 months. 1. Left hydrocele (N43.3: Hydrocele, unspecified) S/P Lt Hydrocelectomy 10/12/2019. Pt's surgical site is healing well. There are still sutures visible and there is still moderate induration. 2. Erectile dysfunction (N52.9: Male erectile dysfunction, unspecified) Pt is on Sildenafil 50mg PRN. 3. Hypogonadism male (E29.1: Testicular hypofunction) Will order Testosterone Level due to Low sex drive. 4. BMI 36.0-36.9,adult (Z68.36: Body mass index [BMI] 36.0-36.9, adult) Follow-up With When Contact Information DENZEL ESCUDERO, Alexandru Covarrubias In [address] [place] [phone] Business (1) Additional Instructions: Patient Education Obesity, Voxb-cj-Pcfp Hydrocele, Adult Gladys Knott personally scribed for Dr. Mahoney on 12/04/2019 15:47:04. . Documentation recorded by the scribe, Gladys Schafer, accurately reflects the services(s) I performedand decisions made by me. Authenticated by Dr. Mahoney on 12/04/2019 15:51:00. Problem List/Past Medical History Ongoing BMI 36.0-36.9,adult Depression Diabetes Erectile dysfunction Hypogonadism male Left hydrocele Urinary complication Weak urine stream Historical No qualifying data Procedure/Surgical History Hydrocelectomy (10/22/2019), Procedure on nasal septum, Procedure on uvula. Medications Cymbalta, Oral diltiazem 30 mg Tab, Oral, QID gabapentin, Oral Lamictal, Oral, BID lisinopril, Oral, Daily metformin, Oral omeprazole, Oral, Daily pravastatin, Oral, Daily Ritalin, Oral sildenafil 50 mg Tab, Oral, Daily Vitamin D, Oral Allergies Mold (Unknown) Social History Tobacco Never (less than 100 in lifetime) Tobacco Use:. Never Smokeless Tobacco Use:., 12/04/2019 Family History Patient was adopted Lab Results Ambulatory Point of Care Results Bilirubin Urine Dipstick: Negative (12/04/19 15:09:00) Blood Urine Dipstick: Negative (12/04/19 15:09:00) Glucose Urine Dipstick: Negative (12/04/19 15:09:00) Ketones Urine Dipstick: Negative (12/04/19 15:09:00) Leukocytes Urine Dipstick: Negative (12/04/19 15:09:00) Nitrite Urine Dipstick: Negative (12/04/19 15:09:00) Protein Urine Dipstick: Negative (12/04/19 15:09:00) Specific [place] Urine Dipstick: >=1.030 (12/04/19 15:09:00) Urine Appearance Urine Dipstick: Clear (12/04/19 15:09:00) Urine Color Urine Dipstick: Yellow (12/04/19 15:09:00) Urobilinogen Urine Dipstick: Normal 0.2-1 EU/dl (12/04/19 15:09:00) pH Urine Dipstick: 5.5 (12/04/19 15:09:00)[facility] Comment on above:Result Comment: Electronically Signed By: Alexandru MAHONEY MD\.br\Date and Time Signed: 12/04/19 15:51 EDT\.br\Electronically Co-Signed By: Gladys Schafer.br\Date and Time Co-Signed: 12/04/19 15:47 EDTAmbulatory Clinical Summaryon [id number] Clinical Summary {[id number]}CD:[id number] County HospitalPatient Educationon [id number] EducationFamily Medicine Hydrocele, Adult Fluid can collect around the testicles. This fluid forms in a sac. This condition is called a hydrocele. The collected fluid causes swelling of the scrotum. Usually, it affects just one testicle. Most of the time, the condition does not cause pain. Sometimes, the hydrocele goes away on its own. Other times, surgery is needed to get rid of the fluid. CAUSES A hydrocele does not develop often. Different things can cause a hydrocele in a man, including: ? Injury to the scrotum. ? Infection. ? X-ray of the area around the scrotum. ? A tumor or cancer of the testicle. ? Twisting of a testicle. ? Decreased blood flow to the scrotum. SYMPTOMS ? Swelling without pain. The hydrocele feels like a water-filled balloon. ? Swelling with pain. This can occur if the hydrocele was caused by infection or twisting. ? Mild discomfort in the scrotum. ? The hydrocele may feel heavy. ? Swelling that gets smaller when you lie down. DIAGNOSIS Your caregiver will do a physical exam to decide if you have a hydrocele. This may include: ? Asking questions about your overall health, today and in the past. Your caregiver may ask about any injuries, X-rays, or infections. ? Pushing on your abdomen or asking you to change positions to see if the size of the hydrocele changes. ? Shining a light through the scrotum (transillumination ) to see if the fluid inside the scrotum is clear. ? Blood tests and urine tests to check for infection. ? Imaging studies that take pictures of the scrotum and testicles. TREATMENT Treatment depends in part on what caused the condition. Options include: ? Watchful waiting. Your caregiver checks the hydrocele every so often. ? Different surgeries to drain the fluid. ? A needle may be put into the scrotum to drain fluid (needle aspiration ). Fluid often returns after this type of treatment. ? A cut (incision ) may be made in the scrotum to remove the fluid sac (hydrocelectomy ). ? An incision may be made in the groin to repair a hydrocele that has contact with abdominal fluids(communicating hydrocele ). ? Medicines to treat an infection (antibiotics ). HOME CARE INSTRUCTIONS What you need to do at home may depend on the cause of the hydrocele and type of treatment. In general: ? Take all medicine as directed by your caregiver. Follow the directions carefully. ? Ask your caregiver if there is anything you should not do while you recover (activities, lifting,work, sex). ? If you had surgery to repair a communicating hydrocele, recovery time may vary. Ask you caregiverabout your recovery time. ? Avoid heavy lifting for 4 to 6 weeks. ? If you had an incision on the scrotum or groin, wash it for 2 to 3 days after surgery. Do this aslong as the skin is closed and there are no gaps in the wound. Wash gently, and avoid rubbing the incision. ? Keep all follow-up appointments. SEEK MEDICAL CARE IF: ? Your scrotum seems to be getting larger. ? The area becomes more and more uncomfortable. SEEK IMMEDIATE MEDICAL CARE IF: You have a fever. Document Released: 07/13/2010 Document Revised: 04/16/2012 Document Reviewed: 07/13/2010 ExitCare? Patient Information ?2013 [employer].[facility] CenterUrology Office/Clinic Noteon [id number] Office/Clinic NoteChief Complaint PO HPI Staff PO Hydrocelectomy done 10/22/2019, pathology report done 10/22/2019. Previous DX: left hydrocele. Pt states he is still having swelling and there is an area that is questionable on swelling, pt is states he is having some soreness around sac of scrotum. Pt states his whole package is getting smaller. Dysuria: denies pain or burning Incomplete bladder emptying: no Hematuria: denies visible blood Frequency: no Urgency: no Nocturia: yes mild intermittent once a night Stream: no hesitancy, yes weak stream Leaking: no Post void dripping: no Wearing pads/ Depends: no Urge incontinence: no Stress incontinence: no Incontinence without Sensory Awareness: no Abdominal pain: no Flank pain: no Sexual complaints: no History of Present Illness reviewed pathology. reviewed op note. reviewed last encounter. There have been no associated fever, chills, flank pain or blood in the urine. Pt is not having anyburning with urination. Review of Systems ROS - Provider Constitutional: denies weight loss, denies hot flashes. Eyes: denies eye problems. Gastrointestinal: denies nausea, denies vomiting. Cardiovascular: denies chest pain or angina. Integumentary: no dryness Musculoskeletal: denies musculoskeletal symptoms. ENMT: denies otopharyngeal symptoms. Respiratory: no shortness of breath. Heme/Lymph: denies easy bleeding tendency, denies easy bruising tendency. Psychiatric: no confusion, no anxiety. Genitourinary: denies dysuria, denies hematuria, denies discharge, denies urinary frequency, deniesurinary hesitancy, denies nocturia, denies incontinence, denies genital sores, denies decreased libido, and denies erectile dysfunction. mild, weak stream. Physical Exam Vitals & Measurements HR: 88(Peripheral) RR: 16 BP: 140/90 HT: 176.0 cm HT: 176 cm WT: 112.2 kg WT: 112.2 kg BMI: 36.22 General Appearance: alert, no distress, well nourished, well developed male. Genitourinary: abnormal left scrotum is swollen, indurated mildly tender. Incision looks good. No drainage , normal testes, normal urethra, normal epididymis, normal vas deferens/spermatic cord. Flank Pain: none. Bladder: nonpalpable. Assessment/Plan 1. Left hydrocele (N43.3: Hydrocele, unspecified) Pt is a POST OP - S/P hydrocelectomy 10/22/19. The pathology report was reviewed with the patient in detail today. There is no evidence of malignancy and no further evaluation of the tissue removed is planned. All questions were answered and the report discussed in terms that the patient could understand. Pt states that he has swelling and has some discomfort. Pt denies any drainage. Pt was advised to wear some really tight under garments. Was discussed that at this time this swelling was to beexpected. Swelling will go down over time and is ok for him to return to work. Pt was advised to take 2-3 Advil with food for pain and swelling. Pt will return to office in 1 month. 2. Weak urine stream (R39.12: Poor urinary stream) pt states that he is having a weak stream. I have reviewed the previous health record information and history for this patient from Dr. Mahoney Follow-up With When Contact Information Alexandru MAHONEY MD In 1 month [facility] [address], [place] [phone] Additional Instructions: Patient Education Hydrocele, Adult I, Oliva Jason, personally scribed for Dr. Mahoney on 11/05/2019 08:32:35. . Documentation recorded by the scribe, Oliva Jason, accurately reflects the services(s) I performed and decisions made by me. Authenticated by Dr. Mahoney on 11/05/2019 08:33:58. Problem List/Past Medical History Ongoing Depression Diabetes Left hydrocele Urinary complication Weak urine stream Historical No qualifying data Procedure/Surgical History Hydrocelectomy (10/22/2019), Procedure on nasal septum, Procedure on uvula. Medications Cymbalta, Oral diltiazem 30 mg Tab, Oral, QID gabapentin, Oral Lamictal, Oral, BID lisinopril, Oral, Daily metformin, Oral omeprazole, Oral, Daily pravastatin, Oral, Daily Ritalin, Oral sildenafil 50 mg Tab, Oral, Daily Vitamin D, Oral Allergies Mold (Unknown) Social History Tobacco Never (less than 100 in lifetime) Tobacco Use:. Never Smokeless Tobacco Use:., 11/05/2019 [facility]:Result Comment: Electronically Signed By: Alexandru MAHONEY MD\.br\Date and Time Signed: 11/05/19 08:34 EDT\.br\Electronically Co-Signed By: Casie VU, Oliva Clements.nereida\Date and Time Co-Signed: 11/05/19 08:32 EDTPathology Noteon 10-28-2019 Pathology [id number]#1.00CD:127JulietteWood County HospitalOperative Reporton [id number] Report [id number]#1.00CD:EstefaniCinc[facility] Children's Hospital Medical CenterLab Reportson [id number] Reports [id number]#1.00CD:EstefaniCincinnati Children's Hospital Medical CenterFormson [id number]#1.00CD:127 [facility] CenterProvider Letter FTMCon [id number] Letter FT October 17, 2019 [facility] [address] [place] [address] [facility] 1960 To Whom It May Concern, Please excuse above patient from work. Date of Illness: 10/22/2019 From: 10/22/2019 To: 11/05/2019 May Return to Work On:11/06/2019 Restrictions: Patient may return to work without restrictions on 11/06/2019 Comments: Patient is having surgery 10/22/2019. No work for 2 weeks. 10/22/19- 11/05/2019. Sincerely, Alexandru Mahoney M.D., F.A.C.S.[facility] CenterLab Reportson [id number] [id number]:127Juliettehardik Berger HospitalCNPNon [id number] (ELLA) [facility]SE ( ) 1960 M Date Time Provider Department 07/29/18 SELMA FERGUSON (RES) ELLA During your visit today, we recorded the following information about you: Selma Ferguson DO, 07/29/2018 9:12 AM Signed The following approved medication requests have been transmitted electronically. Signed Prescriptions Disp Refills DULoxetine (CYMBALTA) 30 mg capsule 30 capsule 0 Sig: Take 3 capsules by mouth once daily for 10 days. HARSHAL: No Authorizing Provider: SELMA FERGUSON (RES) Selma Ferguson DO Allergies As of Date: 07/29/2018 (No Known Allergies) Date Reviewed: 06/02/2018 Reviewed by: Jenelle Mckeon - Fully Assessed Reason for Visit: Refill Request [94] Visit Diagnosis:PEPE (generalized anxiety disorder) [F41.1] Order(s):DULoxetine (CYMBALTA) 30 mg capsuleTake 3 capsules by mouth once daily for 10 days.Disp: 30 capsuleRfl: 0 Prescriptions as of 07/29/2018 Sig: DULOXETINE 30 MG CAPSULE,NOLVIA* Take 3 capsules by mouth once* LAMOTRIGINE 200 MG TABLET Take 2 tablets by mouth once * GABAPENTIN 300 MG CAPSULE Take 1 capsule by mouth three* BUPROPION XL 150 MG TAB Take 1 tablet by mouth once d* CHOLECALCIFEROL (VITAMIN D3) * Take 1 tablet by mouth once d* GABAPENTIN 300 MG CAPSULE Take 1 capsule by mouth three* DULOXETINE 30 MG CAPSULE,NOLVIA* Take 3 capsules by mouth once* LISINOPRIL 20 MG-HYDROCHLOROT* take one daily PANTOPRAZOLE 40 MG TABLET,DEL* take one tab daily SIMVASTATIN 80 MG TABLET take one tab daily CARDIZEM CD 240 MG CAPSULE,EX* take one tab Problem List As Of Date 07/29/2018 Noted Resolved ADHD (attention deficit hyperactivity disorder)*INVALID FOR* PEPE (generalized anxiety disorder) [F41.1] INVALID FOR* Attention-deficit hyperactivity disorder, combi*INVALID FOR* Prescriptions ordered this encounter Disp Refills Start End DULOXETINE 30 MG CAPSULE,DELAYED REL* 30 c* 0 07/29/2018 08/08/2018 Route: ORAL Sig: Take 3 capsules by mouth once daily for 10 days. Medications Discontinued During This Encounter DULoxetine (CYMBALTA) 30 mg capsule 270 * 1 05/07/2018 07/29/2018 Route: ORAL Sig: Take 3 capsules by mouth once daily. Disc: Reason for discontinue is not on file. Encounter Status:Closed by SELMA FERGUSON DO on 07/29/18[facility] Vital Signs Date TimeVital SignValuePerforming [id number] 15:13-0400Body .26 cmThomas Phillips DO Work Phone: 1(518)[address] [place], [place] 9962110-29-2025 15:13-0400 Body mass index (BMI) [Ratio]34.1 kg/i4Nrxgoj Phillips DO Work Phone: 1(079)[address] [place], [place] 9962110-29-2025 15:13-0400 Body .77 kgThjeal Phillips DO Work Phone: 1(924)[address] [place], [place] [address]962110-29-2025 15:13-0400 Diastolic blood daddgprq39 mm[Hg]Mejia Phillips DO Work Phone: 1(090)[address] [place], [place] 9962110-29-2025 15:13-0400 Heart rate95 /minThjael Phillips DO Work Phone: 1(768)[address] [place], [place] 9962110-29-2025 15:13-0400 Systolic blood kqwysrln272 mm[Hg]Mejia Phillips DO Work Phone: 1(735)[address] [place], [place] 9962110-17-2025 10:17-0400 Diastolic blood laapaftc37 mm[Hg]Mejia Phlilips DO Work Phone: 1(207)[address] [place], [place] 9962110-17-2025 10:17-0400 Heart rate77 /minThomas Phillips DO Work Phone: 1(885)[address] [place], [place] 9962110-17-2025 10:17-0400 Respiratory rate16 /minThomas Phillips DO Work Phone: 1(853)[address] [place], [place] [address]2110-17-2025 10:17-0400 SaO2% (BldA) [Mass fraction]97 %Mejai Phillips DO Work Phone: [facility]10-17-2025 10:17-0400 Systolic blood cvnadcxn675 mm[Hg]Mejia Phillips DO Work Phone: [facility]10-17-2025 08:30-0400 Body jgfozd317.26 cmTjerel Phillips DO Work Phone: [facility]10-17-2025 08:30-0400 Body ljizan987.13 kgThjael Phillips DO Work Phone: [facility]09-09-2025 16:08-0400 Body mass index (BMI) [Ratio]40.61 kg/y6VmmaptaNeville Richardson BURRER OPERATOR Work Phone: 1(982)[address] [place], [place] [address]Bhoctqpjnb14-64-3514 16:08-0400Body temperature 97.81 [degF]Neville Richardson BURRER OPERATOR Work Phone: 1(443)[address]09-09-2025 16:08-0400Body cpipwt383.74 kgNeville Richardson BURRER OPERATOR Work Phone: 1(939)[address] [place], [place] [address]Vkpoktwcpw81-91-2767 16:08-0400Diastolic blood mm[Hg]Neville Richardson BURRER OPERATOR Work Phone: 1(829)[address]09-09-2025 16:08-0400Heart rate82 /min Neville Richardson BURRER OPERATOR Work Phone: 1(762)[address] [place], [place] [address]Yxfjjtidqx65-67-7057 16:08-0400Respiratory rate20 /minNeville Richardson BURRER OPERATOR Work Phone: 1([phone] CenterYfuejkudnv44-95-7663 16:08-0077XnJ6% (BldA) [Mass fraction]99 %Neville Richardson BURRER OPERATOR Work Phone: [phone])7706690[facility] CenterCohfocqstl99-65-5986 16:08-0400Systolic blood yaixgrqt902 mm[Hg]Nevillejonna Richardson BURRER OPERATOR Work Phone: 1(722)[address]04-15-2025 16:25-0400Body aonqug733.26 cmTnorth baldwin infirmaryas Phillips DO Work Phone: 1(746)[address] [place], [place] 9962104-15-2025 16:25-0400 Body mass index (BMI) [Ratio]36 kg/j5Mqgtie Phillips DO Work Phone: 1(006)[address] [place], [place] 9962104-15-2025 16:25-0400 Body krvhja072.67 kgThjael Phillips DO Work Phone: 1(396)[address] [place], [place] 9962104-15-2025 16:25-0400 Diastolic blood jhxkekpd08 mm[Hg]Mejia Phillips DO Work Phone: 1(853)[address] [place], [place] 9962104-15-2025 16:25-0400 Heart rate89 /minThomas Phillips DO Work Phone: 1(418)[address] [place], [place] 9962104-15-2025 16:25-0400 SaO2% (BldA) [Mass fraction]96 %Mejia Phillips DO Work Phone: 1(586)[address] [place], [place] 9962104-15-2025 16:25-0400 Systolic blood exskrcmq636 mm[Hg]Mejia Phillips DO Work Phone: 1(540)[address] [place], [place] 9962102-03-2025 12:30-0500 Diastolic blood nicbxpdh67 mm[Hg]Mejia Phillips DO Work Phone: 1(815)[address] [place], [place] 9962102-03-2025 12:30-0500 Heart rate75 /minThomas Phillips DO Work Phone: 1(036)[address] [place], [place] 9962102-03-2025 12:30-0500 Respiratory rate16 /minThomas Phillips DO Work Phone: 1(113)[address] [place], [place] 9962102-03-2025 12:30-0500 SaO2% (BldA) [Mass fraction]100 %Mejia Phillips DO Work Phone: 1(116)[address] [place], [place] 9962102-03-2025 12:30-0500 Systolic blood mm[Hg]Mejia Phillips DO Work Phone: 1(155)[address] [place], [place] 9962102-03-2025 10:22-0500 Body .26 Sussy Phillips DO Work Phone: 1(358)[address] [place], [place] 9962102-03-2025 10:22-0500 Body oovohg780.13 kgThomas Phillips DO Work Phone: 1(579)[address] [place], [place] 9962112-13-2024 09:07-0500 Diastolic blood hfaxxeee51 mm[Hg]Mejia Phillips DO Work Phone: 1(129)[address] [place], [place] 9962112-13-2024 09:07-0500 Heart rate91 /minThomas Phillips DO Work Phone: 1(914)[address] [place], [place] 9962112-13-2024 09:07-0500 Respiratory rate16 /minThomas Phillips DO Work Phone: 1(384)[address] [place], [place] 9962112-13-2024 09:07-0500 SaO2% (BldA) [Mass fraction]95 %Mejia Phillips DO Work Phone: 1(070)[address] [place], [place] 9962112-13-2024 09:07-0500 Systolic blood mm[Hg]Mejia Phillips DO Work Phone: 1(208)[address] [place], [place] 9962112-13-2024 08:17-0500 Body cqimiq485.26 Sussy Phillips DO Work Phone: 1(549)[address] [place], [place] 9962112-13-2024 08:17-0500 Body ibqrfj869.39 kgThjael Phillips DO Work Phone: 1(845)[address] [place], [place] 9962108-13-2024 14:59-0400 Body rxalfr346.26 cmDO Mejia Phillips Work Phone: 1(445)[address] [place], [place] 9962108-13-2024 14:59-0400 Body mass index (BMI) [Ratio]35.7 kg/m2DO Mejia Phillips Work Phone: 1(489)[address] [place], [place] 9962108-13-2024 14:59-0400 Body .76 kgDO Mejia Phillips Work Phone: [facility]08-13-2024 14:59-0400 Diastolic blood qfgluyua05 mm[Hg]DO Mejia Phillips Work Phone: [facility]08-13-2024 14:59-0400 Heart rate88 /minDO Mejia Phillips Work Phone: 1(163)2-[address] [place], [place] 6184608-13-2024 14:59-0400 SaO2% (BldA) [Mass fraction]97 %DO Mejia Phillips Work Phone: 1(504)0-[facility]08-13-2024 14:59-0400 Systolic blood xihhpnhn735 mm[Hg]DO Mejia Phillips Work Phone: [facility]04-17-2024 16:10-0400 Body .26 cmL[facility] Center04-17-2024 16:10-0400Body mass index (BMI) [Ratio]35.4 kg/j3PekwvmiubLakehealth Tripoint Medical Center04-17-2024 16:10-0400Body dmejte841.86 kgLakehealth Tripoint Medical Center04-17-2024 16:10-0400Diastolic blood fnuqhixg43 mm[Hg][facility] 05-24-2023 16:10-0400Heart rate82 /minLakehealth [facility]point Medical Center 05-24-2023 16:10-6153ZxH6% (BldA) [Mass fraction]96 %[facility]04-17-2024 16:10-0400Systolic blood eoosxzct661 mm[Hg][facility]04-03-2024 13:52-0400Body .26 cmL[facility]health [facility] Center04-03-2024 13:52-0400Body mass index (BMI) [Ratio]34.8 kg/m2 [facility]04-03-2024 13:52-0400Body gpzmrvujhsm73.8 [degF][facility]04-03-2024 13:52-0400Body awonky115.04 kg [facility]04-03-2024 13:52-0400Diastolic blood edophjmt85 mm[Hg][facility]04-03-2024 13:52-0400Heart rate78 /min [facility]04-03-2024 13:52-6987PgE6% (BldA) [Mass fraction]96 %[facility]04-03-2024 13:52-0400Systolic blood ayzlbtwy776 mm[Hg][facility]08-07-2023 09:50-0400 Diastolic blood xdywkime87 mm[Hg]DO Mejia Alan Work Phone: 1(257)[address]08-07-2023 09:50-0400 Heart rate81 /AureliaDaniele Mejia Phillips Work Phone: 1(211)[address]08-07-2023 09:50-0400 Respiratory rate14 /AureliaO Mejia Phillips Work Phone: 1(527)[address]08-07-2023 09:50-0400 SaO2% (BldA) [Mass fraction]81 %DO Mejia Phillips Work Phone: 1(192)[address]08-07-2023 09:50-0400 Systolic blood ktfojhwo186 mm[Hg]DO Mejia Phillips Work Phone: [facility]006[facility]35[facility]08-07-2023 08:06-0400 Body .26 cmDO Mejia Phillips Work Phone: 1(841)1-[facility]08-07-2023 08:06-0400 Body ivkwhhcaxsb59.3 [degF]DO Mejia Phillips Work Phone: 1(165)838-[facility]08-07-2023 08:06-0400 Body ldsohy130.39 kgDO Mejia Phillips Work Phone: 1(882)296-[address] [place], [place] 6184606-22-2023 16:00-0400 Body kikxip037.26 Sussy Phillips Other [facility] [employer] Other 06-22-2023 16:00-0400Body mass index (BMI) [Ratio] 36.32 kg/f7Czgcfejael Phillips Other [employer] Other 06-22-2023 16:00-0400Body .59 kgThomas Alan Other [employer] Other 06-22-2023 16:00-0400Diastolic blood mm[Hg] Mejia Phillips Other [employer] Other 06-22-2023 16:00-0400Respiratory rate18 /minThjael Phillips Other [employer] Other 06-22-2023 16:00-7741CxL9% (BldA) [Mass fraction]97 % Mejia Phillips Other [employer] Other 06-22-2023 16:00-0400Systolic blood uvpbajqo100 mm[Hg] Mejia Phillips Other [employer] Other 04-26-2023 17:15-0400Body xmsdqa014.26 cmThomas Phillips Other [employer] Other 04-26-2023 17:15-0400Body mass index (BMI) [Ratio] 36.03 kg/x9Wrplcxjael Phillips Other [employer] Other 04-26-2023 17:15-0400Body tzdkey139.68 kgThjael Smithley Other [employer] Other 04-26-2023 17:15-0400Diastolic blood vqhzhnyh98 mm[Hg] Mejia Phillips Other [facility] [employer] Other 04-26-2023 17:15-0400Respiratory rate18 /minThjael Phillips Other [place] [employer] Other 04-26-2023 17:15-3538VyW8% (BldA) [Mass fraction]94 % Mejia Phillips Other [place] [employer] Other 04-26-2023 17:15-0400Systolic blood lzdhoiwo988 mm[Hg] Mejia Phillips Other [place] [employer] Other 04-03-2023 14:51-0400Diastolic blood itfvpcqd14 mm[Hg] DO Mejia Phillips Work Phone: [phone])475-[facility]04-03-2023 14:51-0400 Heart rate85 /AureliaO Mejia Phillips Work Phone: [phone]-[facility]04-03-2023 14:51-0400 Respiratory rate20 /AureliaO Mejia Phillips Work Phone: [phone])489-[facility]04-03-2023 14:51-0400 SaO2% (BldA) [Mass fraction]98 %DO Mejia Phillips Work Phone: [facility]04-03-2023 14:51-0400 Systolic blood ggvsytsn863 mm[Hg]DO Mejia Phillips Work Phone: [facility]04-03-2023 12:20-0400 Body .26 cmDO Mejia Phillips Work Phone: [facility]04-03-2023 12:20-0400 Body agfbicptolq96.1 [degF]DO Mejia Phillips Work Phone: [phone]-[facility]04-03-2023 12:20-0400 Body afbymw591 kgDO Mejia Phillips Work Phone: [facility]02-22-2023 16:15-0500 Body gvvsoj219.26 cmTjerel Phillips Other [employer] Other 02-22-2023 16:15-0500Body mass index (BMI) [Ratio] 36.62 kg/r9Shotsejael Phillips Other [employer] Other 02-22-2023 16:15-0500Body hcptimpjnhb56.1 [degF]Mejia Phillips Other [employer] Other 02-22-2023 16:15-0500Body qktyyh009.49 kgThjael Phillips Other [employer] Other Phone: [phone] 16:15-0500Diastolic blood togwgdlj00 mm[Hg] Mejia Phillips Other [employer] Other Phone: [phone] 16:15-0500Respiratory rate18 /minMejia Phillips Other [employer] Other 02-22-2023 16:15-2759ZrU0% (BldA) [Mass fraction]98 % Mejia Phillips Other [employer] Other 02-22-2023 16:15-0500Systolic blood rgiigusv737 mm[Hg] Mejia Phillips Other [employer] Other 02-07-2023 17:00-0500Body qwejwe845.26 cmLam Betts Other [employer] Other 02-07-2023 17:00-0500Body mass index (BMI) [Ratio]36.1 kg/i7Hxero Alpesh Other no[facility]GR[facility] Other 02-07-2023 17:00-0500Body bvduhidzdoo87.1 [degF]Lam Betts Other [employer] Other 02-07-2023 17:00-0500Body wtycli136.91 kgDajohn Alpesh Other no[facility] Other 02-07-2023 17:00-0500Diastolic blood dideyfjx09 mm[Hg] Lam Betts Other [employer] Other 02-07-2023 17:00-2728UfM0% (BldA) [Mass fraction]96 % Lam Betts Other [employer] Other 02-07-2023 17:00-0500Systolic blood cmtcuxls036 mm[Hg] Lam Betts Other [employer] Other 08-10-2022 14:19-0400Diastolic blood xvitruqj93 mm[Hg] DO Mejia Smithley Work Phone: [facility]08-10-2022 14:19-0400 Heart rate95 /minDO Mejia Phillips Work Phone: [facility]08-10-2022 14:19-0400 Respiratory rate16 /minDO Mejia Phillips Work Phone: [facility]08-10-2022 14:19-0400 SaO2% (BldA) [Mass fraction]95 %DO Mejia Smithley Work Phone: [facility]08-10-2022 14:19-0400 Systolic blood quqcldzg865 mm[Hg]DO Mejia Smithley Work Phone: [phone]-[facility]08-10-2022 14:04-0400 Inhaled oxygen flow rate2 L/minDO Mejia Phillips Work Phone: [phone] [place], [place] 6184608-10-2022 13:28-0400 Body ncnugquzewe79 [degF]DO Mejai Phillips Work Phone: [phone]08-10-2022 11:18-0400 Body xnbyap904.26 cmDO Mejia Phillips Work Phone: [phone]08-10-2022 11:18-0400 Body mass index (BMI) [Ratio]35.8 kg/m2DO Mejia Phillips Work Phone: [phone]08-10-2022 11:18-0400 Body kbsuwd465 kgDO Mejia Phillips Work Phone: [phone] [place], [place] 6184608-01-2022 15:45-0400 Body .26 cmThomas Olexa Other [employer] Other 08-01-2022 15:45-0400Body mass index (BMI) [Ratio] 35.91 kg/n2Wtzogc Olexa Other [facility] [employer] Other 08-01-2022 15:45-0400Body adhqcj295.32 kgThomas Olexa Other [employer] Other 07-13-2022 17:15-0400Body .26 cmThomas Phillips Other [employer] Other 07-13-2022 17:15-0400Body mass index (BMI) [Ratio] 36.18 kg/s8Dafmbf Phillips Other [employer] Other 07-13-2022 17:15-0400Body mqjifz528.13 kgThjael Phillips Other [employer] Other 07-13-2022 17:15-0400Diastolic blood selfrtmr78 mm[Hg] Mejia Alan Other [employer] Other 07-13-2022 17:15-0400Respiratory rate18 /minThjael Phillips Other [employer] Other 07-13-2022 17:15-1748PbQ3% (BldA) [Mass fraction]97 % Mejia Phillips Other [employer] Other 07-13-2022 17:15-0400Systolic blood peqglvnx272 mm[Hg] Mejia Phillips Other [employer] Other 06-08-2022 17:00-0400Body kbwwog543.26 cmThomas Alan Other [employer] Other 06-08-2022 17:00-0400Body mass index (BMI) [Ratio] 36.91 kg/d7Vntouo Phillips Other [employer] Other 06-08-2022 17:00-0400Body dxslvnigdfy44.7 [degF]Mejia Phillips Other [employer] Other 06-08-2022 17:00-0400Body .4 kgThjael Smithley Other [employer] Other 06-08-2022 17:00-0400Diastolic blood xijiyvkw16 mm[Hg] Mejia Phillips Other [employer] Other 06-08-2022 17:00-0400Respiratory rate18 /minMejia Phillips Other [employer] Other 06-08-2022 17:00-1689OkQ3% (BldA) [Mass fraction]96 % Mejia Phillips Other [employer] Other 06-08-2022 17:00-0400Systolic blood cazutcwg270 mm[Hg] Mejia Phillips Other [facility] Other 01-11-2022 17:30-0500Body .26 cmThomsamantha Phillips Other [employer] Other 01-11-2022 17:30-0500Body mass index (BMI) [Ratio] 36.91 kg/z4Eeybmujael Phillips Other [employer] Other 01-11-2022 17:30-0500Body erjekvharrh76.1 [degF]Mejia Phillips Other [facility] Other 01-11-2022 17:30-0500Body pyedwd858.4 kgThjael Smithley Other [employer] Other 01-11-2022 17:30-0500Diastolic blood mhrrowxt14 mm[Hg] Mejia Phillips Other [employer] Other 01-11-2022 17:30-0500Respiratory rate18 /minMejia Smithley Other [employer] Other 01-11-2022 17:30-4919EpL2% (BldA) [Mass fraction]96 % Mejia Phillips Other [facility] Other 01-11-2022 17:30-0500Systolic blood cmnsgiuv602 mm[Hg] Mejia Alan Other [facility] Other Encounters Encounter DateEncounter TypeCare ProviderFacilityStart: 12-04-2024 End: 12-96-6852jcccspbhddLqgdoi R Phillips DO Work Phone: [phone]-[facility]ysmhlscm Health GastroStart: 12-04-2024 End: 62-95-9592Dskzkro encounter procedureBalbir Kuo APRN-[facility] Work Phone: Start: 11-22-2024 End: 92-46-5416acxbxeduzpSvuzda R ConleyFacility:[facility]: 15-01-1238Dsz-patient / Non-visitImad Alicja ESCUDERO-[facility] Work Phone: Start: 10-28-2024 End: 04-88-3018odwzjfanqyEkyvxj R Phillips DO Work Phone: [facility] Work Phone: Start: 10-28-2024 End: 44-42-6066Saknrjt encounter procedureMejia Newton MD-[facility] Work Phone: Start: 10-15-2024 End: 52-05-6634Msamlc outpatient visit 25 minutesNeville Richardson BURRER OPERATOR Work Phone: [facility] Urgent CareComment on above:Sinus congestion (Primary Dx); Acute cough; BronchitisStart: 10-15-2024 End: 10-32-8418iscteahdggUIHVYOA N AUSTINNot AvailableStart: 10-03-2024 End: 14-28-8597rohhgtopzkFZPRDWW BROWNFacility:[facility]art: 09-30-2024 End: 54-55-8428brwgqxibrgByclxp R Phillips DO Work Phone: [facility] Work Phone: Start: 09-30-2024 End: 96-94-9786Aibjrtn encounter procedureRichard Hickey -[facility] Work Phone: Start: 58-37-1872Ewo-patient / Non-visitOutside Provider-[facility] Work Phone: Start: 08-21-2024 End: 17-91-0607jpntvccechEWWUDXB BROWNFacility:[facility]: 07-09-2024 End: 62-39-8014mbbjogdbsqFuydbs R Phillips DO Work Phone: [facility] Work Phone: Start: 07-09-2024 End: 80-45-4785Kconogp encounter procedureThjael Phillips DO Work Phone: [facility] Work Phone: Start: 44-27-8940ednvcemgcoMCUIEJR BROWN Facility:[facility]: 06-19-2024 End: 80-09-0972Dfgcfkfja encounterMarlys Devine APRN.CNP Work Phone: PsychiatryStart: 05-24-2024 End: 98-10-8308Lqjgnhm encounter procedureThomas Phillips DO Work Phone: [facility] Work Phone: Start: 05-24-2024 End: 48-42-9878lfbdxcrirqUiizfu R Phillips DO Work Phone: [facility] Work Phone: Start: 05-21-2024 End: 37-63-1164pjstrywutcNhfcqz R Phillips DO Work Phone: [facility] Work Phone: Start: 05-21-2024 End: 48-37-7279Qhghyod encounter procedureThomas Phillips DO Work Phone: [facility] Work Phone: Start: 80-59-6605Lrj-patient / Non-visitThomas Phillips DO Work Phone: [facility] Work Phone: Start: 07-17-4840Zfo-patient / Non-visitThomas Phillips DO Work Phone: [facility] Work Phone: Start: 03-11-2024 End: 38-57-9617Kslzurlci to same day surgery centerThomas Phillips DO Work Phone: [facility]-Digestive Health Work Phone: Start: 03-11-2024 End: 72-98-0178egfabcdjbcHpjnvk R Phillips DO Work Phone: [facility] Work Phone: Start: 66-58-4382Gng-patient / Non-visitThomas Phillips DO Work Phone: [facility] Work Phone: Start: 01-19-2024 End: 76-22-7547Rmtszoivi to same day surgery centerThomas Phillips DO Work Phone: [facility]-Digestive Health Work Phone: Start: 01-19-2024 End: 83-52-0271vdnwzppatbYyumwp R ConleyFacility:[facility]: 09-19-2023 End: 59-68-3643orriydrogjTP Mejia Phillips Work Phone: [facility] Work Phone: Start: 09-19-2023 End: 63-13-7160Hlmsxnm encounter procedureDO Mejia Phillips Work Phone: [facility] Family [facility] [place] Work Phone: Start: 04-93-7826Yqx-patient / Non-visitDO Mejia Phillips Work Phone: [facility] [place] Work Phone: Start: 07-08-2023 End: 46-73-7558lxyqcgvcgkFC Mejia Phillips Work Phone: [facility] Work Phone: Start: 07-08-2023 End: 37-73-6329Gfpdkzt encounter procedureDO Mejia Phillips Work Phone: [facility]-Lab [place] Work Phone: Start: 05-24-2023 End: 51-57-7022sjgrsuzhfpKskpqcyevSamaritan Hospital Work Phone: Start: 05-24-2023 End: 24-56-8104Vyxxbqn encounter procedureFiroaklands Physician Group-[facility] [place] Work Phone: Start: 05-10-2023 End: 19-63-8152jogqijjqpiFvggpxghnOhio State [facility] Work Phone: Start: 05-10-2023 End: 67-08-5825Prdxdra encounter procedureFirpoplar [facility] [place] Work Phone: Start: 67-84-5196Tif-patient / Non-visitFirpoplar springs hospital [facility] Professional [employer] Work Phone: Start: 09-19-2022 End: 76-47-1486pgfebloihdJahv Asaad Other [facility] Other Start: 50-40-6823Zumkrdyzl encounterImad AsaadFPG GastroenterologyStart: 09-16-2022 End: 80-40-8608ictpvlbxlnQcchtb Phillips Other [employer] Other Start: 52-63-2314Jjlxtbpvd encounterThomas ConleyFPG Family Medicine [place]Start: 09-13-2022 End: 94-58-1461jgkcpvhzckByqmkb Phillips Other [facility] Other Start: 48-04-5926Xuyaylubh encounterThomas ConleyFPG Palliative CareStart: 09-12-2022 End: 64-70-3612Efsnfytck to same day surgery Iliana Phillips Work Phone: [facility]-Digestive Health Work Phone: Start: 09-12-2022 End: 13-21-1917poitelwqqwQN Thomas R Conley Work Phone: [facility] Work Phone: Start: 07-28-2022 End: 72-24-3425ziszwikikeAlumxh Alan Other [facility] [employer] Other Start: 72-36-3429Wperwo outpatient visit 25 minutes Mejia Rodriguez [facility] [place]Start: 06-27-2022 End: 44-15-0224uajsbqmvygEC Thomas R Conley Work Phone: [facility] Work Phone: Start: 06-27-2022 End: 53-91-7835Qdmbhjcfhz RecurringDO Mejia Phillips Work Phone: [facility] C[facility]-Physical Therapy [address]Start: 11-83-0735Apvflazjj encounterThomas ConleyFPG [facility] [place]kyStart: 06-09-2022 End: 55-84-3474pjqcqjbetcECFarhat Phillips Work Phone: [facility] Work Phone: Start: 06-09-2022 End: 68-51-4406Qyrrzvw encounter procedureDO Mejia Phillips Work Phone: [facility] C[facility]-XRay [facility] Work Phone: Start: 06-08-2022 End: 56-39-5643pzggjyveyiTtrc Asaad Other [employer] Other Start: 90-73-6611Nttabfxre encounterImad AsaadFPG Referral CoordinatorStart: 79-84-0259Gvmynpyync RecurringDO Mejia Phillips Work Phone: [facility]-Physical Therapy [address]Start: 06-02-2022 End: 41-79-5259kkapqwinklIbqspo Phillips Other [employer] Other Start: 99-09-8788Okxkrgffy encounterThomas ConleyFPG Family Medicine [place]kyStart: 06-01-2022 End: 12-96-7296iyaanmokdcVzxbzq Phillips Other [employer] Other Start: 36-01-6374Rwscur outpatient visit 15 minutes Mejia Rodriguez [facility] [place]Start: 05-17-2022 End: 25-06-1873blpexpmyhdNzfbnc Phillips Other [employer] Other Start: 36-72-9186Lwruwxkwu encounterThomas ConleyFPG Family Medicine [place]kyStart: 05-09-2022 End: 30-36-3106Tcagicokl department patient visitDO Mejia Phillips Work Phone: [facility]-Emergency Room Work Phone: Start: 04-04-2022 End: 58-44-2559wvlgmuoxxtUauimj Phillips Other no21GRAMS Other Start: 91-25-4731Sevopejpw encounterThjael PhillipsG Family Medicine [place]kyStart: 03-30-2022 End: 42-15-5014ekiebrrfywPkecct Phillips Other no21GRAMS Other Start: 56-73-3496Xlgmdp outpatient visit 25 minutes Mejia PhillipsBerna Family Medicine [place] hallyStart: 03-15-2022 End: 72-77-9061Euhuuyw encounter procedureDO Mejia Phillips Work Phone: [facility]-Sleep Lab Work Phone: Start: 03-15-2022 End: 79-96-2790gpygerilkzZA Mejia Phillips Work Phone: [facility] Work Phone: Start: 70-08-0444Rqomlj outpatient visit 15 minutes Lam [facility] CenterStart: 01-09-2022 End: 84-25-8272pakzuivcddAaahra Alan Other [employer] Other Start: 75-54-5502Fbugvabjo encounterThjael AlanENCOMPASS [facility] CenteryStart: 01-07-2022 End: 46-14-4013jihfsgugyqMO Mejia Phillips Work Phone: [facility] Work Phone: Start: 01-07-2022 End: 85-27-9127Saplacc encounter procedureDO Mejia Phillips Work Phone: [facility] CtrProvidence Tarzana Medical CenterStart: 12-22-2021 End: 50-48-0991llcecojtwfEykfbf Phillips Other no21GRAMS Other Start: 00-25-0225Ujfequbwp encounterThomas ConleyFPG Family Medicine [place] hallyStart: 10-20-2021 End: 41-32-0710Cgurveyfhw RecurringDO Mejia Phillips Work Phone: [facility]-Physical Therapy [place] Start: 09-27-2021 End: 62-13-7503nyhhugmppuYegiouhe Kear[place] Other [facility] Other Start: 08-19-3624Bzwscl follow up visit related to original Karlos BookerFPG [facility] OrthopedicsStart: 09-16-2021 End: 59-86-1783rjsaihdwozXtktfn Phillips Other [facility] Other Start: 82-72-2976Junpluxho encounterThomas ConleyFPG [facility] [place]Start: 09-15-2021 End: 87-83-7146Avciuokyx to same day surgery centerDO Mejia Phillips Work Phone: [facility]-Surgery Center Main CampusStart: 09-14-2021 End: 46-32-3458llqzzkmjkdIedmpe Olexa Other no21GRAMS Other Start: 87-31-2220Wixuitazv encounterThomas OlexaFPG [facility]icsStart: 09-14-2021 End: 86-44-7494Dxrxgst encounter procedureDO Mejia Phillips Work Phone: [facility]-Pre-Surgical Testing Start: 09-10-2021 End: 46-27-1621pzgyptfxeoXpsyjt Olexa Other no21GRAMS Other Start: 59-83-7239Wxisyqrmx encounterThomas OlexaFPG [facility]icsStart: 09-07-2021 End: 27-57-4912Rvwshsd encounter procedureDO Mejia Phillips Work Phone: [facility]-Pre-Surgical Testing Start: 09-06-2021 End: 39-69-7099gvnbxplvnuNmxbju Olexa Other [employer] Other Start: 53-32-3266Unhvuixgi for other preprocedural examinationThomas OlexaFPG [facility]icsStart: 19-66-1880Szyhyj outpatient new 45 minutesThomas OlexaFPG [facility]opedicsStart: 08-18-2021 End: 88-75-1049gcywqkkrqzIjkcgj Phillips Other no[employer] Other Start: 38-29-4168Wkyphj outpatient visit 15 minutes Mejia Rodriguez [facility] CenteryStart: 08-09-2021 End: 85-11-2767csmaiqtshcLxhxyk Phillips Other [employer] Other Start: 94-91-0560Zyolwauzi encounterThomas ConleyENCOMPASS [facility] Family [facility] EastyStart: 08-07-2021 End: 42-49-8226Thpvxes encounter procedureDO Mejia Phillips Work Phone: [facility]-MRI Main CampusStart: 07-14-2021 End: 29-67-7265ltkagwabtgOezuhb Phillips Other no21GRAMS Other Start: 44-90-4181Ewcapw outpatient visit 15 minutes Mejia Rodriguez [facility] CenteryStart: 05-03-2021 End: 31-81-7659axmgidgplmSzewsr Phillips Other no21GRAMS Other Start: 58-50-5235Sqijqmhrg encounterThomas ConleyFPG Family Medicine [place] hallyStart: 05-02-2021 End: 28-79-6740hwnchytkhiJivhhj Phillips Other no21GRAMS Other Start: 86-19-6308Aoqcimfhz encounterThomas Michael [facility] [place]Start: 03-07-2021 End: 25-43-0547snuccyensgLecwlj Conley Other no21GRAMS Other Start: 34-23-6755Ygysytpsm encounterThomas AlanFPG [facility] [place]Start: 03-02-2021 End: 68-36-4265gdeddccezqOhhv Fitimtiaz Other [facility]omo [employer] Other Start: 75-53-4838Fkvskpzda encounterDawn SusanAscension Good [facility] Care ClinicStart: 02-16-2021 End: 29-65-9107hgmiapxlivYflpce Phillips Other no21GRAMS Other Start: 87-84-2319Hpnuxv outpatient visit 25 minutes Mejia SmithjacG [facility] [place]Start: 06-17-2020 End: 94-21-9325pxyeyeglrbFD DOCTOR MISCFacility:R2Pqifa: 05-27-2020 End: 78-48-4727wguqwrcxrpBZBCWB ROSSFacility:H1 Procedures DateProcedureProcedure DetailPerforming ClinicianStart: 93-16-0294U-ray of both knees, two viewsThjael Phillips DO Work Phone: Start: 78-26-2476Zgqli X-ray of bilateral shoulders Mejia Smithley DO Work Phone: Start: 17-20-4982Obwtosnph colonoscopyThjael Smithley DO Work Phone: Start: 59-47-2282Wtlcfaxmc colonoscopyThjael Smithley DO Work Phone: Start: 89-90-4917Epxhruggu colonoscopyDO Mejia Alan Work Phone: Start: 03-18-0881Y-ray of lumbar spine, six views including bending viewsDO Mejia Phillips Work Phone: Start: 72-12-0826AY of abdomen and pelvis without contrastDO Mejia Phillips Work Phone: Start: 20-78-4166E-ray of right kneeDO Mejia Phillips Work Phone: Start: 94-64-8037Fdncxcpjqlj of kneeDO Mejia Phillips Work Phone: Start: 18-24-5040OXJ of left kneeDO Mejia Phillips Work Phone: Start: 28-78-9216Oqmem 1996 panel - Serum or Plasma Marlys Devine APRN.CNP Work Phone: Plan of Treatment DateCare ActivityDetailAuthorStart: 25-22-8571ZCB Vaccine (1 - 1-dose 75+ series)RSV Vaccine (1 - 1-dose 75+ series)[facility]: [facility]: 24-26-3789Z-ray of both knees, two views XR knee BI 2VSt. Anthony's Hospitaltart: 56-46-2812WG Knee - bilateral 2 ViewsSt. Anthony's Hospitaltart: 89-51-1345Oxophqhlb vaccinationInfluenza Vaccine (Season Ended)[facility]: 03-11-2024 [facility]: 97-39-3051BimutbkagSt. Anthony's Hospitaltart: 76-22-3820Cdfpl-19 Vaccine ( season)Covid-19 Vaccine ( season)[facility]: 21-43-7772YymodtzyfSt. Anthony's Hospitaltart: 68-25-4942Oygmmrcfbj RecurringRegistered RecurringUniversity Hospitals St. [facility] C[facility]-Physical Therapy [place]Start: 73-64-4219XaijefibmUniversity Hospitals St. [facility] Work Phone: Start: 91-80-2438Kbssfgtpzfc of kneeOR Knee Arthroscopy (Left)[facility]: 81-63-9940ItadzflttUniversity Hospitals St. [facility] Work Phone: Start: 09-15-2021 End: 94-05-2415Eyraeadhf to same day surgery centerDeparted Surgical Day Care [facility]-Surgery Center Main CampusStart: 09-14-2021 End: 10-36-2749Yvqbabv encounter procedureDeparted ClinicalGuernsey Memorial Hospital-Pre-Surgical TestingStart: 69-02-0567Nhcwz panelLipid Screening [facility]ustart: 21-10-2541Dvgnjhpy ScreeningDiabetes ScreeningSumma Health Akron Campustart: 25-96-8610Omwwroyhdwiz Vaccine: 50+ (1 of 1 - PCV)Pneumococcal Vaccine: 50+ (1 of 1 - PCV)[facility]: 81-32-3094Navageek Vaccine (1 of 2)Shingrix Vaccine (1 of 2)[facility]: 10-57-2738Uimhismz specific antigen measurementProstate Cancer Screening DiscussionSumma Health Akron Campustart: 95-06-6119Kkmunneza for malignant neoplasm of colonSumma Health Akron Campustart: 37-40-2861Ctmpl microalbumin profileDTaP,Tdap,Td Vaccine (1 - Tdap)[facility]: 08-75-4427Ojqeqivlhf ScreeningDepression ScreeningC[facility] Start: 07-26-1258Duekjuaqo C screeningHepatitis C ScreeningCleveland Clinic Marymount [facility] Start: 46-18-9104JIM screeningHIV ScreeningCleveland Clinic Marymount HospitalComprehensive metabolic 2000 panel - Serum or PlasmaLakehealth Tripoint Medical CenterMR Shoulder - left WO contrastLakehealth Tripoint Medical CenterPatient Education [facility] Work Phone: Patient referralUniversity Hospitals St. [facility] Work Phone: Radionuclide gastric emptying studyLakehealth Tripoint Medical CenterXR Shoulder - bilateral ViewsTennova Healthcare Immunizations Immunization DateImmunizationNotesCare HuqwmpnfBajlybin38-27-2516PBRGO-57 Vaccine Pfizer - Documentation Purposes OnlyThomas Phillips Other [facility]04-21-2021COVID-19 Vaccine Pfizer - Documentation Purposes OnlyThjael Phillips Other [facility] Payers DatePayer CategoryPayerPolicy [id number] [place] [employer] [id number] Cross Blue Shield [id number]-nayStms Pay [id number] Social History DateTypeDetailFacilityUnknown if ever smokedNossm health care Fragegg Other Start: 01-17-2023 End: 70-97-5820Kcx [facility]igned At [facility]: 09-15-2021 End: 72-44-3492Qyabajg smoking status NHISNever smoked tobacco (finding) [facility]: 03-71-0226Ste Assigned At [facility]: 03-11-2024 End: 71-30-4362KeqDzsi (finding)[facility]: 51-03-4031Ouulzmbtz beverage intakeCurrent non-drinker of alcohol (finding) [facility]: 01-17-2023 End: 71-90-9863Lugebuj of Social functionTrinity Health System [facility] Depression Screening Mfkavtpbdu4Mzslyovog ClinicStart: 97-32-9614Mpahrc identityIdentifies as male gender (finding)[facility] smoking status NHISTobacco smoking consumption unknownParkland Health CenterStart: 11-40-5774Jug assigned at Not on [facility] Goals DatePatient GoalDesired Activity/State Clinical Notes 02-16-2021 to 10-15-2024 Note Date & LnpzAdfpCoqxoqgj47-66-0145 History of Present illness Narrative* Neville Richardson, BURRER OPERATOR - 10/15/2024 4:05 PM EDT Images from the original note were not included. [address], [address] [facility], [address] P: [phone] F: [phone] HPI Historian of HPI: patient Sahra Tse is a 64 y.o. male who presents today to the Urgent Care with the following complaintsand denials which have been present for 2 week(s). Pt states that he has been fighting a cold or allergies for about 2wks. Pt was taking some ATB but cannot remember the name. Pt denies any N/D/V at this time. Pt denies missing work. Pt denies testing. C/O Denies Symptom Comments [x] [] Runny Nose Yellow mucus [] [x] Difficulty Swallowing [] [x] Sore Throat [x] [] Cough Slight cough [] [x] Ear Pain [] [x] Fever [] [x] Chills [x] [] Nasal/chest Congestion Chest congestion, yellow mucus [] [x] Myalgia [] [x] Sinus Pain [] [x] Sinus Pressure Additional Comments: pt has not taken any OTC medications ROS A complete system ROS was performed and negative aside from the pertinent positives noted in the HPI and PE. Visit Vitals BP 122/78 (BP Location: Left arm, Patient Position: Sitting, BP Cuff Size: Large adult) Pulse 82 Temp 97.8 F (Temporal) Resp 20 Wt 275 lb SpO2 99% BMI 40.61 kg/m BSA 2.47 m IH Testing: PHYSICAL EXAM Physical Exam Vitals reviewed. Constitutional: General: He is not in acute distress. Appearance: Normal appearance. HENT: Head: Normocephalic and atraumatic. Right Ear: Hearing, tympanic membrane, ear canal and external ear normal. Left Ear: Hearing, tympanic membrane, ear canal and external ear normal. Nose: Congestion present. Right Turbinates: Enlarged and swollen. Left Turbinates: Enlarged and swollen. Right Sinus: Maxillary sinus tenderness present. Left Sinus: Maxillary sinus tenderness present. Mouth/Throat: Mouth: Mucous membranes are moist. Pharynx: Oropharynx is clear. Eyes: Extraocular Movements: Extraocular movements intact. Conjunctiva/sclera: Conjunctivae normal. Pupils: Pupils are equal, round, and reactive to light. Cardiovascular: Rate and Rhythm: Normal rate and regular rhythm. Pulses: Normal pulses. Heart sounds: Normal heart sounds. Pulmonary: Effort: Pulmonary effort is normal. No respiratory distress. Breath sounds: Decreased air movement present. Decreased breath sounds present. No wheezing, rhonchi or rales. Comments: LS clear, diminished bilateral bases on exam Musculoskeletal: General: Normal range of motion. Cervical back: Normal range of motion and neck supple. Skin: General: Skin is warm and dry. Findings: No rash. Neurological: General: No focal deficit present. Mental Status: He is alert and oriented to person, place, and time. Psychiatric: Mood and Affect: Mood normal. TREATMENT PLAN 1. Sinus congestion (Primary) New medication as directed. Acetaminophen or Ibuprofen for reduction of fever and pain. Increase fluids. Good handwashing. Discussed warning signs of worsening infection and when to report to ER. Don in 24 hours. Call office if symptoms have not started to improve within the next 72 hours. Patient verbalized understanding of instructions. - methylPREDNISolone (Medrol Dospak) 4 MG tablets; Follow schedule on package instructions Dispense: 21 tablet; Refill: 0 2. Acute cough Will treat with ATBx given duration of sx. Medication, implications, and side effects discussed. Report any side effects to PCP immediately. Take with food. Change or sterilize toothbrush 24 hours after starting ATB. OTC meds symptomatically and push fluids. The patient will let us know if sx worsen, change, or fail to improve in the next 5-7 days. Signs/symptoms and red flags of when to seek emergent medical attention discussed. Patient expressed an understanding. - methylPREDNISolone (Medrol Dospak) 4 MG tablets; Follow schedule on package instructions Dispense: 21 tablet; Refill: 0 3. Bronchitis -Take medication as prescribed below to completion -cough and deep breathe -May use Tylenol/Ibuprofen for pain/fever -May use OTC medication such as cough syrups especially at night time for relief, pseudoephedrine for nasal congestion, and/or Cecelia Pot or saline rinses. -Follow up with in 1 week if no improvement or go to the ED for worsening of symptoms such as SOB or CP - azithromycin (Zithromax) 250 MG tablet; Take 1 tablet (250 mg) by mouth Daily Take 2 tabs on day 1 and 1 tab on days 2-5 then stop Dispense: 6 tablet; Refill: 0 documented in this encounterParkland Health [id number] NoteHNO ID: [id number] Author: PEDRO SOLARES MD Service: ? Author Type: Physician Type: Progress Notes Filed: 10/03/2024 15:13 Note Text: FOLLOW UP - PSYCHIATRIC PROGRESS NOTE Visit Type:In person Reason for Visit: Outpatient follow-up and safety monitoring of previously prescribed psychiatric medication, psychotherapy or other treatment CC: I feel better HPI: Pt is a 64 yo M with medical history of KEI on CPAP, HTN, HLD, GERD, who presented to clinic to reestablish care after being lost to follow up in resident clinic. He has trialed Gabapentin (drowsy), Effexor (2005), Wellbutrin, Prozac, Celexa, Lexapro, Zoloft, Pristiq, Paxil, Propanolol (2010), Abilify ([id number]), [place] (drooling, 2009), Focalin (nausea) (obtained via chart review as pt has limited recollection of trials). He is currently taking: Cymbalta 120 mg every day, Wellbutrin XL 300 mg every day, and Lamictal 400 mg every day. Reports feeling improved relative to last appointment and attributes this to the Cymbalta. Notes improvement in depressive symptoms. No reported SI/HI. Notes some sadness surrounding the passing of his mother a week ago. Notes some anxiety, though finds this is exacerbated only in a work setting. Discussed option of initiating Buspar thought pt does not wish to add another medication at this time. Pt has not been following with a therapist. Risks and benefits of the medication, including any black box warnings, were discussed with the patient. Interval Progress: Same PATIENT DATA: Generalized Anxiety Disorder Scale (PEPE-7) 09/19/2023 11/12/2023 08/17/2024 PEPE - 7 SCORES Score 14 19 19 (0-4) minimal anxiety, (5-9) mild anxiety, (10-14) moderate anxiety, (15-21) severe anxiety Patient Health Questionnaire (PHQ-9) 09/19/2023 11/12/2023 08/17/2024 PHQ-9 Score 11 15 21 (0-4) minimal depression, (5-9) mild depression, (10-14) moderate depression, (15-19) moderately severe depression, (20-27) severe depression PROMIS Global Health 01/17/2023 09/19/2023 08/17/2024 PROMIS Global Health - (T-Scores - the mean of general population = 50. Five points is a clinically meaningful difference.) Physical T-Score 29.6 34.9 Mental T-Score 33.8 25.1 21.2 No past medical history on file. No past surgical history on file. Current Outpatient Medications Medication Sig Dispense Refill DULoxetine DR (CYMBALTA) 60 mg capsule Take 2 capsules by mouth once daily. 180 capsule 0 lamoTRIgine (LAMICTAL) 200 mg tablet TAKE 2 TABLETS ONCE DAILY 180 tablet 3 buPROPion XL (WELLBUTRIN XL) 300 mg 24 hr tablet take 1 tablet daily 90 tablet 3 cholecalciferol (VITAMIN D3) 1,000 unit tab tablet Take 1 tablet by mouth once daily. Required to schedule an appointment with [facility] for further refills. 90 tablet 1 LISINOPRIL-HYDROCHLOROTHIAZIDE 20 MG-12.5 MG TAB take one daily 0 0 SIMVASTATIN 80 MG TAB take one tab daily 0 0 diltiazem hcl(CARDIZEM CD 240 MG 24 HR CAP) take one tab 0 0 PANTOPRAZOLE 40 MG TAB, DELAYED RELEASE take one tab daily 0 0 No current facility-administered medications for this visit. ROS: GENERAL: Negative RESPIRATORY: Negative CARDIOVASCULAR: Negative GI: Negative NEURO: Negative All other systems negative. PFSH: No interval updates. VITAL SIGNS: 10/03/24 1424 BP: 147/78 BP Site: Right Arm BP Position: Sitting BP Cuff Size: Large Adult Pulse: 101 Resp: 16 SpO2: 95% Weight: 106.6 kg (235 lb 0.2 oz) Height: 175.3 cm (5' 9 ) MENTAL STATUS EXAM: Appearance: Casually dressed Behavior: Behaves appropriately during the encounter Social relatedness: Euthymic Speech/Language: The patient demonstrates appropriate tone, prosody, pili, phonetics, and syntax Mood: ok Affect: Full and appropriate to topic Orientation: Person, Place, Time and Situation Associations: Intact and linear Hallucinations: None Delusions: None Suicidal Ideation: No suicidal ideation, intent or plan. Homicidal Ideation: No homicidal ideation, intent or plan. Insight: Fair Judgment: Fair Concentration: Good Abstraction: intact Fund of Knowledge: appropriate to age and education level Memory: Fair Language: Fluent Grenadian DATA REVIEWED: Electronic medical record DIAGNOSIS: Major depressive disorder, moderate, with seasonal pattern Rule-out Persistent Depressive Disorder Generalized Anxiety Disorder ADHD, per chart review Cluster B Personality Traits GAF: 60-51 Moderate symptoms or moderate difficulty in social, occupational or school functioning. TREATMENT PLAN: 1. Continue Cymbalta to 120 mg every day. Can consider transitioning to alternative antidepressant, such as Trintellix. Though I do anticipate pt would benefit most from therapy as many symptoms are more related to social stressors and are quite chronic per chart review. Will plan to continue Lamictal 400 mg every day and Wellbutrin XL 300 mg every day at this time. Can also (more content not included)...[facility]08-25-2025 Evaluation note* Diagnosis Onset Date Resolution Status Admit Date Bicipital tendinitis, left shoulder acuteAugust 2024 4:29pmRotator cuff syndrome of left shoulderacuteAugust 2024 4:29pmRotator cuff syndrome of right shoulderacuteAugust 2024 4:29pmPrimary osteoarthritis of both kneesacuteSeptember 2024 11:45am Rotator cuff syndrome of left shoulderacuteSeptember 2024 11:45am [facility] Work Phone: 1(621) 345-974008-25-2025 Evaluation note* Diagnosis Onset Date Resolution Status Admit Date Bicipital tendinitis, left shoulder acuteAugust 2024 4:29pmRotator cuff syndrome of left shoulderacuteAugust 2024 4:29pmRotator cuff syndrome of right shoulderacuteAugust 2024 4:29pmPrimary osteoarthritis of both kneesacuteSeptember 2024 11:45am Rotator cuff syndrome of left shoulderacuteSeptember 2024 11:45amAbdominal painacuteOctober 2024 2:56pmBloatingacuteOctober 2024 2:56pm ConstipationacuteOctober 2024 2:56pmGERD (gastroesophageal reflux disease) acuteOctober 2024 2:56pm [facility] Work Phone: 1(589) 543-173007-16-2025 NoteHNO ID: [id number] Author: PEDRO SOLARES MD Service: ? Author Type: Physician Type: Progress Notes Filed: 08/21/2024 11:53 Note Text: FOLLOW UP - PSYCHIATRIC PROGRESS NOTE Visit Type:In person Reason for Visit: Outpatient follow-up and safety monitoring of previously prescribed psychiatric medication, psychotherapy or other treatment CC: My mood is all over the place HPI: Pt is a 64 yo M with medical history of KEI on CPAP, HTN, HLD, GERD, who presented to clinic to reestablish care after being lost to follow up in resident clinic. He has trialed Gabapentin (drowsy), Effexor (2005), Wellbutrin, Prozac, Celexa, Lexapro, Zoloft, Pristiq, Paxil, Propanolol (2010), Abilify ([id number]), [place] (drooling, 2009), Focalin (nausea) (obtained via chart review as pt has limited recollection of trials). He is currently taking: Cymbalta 90 mg every day, Wellbutrin XL 300 mg every day, and Lamictal 400 mg every day. Pt brought up examples of symptoms he has been experiencing from browsing TikTok. Pt notes increase in emotional outbursts both at work and at home followed by crying episodes with mixed emotions of feeling overwhelmed and remorseful. He experiences over thinking thing and worrying about future events. He notes feeling forgetful and has trouble concentrating. He notes associated nausea, tension, irritability. He does experience intermittent thoughts of wanting to always triggered by arguments. Denies current SI/HI. Denies intent. Denies having a current plan. Denies current access to guns as he sold them many years ago to limit access. Discusses safety planning and reports having a colleague at work that he can talk to. Pt notes that based on his reading, he believes that Cymbalta has been beneficial for him and would like to optimize this dose. Pt has not been following with a therapist. He expresses intent to do so. Risks and benefits of the medication, including any black box warnings, were discussed with the patient. Interval Progress: Same PATIENT DATA: Generalized Anxiety Disorder Scale (PEPE-7) 09/19/2023 11/12/2023 08/17/2024 PEPE - 7 SCORES Score 14 19 19 (0-4) minimal anxiety, (5-9) mild anxiety, (10-14) moderate anxiety, (15-21) severe anxiety Patient Health Questionnaire (PHQ-9) 09/19/2023 11/12/2023 08/17/2024 PHQ-9 Score 11 15 21 (0-4) minimal depression, (5-9) mild depression, (10-14) moderate depression, (15-19) moderately severe depression, (20-27) severe depression PROMIS Global Health 01/17/2023 09/19/2023 08/17/2024 PROMIS Global Health - (T-Scores - the mean of general population = 50. Five points is a clinically meaningful difference.) Physical T-Score 29.6 34.9 Mental T-Score 33.8 25.1 21.2 No past medical history on file. No past surgical history on file. Current Outpatient Medications Medication Sig Dispense Refill DULoxetine (CYMBALTA) 60 mg capsule Take 1 capsule by mouth once daily. 90 capsule 0 DULoxetine (CYMBALTA) 30 mg capsule Take 1 capsule by mouth once daily. 90 capsule 0 lamoTRIgine (LAMICTAL) 200 mg tablet TAKE 2 TABLETS ONCE DAILY 180 tablet 3 buPROPion XL (WELLBUTRIN XL) 300 mg 24 hr tablet take 1 tablet daily 90 tablet 3 cholecalciferol (VITAMIN D3) 1,000 unit tab tablet Take 1 tablet by mouth once daily. Required to schedule an appointment with [facility] for further refills. 90 tablet 1 LISINOPRIL-HYDROCHLOROTHIAZIDE 20 MG-12.5 MG TAB take one daily 0 0 PANTOPRAZOLE 40 MG TAB, DELAYED RELEASE take one tab daily 0 0 SIMVASTATIN 80 MG TAB take one tab daily 0 0 diltiazem hcl(CARDIZEM CD 240 MG 24 HR CAP) take one tab 0 0 No current facility-administered medications for this visit. ROS: GENERAL: Negative RESPIRATORY: Negative CARDIOVASCULAR: Negative GI: Negative NEURO: Negative All other systems negative. PFSH: No interval updates. VITAL SIGNS: There were no vitals filed for this visit. MENTAL STATUS EXAM: Appearance: Casually dressed Behavior: Behaves appropriately during the encounter Social relatedness: Euthymic Speech/Language: The patient demonstrates appropriate tone, prosody, pili, phonetics, and syntax Mood: anxious Affect: Full and appropriate to topic Orientation: Person, Place, Time and Situation Associations: Intact and linear Hallucinations: None Delusions: None Suicidal Ideation: No suicidal ideation, intent or plan. Homicidal Ideation: No homicidal ideation, intent or plan. Insight: Fair Judgment: Fair Concentration: Good Abstraction: intact Fund of Knowledge: appropriate to age and education level Memory: Fair Language: Fluent Grenadian DATA REVIEWED: Electronic medical record DIAGNOSIS: Major depressive disorder, moderate, with seasonal pattern Rule-out Persistent Depressive Disorder Generalized Anxiety Disorder ADHD, per chart review Cluster B Personality Traits GAF: 60-51 Moderate symptoms or moderate difficulty in s (more content not included)...[facility]06-03-2025 Evaluation note* Diagnosis Onset Date Resolution Status Admit Date Bicipital tendinitis, left shoulder acuteJune 2024 7:31amRotator cuff syndrome of left shoulderacuteJune 2024 7:31amRotator cuff syndrome of right shoulderacuteJune 2024 7:31am Bicipital tendinitis, left shoulderacuteAugust 2024 4:29pmRotator cuff syndrome of left shoulderacuteAugust 2024 4:29pmRotator cuff syndrome of right shoulderacuteAugust 2024 4:29pm [facility] Work Phone: 1(283) 228-413305-28-2025 NoteHNO ID: [id number] Author: PEDRO SOLARES MD Service: ? Author Type: Physician Type: Progress Notes Filed: 07/03/2024 09:02 Note Text: The patient did not show up for this appointment.[facility] 06-25-2024 NoteHNO ID: [id number] Author: LUCINDA QUILES MD Service: ? Author Type: Physician Type: Progress Notes Filed: 06/25/2024 15:12 Note Text: This provider called the patient to confirm that he had his requested Duloxetine. Per chart review, the patient had a 90 day refill ordered on 06/11. The patient did not answer so this provider left a voicemail with the office phone number to call back if there was any confusion with his recent order. Lucinda Quiles MD.[facility]05-14-2025 Telephone encounter Note * Telephone Encounter - Marlys Devine APRN.CNP - 06/19/2024 7:41 PM EDT Meet me line page - Attempted to contact patient but was unable to reach him. Per , he is asking for a 90 day supply of Cymbalta sent to [facility]. Per [facility], Cymbalta scripts up to date. Forwarding to provider [facility] Work Phone: [phone]5-1320 Miscellaneous Notes* Telephone Encounter - Marlys Devine APRN.CNP - 06/19/2024 7:41 PM EDT Meet me line page - Attempted to contact patient but was unable to reach him. Per , he is asking for a 90 day supply of Cymbalta sent to [facility]. Per [facility], Cymbalta scripts up to date. Forwarding to provider documented in [facility] encounterC[facility] Evaluation note* Diagnosis Onset Date Resolution Status Admit Date Essential (primary) hypertension acuteApril 2024 4:05pmHyperlipidemia, mixedacuteApril 2024 4:05pm Major depression, recurrentacuteApril 2024 4:05pmType 2 diabetes mellitus with hyperglycemiaacuteApril 2024 4:05pmVitamin D deficiencyacuteApril 2024 4:05pmChronic fatiguenoneactiveApril 2024 4:05pmAbdominal bloatingnoneactiveApril 2024 4:05pmBMI 36.0-36.9,adultnoneactiveApril 2024 4:05pmDecreased libidononeactiveApril 2024 4:05pmShoulder pain, bilateralnoneactiveApril 2024 4:05pm [facility] Work Phone: 1(184) 572-469304-15-2025 Evaluation note* Diagnosis Onset Date Resolution Status Admit Date Essential (primary) hypertension acuteApril 2024 4:05pmHyperlipidemia, mixedacuteApril 2024 4:05pm Major depression, recurrentacuteApril 2024 4:05pmType 2 diabetes mellitus with hyperglycemiaacuteApril 2024 4:05pmVitamin D deficiencyacuteApril 2024 4:05pmChronic fatiguenoneactiveApril 2024 4:05pmAbdominal bloatingnoneactiveApril 2024 4:05pmBMI 36.0-36.9,adultnoneactiveApril 2024 4:05pmDecreased libidononeactiveApril 2024 4:05pmShoulder pain, bilateralnoneactiveApril 2024 4:05pmBicipital tendinitis, left shoulder acuteJune 2024 7:31amRotator cuff syndrome of left shoulderacuteJune 2024 7:31amRotator cuff syndrome of right shoulderacuteJune 2024 7:31am [facility] Work Phone: 1(155) 300-666002-03-2025 [place] [address] Gastroenterology H&P Signed Patient: Sahra Tse MR#: [id number] : 1960 Acct:[id number] Age/Sex: 63 / M Adm Date: 5 Loc: Room: Type: [facility] Attending Dr: Valery Helm MD Copies to: MD Mejia Dominguez DO~ Date of Service: 03/11/2024 HISTORY & PHYSICAL: Patient's history with special attention to the cardiovascular, pulmonary systems and the current problem was reviewed with the patient immediately prior to the procedure. Present medications and doses reviewed in the EMR. Allergies and pertinent laboratory tests were also re viewedat this time in the EMR. The physical examination, as below, was then performed. Indication, assessment and HPI: 63-year-old man here for screening colonoscopy Family history of GI malignancy? No PHYSICAL EXAMINATION General appearance: NAD Skin: No jaundice Head: NC/AT Eyes: Anicteric Neck: Supple Lungs: Normal respiratory effort, no use of accessory muscles Abdomen: nondistended Neuro: Ox3. REVIEW OF SYSTEMS Constitutional: Denies malaise, fevers Cardiovascular: Denies chest pain, palpitations Respiratory: Denies shortness of breath, wheezing Gastrointestinal: As per HPI Genitourinary: Denies dysuria, polyuria Musculoskeletal: Denies joint swelling, joint stiffness Neurological: Denies confusion, numbness, tingling Endocrine: Denies fatigue Written informed consent obtained from the patient. Risks (including but not limited to perforation, infection, bloating, bleeding, need for emergent surgeryand loss of life), benefits and alternatives explained and questions answered. The patient verbalized understanding. Based on history patient is an appropriate candidate for the procedure. Valery Helm M.D. Documented By: Valery Helm MD 03/11/241131 Signed By: 03/11/24 1132 [facility]02-03-2025 [place] [address] Colonoscopy Procedure Report Signed Patient: Sahra Tse MR#: [id number] : 1960 Acct:[id number] Age/Sex: 63 / M Adm Date: 5 Loc: Room: Type: [facility] Attending Dr: Valery Helm MD Copies to: MD Mejia Dominguez DO~ Colonoscopy Date/Provider 03/11/2024 Valery Helm MD Colonoscopy Findings: Procedure: Colonoscopy with polypectomy Indication: 63-year-old man here for screening colonoscopy Pre-operative diagnosis: Colon cancer screening Post-operative diagnosis: A colonic polyp, internal hemorrhoids. Sedation: propofol per anesthesia dept O2 oximetry, hemodynamic monitoring was performed pre, during, and post procedure. Patient was identified, H&P completed, patient was given full explanation of the procedure as well as associatedrisks and written consent wasobtained prior to procedure. Patient expressed complete understanding of the procedure as well as alternatives to the procedure and to anesthesia and agreed to proceed with the procedure as indicated. Patient was immediately reassessed prior to IV sedation. Under IV sedation, patient was placed in the left lateral decubitus position. Digital rectal exam was performed and normal. Colonoscope was inserted and passed proximally to the cecum, which was identified by the ileocecal valve, appendiceal orifice and cecal floor. Colonoscope was slowly withdrawnwith the findings as below. Stowell bowel prep score was good. Findings: Cecum: Normal. Ascending colon: A 1 cm polyp removed using cold snare Hepatic flexure: Normal. Transverse colon: Normal. Splenic flexure: Normal. Descending colon: Normal. Sigmoid colon: Normal. Rectum: Normal. Retroflexed views: Rectum did show internal hemorrhoids. Biopsy taken: No Complications: None EBL: None Recommendations: -Repeat colonoscopy in 3 years -Follow up pathology Following a period of recovery, patient was seen and given full explanation of the procedure. Patient tolerated the procedure well and will be discharged in satisfactory, stable condition. Valery Helm M.D. Documented By: Valery Helm MD 03/11/24 1133 Signed By: 03/11/[address] [place], [place] [id number] NoteHNO ID: [id number] Author: PEDRO SOLARES MD Service: ? Author Type: Physician Type: Progress Notes Filed: 11/15/2023 11:18 Note Text: The patient did not show up for this appointment. At last appointment, discussed that patient has had difficulty with connecting via [employer] in the past. However, he still opted to pursue virtual visits given the length of his commute. Provider explained that [facility] could be used as a back up option, but only if pt at least attempted to connect via [employer]. Pt successfully completed check-in as of 11/11 at 7:40 PM, but did not log-in to [employer] at all during the day of the visit. Last login in noted at 11/12/2023 at 7:30:51 PM. Thus [facility] was not initiated. Visit will count as no-show and pt will need to reschedule.[facility]08-07-2023 [facility] Evaluation note* Encounter Date Diagnosis Assessment Notes Treatment Notes Treatment Clinical Notes Jul, Type 2 diabetes teetee itus with other circulatory complications (ICD- 10 - E11.59) After discussion, we will increase Trulicity to 1.5 mg weekly, he will call if he has any side effects with this dose Jul,rimary osteoarthritis of both knees (ICD-10 - M17.0)Continue with meloxicam at this time, he will call if the edema worsens or if he has any other sideeffects Jul,Hypertension (ICD-10 - I10)Continue current medication Jul,Hyperlipidemia, mixed (ICD-10 - E78.2)Continue statin therapy Modumetal Other 04-26-2023 Evaluation note* Encounter Date Diagnosis Assessment Notes Treatment Notes Treatment Clinical Notes May, Other chronic pain (ICD-10 - G89 .29) Currently he is having significant back pain, bilateral knee pain and left de Quervain's tenosynovitis. We will treat with NSAIDs and physical therapy but he feels he is unable to complete his job duties at this time. A few weeks of rest and PT likely will significantly improve his symptoms. We will keep him off of work starting 06/07/22 and RTW 07/05/22. I advised him to have his employer send us their paperwork May,rimary osteoarthritis of both knees (ICD-10 - M17.0)We discussed the treatment of knee osteoarthritis in detail today. We will start an as needed NSAID, I advised him he can continue Tylenol but do not take any dyfy-awl-oxoutxx NSAIDs. We also discussed cortisone injections but he prefers to avoid this at this time. He does not want to go back to orthopedics at this time May,Low back pain, unspecified (ICD-10 - M54.50)We will start physical therapy and I also gave him the lumbar conditioning program from [facility] May,e Quervain's disease (tenosynovitis) (ICD-10 - M65.4)I recommended ice to the area and rest, he will also consider bracing if not seeing improvement [facility] Other 02-22-2023 Evaluation note* Encounter Date Diagnosis Assessment Notes Treatment Notes Treatment Clinical Notes Mar, Type 2 diabetes teetee itus with other circulatory complications (ICD- 10 - E11.59) Given his possible metformin side effects and his desire to make a change, we will switch from Janumet to Trulicity. We discussed the common side effects of the medication and he will call if he has any side effects or concerns Mar,Screening for colon cancer (ICD-10 - Z12.11)Referral sent Mar,cute URI (ICD-10 - J06.9)This appears to be a resolving viral upper respiratory infection, I recommended that he push fluids, rest and he can use the Tessalon Perles with the Mucinex DM. Call the office if not seeing continued improvement and resolution Mar,Hypertension (ICD-10 - I10)Continue current medications [facility] Other 02-07-2023 Evaluation note* Encounter Date Diagnosis Assessment Notes Treatment Notes Treatment Clinical Notes Mar, Obstructive sleep apnea (ICD-10 - G47.33) He reports he is using and benefiting from treatment. We are due for a download, and I will try to get that. He may also be eligible for a new machine. Order sent to [facility]. If he does get a new machinewe will see him back for 31 to 90 days, but otherwise we will see him back in a year. He does have some residual fatigue but I suspect it may be medication related, especially if the download comes back okay Mar,Hypertension (ICD-10 - I10)Blood pressure control frequently improves with control of underlying sleep apnea Mar,MI 36.0-36.9,adult (ICD-10 - Z68.36)I encouraged him to continue efforts of progressive weight loss [facility] Other 12-04-2022 Evaluation note* Encounter Date Diagnosis Assessment Notes Treatment Notes Treatment Clinical Notes Jan, Pain in right knee (ICD-10 - M25 .561) Jan,ther chronic pain (ICD-10 - G89.29) Jan,bnormal x-ray of knee (ICD-10 - R93.6) [facility] Other 11-16-2022 Evaluation note* Encounter Date Diagnosis Assessment Notes Treatment Notes Treatment Clinical Notes Dec, Other chronic pain (ICD-10 - G89 .29) Dec,ain in right knee (ICD-10 - M25.561) [facility] Other 08-22-2022 Evaluation note* Encounter Date Diagnosis Assessment Notes Treatment Notes Treatment Clinical Notes Sep, Other tear of medial meniscus of left knee as current injury, subsequent encounter (ICD-10 - S83.242D) Patient instructed on gentle motion exercise as well as quadriceps and hamstring strengthening exericse. Discussed use of ice and heat for pain relief as well as elevation of the leg to prevent swelling. Sep,ther specified postprocedural states (ICD-10 - Z98.890) [facility] Other 08-09-2022 Evaluation note* Encounter Date Diagnosis Assessment Notes Treatment Notes Treatment Clinical Notes Sep, Other specified postprocedural s tates (ICD-10 - Z98.890) [facility] Other 08-01-2022 Evaluation note* Encounter Date Diagnosis Assessment Notes Treatment Notes Treatment Clinical Notes Sep, Acute medial meniscu s tear of left knee, initial encounter (ICD-10 - S83.242A) MRI reviewed with patient as medial meniscal tear with arthritic changes medial femoral condyle. Rodolfo has bone contusion that should resolve over time with rest. We will plan on arthroscopy and menisectemy. Patient advised the arthritic changes will not be addressed with surgery, and he may continue to have some element of pain due to his degenerative changes. We have discussed continued non-operative treatments including gentle exercise, use of medicationsand activity modification. Patient states that they would like to proceed with surgery at this time. We discussed the surgery process in detail including nothing by mouth 8 hrs prior to sugery, thorough washing of leg pior to coming to surgery. We discussed the multiple potential risks of anesthesia including respiratory, cardiac and patient positioning issues. We discussed the multiple risks of surgery particularly wound infection, deep venous thrombosis(DVT), persistent swelling, pain and stiffness after surgery, as well as worsening of pre-existing arthritic symptoms.Patient has agreed to understanding of these risks and would like to proceed. Sep,re-op exam (ICD-10 - Z01.818) [facility] Other 07-13-2022 Evaluation note* Encounter Date Diagnosis Assessment Notes Treatment Notes Treatment Clinical Notes Aug, Type 2 diabetes teetee itus with other circulatory complications (ICD- 10 - E11.59) He will complete his A1c and PSA with his likely upcoming preoperative evaluation Aug,creening for prostate cancer (ICD-10 - Z12.5) Aug,enign essential HTN (ICD-10 - I10) [facility] Other 06-08-2022 Evaluation note* Encounter Date Diagnosis Assessment Notes Treatment Notes Treatment Clinical Notes Jul, Acute pain of left knee (ICD-10 - M25.562) His x-ray showed minimal arthritis but a rather large effusion. There was no obvious injury or trauma to explain this effusion. There is no erythema and he has not had any fever so we would not suspect infection or gout. Given his continued symptoms without improvement, an MRI is indicated. An MRI is indicated to evaluate for meniscal injury, ligamentous injury, etc. We will call with results. Heis also requesting FMLA in case he is unable to work, or if he has an appointment. Once the paperwork arrives it will be completed Jul,Knee effusion, left (ICD-10 - M25.462) [facility] Other 01-11-2022 Evaluation note* Encounter Date Diagnosis Assessment Notes Treatment Notes Treatment Clinical Notes Feb, Type 2 diabetes teetee itus with other circulatory complications (ICD- 10 - E11.59) Continue efforts with diet and exercise Feb,Erectile dysfunction, unspecified erectile dysfunction type (ICD-10 - N52.9) He would like to try Cialis, I advised him that he may have the same side effect as he had with Viagra, he still wants to try the medication Feb,Vitamin D deficiency (ICD-10 - E55.9) Feb,enign essential HTN (ICD-10 - I10) Feb,Exertional chest pain (ICD-10 - R07.9) Given his risk factors, I advised that we proceed with stress testing, he would like to proceed Feb,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 Work Phone: Evaluation note* Diagnosis Onset Date Resolution Status Otitis media noneactive [facility] Work Phone: Evaluation note* Diagnosis Onset Date Resolution Status Otitis media noneactiveEssential (primary) hypertensionacuteHyperlipidemia, mixedacuteType 2 diabetes mellitus with hyperglycemiaacuteAcute middle ear effusionnoneactive [facility] Work Phone: Evaluation note* Diagnosis Onset Date Resolution Status Essential (primary) hypertension acuteHyperlipidemia, mixedacuteType 2 diabetes mellitus with hyperglycemiaacute FatiguenoneactiveDecreased libidononeactive [facility] Work Phone: Evaluation note* Diagnosis Onset Date Resolution Status Admit Date Essential (primary) hypertension acuteApril 2024 4:05pmHyperlipidemia, mixedacuteApril 2024 4:05pm Major depression, recurrentacuteApril 2024 4:05pmType 2 diabetes mellitus with hyperglycemiaacuteApril 2024 4:05pmVitamin D deficiencyacuteApril 2024 4:05pmChronic fatiguenoneactiveApril 2024 4:05pmAbdominal bloatingnoneactiveApril 2024 4:05pmBMI 36.0-36.9,adultnoneactiveApril 2024 4:05pmDecreased libidononeactiveApril 2024 4:05pmShoulder pain, bilateralnoneactiveApril 2024 4:05pm [facility] Work Phone: Evaluation note* Diagnosis Sinus congestion- Primary Other diseases of nasal cavity and sinuses Acute cough Bronchitis Bronchitis, not specified as acute or chronic documented in this encounter [facility] HealthcareHistory and physical note Author Valery Helm [facility] September 12, 2022 9:00amNote Date/TimeAugust 2022 9:01[place] [address] Gastroenterology H&P Signed Patient: Sahra Tse MR#: [id number] : 1960 Acct:[id number] Age/Sex: 62 / M Adm Date: 3 Loc: Room: Type: [facility] Attending Dr: Valery Helm MD Copies to: MD Mejia Dominguez, ~ Date of Service: 09/12/2022 HISTORY & PHYSICAL: Patient's history with special attention to the cardiovascular, pulmonary systems and the current problem was reviewed with the patient immediately prior to the procedure. Present medications and doses reviewed in the EMR. Allergies and pertinent laboratory tests were also re viewedat this time in the EMR. The physical examination, as below, was then performed. Indication, assessment and HPI: 62-year-old man here for screening colonoscopy Family history of GI malignancy? No PHYSICAL EXAMINATION Mouth and Pharynx : Moist mucus membranes, normal dentition Cardiac: Regular rate, regular rhythm Pulmonary: Clear to auscultation bilaterally, no wheezing Neurological: Alert and oriented x3, no focal deficits noted Abdomen: Abdomen soft, non-tender REVIEW OF SYSTEMS Constitutional: Denies malaise, fevers Cardiovascular: Denies chest pain, palpitations Respiratory: Denies shortness of breath, wheezing Gastrointestinal: Per HPI Genitourinary: Denies dysuria, polyuria Musculoskeletal: Denies joint swelling, joint stiffness Neurological: Denies numbness, tingling Integumentary: Denies rashes, skin lesions Endocrine: Denies fatigue, weight loss Written informed consent obtained from the patient. Risks (including but not limited to perforation, infection, bloating, bleeding, need for emergent surgeryand loss of life), benefits and alternatives explained and questions answered. The patient verbalized understanding. Based on history patient is an appropriate candidate for the procedure. Valery Helm M.D. Documented By: Valery Helm MD 09/12/22899 Signed By: <Electronically signed by Valery Helm MD> 09/12/22899 [facility] Work Phone: History and physical note Author Valery Helm [facility] CenterNote Date/TimeFebruary 2024 12:50pm [place] [address] Gastroenterology H&P Signed Patient: Sahra Tse MR#: [id number] : 1960 Acct:[id number] Age/Sex: 63 / M Adm Date: Loc: Room: Type: [facility] Attending Dr: Valery Helm MD Copies to: MD Mejia Dominguez, DO~ Date of Service: 03/11/2024 HISTORY & PHYSICAL: Patient's history with special attention to the cardiovascular, pulmonary systems and the current problem was reviewed with the patient immediately prior to the procedure. Present medications and doses reviewed in the EMR. Allergies and pertinent laboratory tests were also re viewedat this time in the EMR. The physical examination, as below, was then performed. Indication, assessment and HPI: 63-year-old man here for screening colonoscopy Family history of GI malignancy? No PHYSICAL EXAMINATION General appearance: NAD Skin: No jaundice Head: NC/AT Eyes: Anicteric Neck: Supple Lungs: Normal respiratory effort, no use of accessory muscles Abdomen: nondistended Neuro: Ox3. REVIEW OF SYSTEMS Constitutional: Denies malaise, fevers Cardiovascular: Denies chest pain, palpitations Respiratory: Denies shortness of breath, wheezing Gastrointestinal: As per HPI Genitourinary: Denies dysuria, polyuria Musculoskeletal: Denies joint swelling, joint stiffness Neurological: Denies confusion, numbness, tingling Endocrine: Denies fatigue Written informed consent obtained from the patient. Risks (including but not limited to perforation, infection, bloating, bleeding, need for emergent surgeryand loss of life), benefits and alternatives explained and questions answered. The patient verbalized understanding. Based on history patient is an appropriate candidate for the procedure. Valery Helm M.D. Documented By: Valery Helm MD 03/11/24 1132 Signed By: <Electronically signed by Valery Helm MD> 03/11/24 1132 [facility] Work Phone: [facility] general Narrative - Reported* Type Description Date Medical History hypertension Medical HistoryhyperlipidemiaMedical Historymajor depression - follows with [facility] Medical Historygeneralized anxiety disorder with history of panic attacks in the pastMedical Historyallergic rhinitisMedical Historyreflex esophagitis/GERD Medical Historyvitamin D deficiencyMedical Historyexogenous obesityMedical Historysleep apnea, pt using BiPAP machineMedical HistoryhypogonadismMedical HistoryhyperprolactinemiaMedical HistorydiabetesMedical HistoryOSA on CPAP Surgical Historytonsillectomy+ adenoidectomySurgical HistoryUvula and septum repairSurgical HistoryEGD, uvual removed [facility] Other [place] general Narrative - Reported* Type Description Date Medical History hypertension Medical HistoryhyperlipidemiaMedical Historymajor depression - follows with [facility] Medical Historygeneralized anxiety disorder with history of panic attacks in the pastMedical Historyallergic rhinitisMedical Historyreflex esophagitis/GERD Medical Historyvitamin D deficiencyMedical Historyexogenous obesityMedical Historysleep apnea, pt using BiPAP machineMedical HistoryhypogonadismMedical HistoryhyperprolactinemiaMedical HistorydiabetesMedical HistoryOSA on CPAP Surgical Historytonsillectomy+ adenoidectomySurgical HistoryUvula and septum repairSurgical HistoryEGD, uvual removedHospitalization Historysee above [facility] Other [place] general Narrative - Reported* Type Description Date Medical History hypertension Medical HistoryhyperlipidemiaMedical Historymajor depression - follows with [facility] Medical Historygeneralized anxiety disorder with history of panic attacks in the pastMedical Historyallergic rhinitisMedical Historyreflex esophagitis/GERD Medical Historyvitamin D deficiencyMedical Historyexogenous obesityMedical Historysleep apnea, pt using BiPAP machineMedical HistoryhypogonadismMedical HistoryhyperprolactinemiaMedical HistorydiabetesMedical HistoryOSA on CPAP Surgical Historytonsillectomy+ adenoidectomySurgical HistoryUvula and septum repairSurgical HistoryEGD, uvual removedSurgical Historyleft knee scope with [id number] Historysee above [facility] Other Hospital Discharge instructions Additional Instructions DISCHARGE INSTRUCTIONS FOR COLONOSCOPY WHAT TO EXPECT: - You may feel full, gassy or cramping after your procedure. In some cases, this may be from a few hours to a day. Walking may help relieve the discomfort. - If you have polyp(s) removed you may note some minor bloody discharge after your first bowel movements. - You should begin to recover from anesthesia within 1 hour of the procedure, however may feel groggy for the next 24 hours. DO's AND DON'Ts: - Call your doctor right away if you have a hard abdomen, severe pain, are passing lots of bright red blood or clots. - Call your doctor if you develop any rashes, hives or difficulty breathing. - Let your doctor know if you have not had a bowel movement by 3 days after your procedure. - If you take 81 mg aspirin for your heart it is safe to resume this medication. - If you take other blood thinner medications your doctor will instruct you when these can safely be resumed. - Do NOT drive for 24 hours. - Do NOT operate machinery such as power tools, lawn mowers, snow blowers, sewing machines, etc. for 24 hours. - Avoid alcoholic beverages and drugs for allergies, nerves, or sleep. - Do NOT stay alone. Do NOT leave your child unattended. - Do NOT make important personal or business decisions or sign any legal documents. - Eat solid foods and drink liquids in smaller amounts than usual until normal appetite returns. If you should experience an upset stomach, liquids high in sugar content (soda, Isaak-Aid, non-acid juices) are recommended. - You can resume normal activities tomorrow. FOLLOW UP & RECOMMENDATIONS: -Notify the doctor if you have any problems. -Repeat colonoscopy next available due to inadequate prep -Follow up with PCP. -Office number [phone]. [facility] Work Phone: Hospital Discharge instructionsAdditional Instructions DISCHARGE INSTRUCTIONS FOR UPPER ENDOSCOPY WHAT TO EXPECT: - You may feel full, gassy or cramping after your procedure. In some cases, this may be from a few hours to a day. Walking may help relieve the discomfort. - Your throat may feel sore today from the scope that the doctor passed through your throat to visualize your stomach. Take a throat lozenge or suck on ice to ease the discomfort. - You may notice some streaks of blood in your sputum if the doctor has taken a biopsy. - You should begin to recover from anesthesia within 1 hour of the procedure, however may feel groggy for the next 24 hours. DO's AND DON'Ts: - Call your doctor right away if you have a hard abdomen, severe pain, vomiting or if you cough up large amounts of blood. - Call your doctor if you develop any rashes, hives or difficulty breathing. - If you take 81 mg aspirin for your heart it is safe to resume this medication. - If you take other blood thinner medications your doctor will instruct you when these can safely be resumed. - Do NOT drive for 24 hours. - Do NOT operate machinery such as power tools, [employer] mowers, [employer]wers, sewing machines, etc. for 24 hours. - Avoid alcoholic beverages and drugs for allergies, nerves, or sleep. - Do NOT stay alone. Do NOT leave your child unattended. - Do NOT make important personal or business decisions or sign any legal documents. - Eat solid foods and drink liquids in smaller amounts than usual until normal appetite returns. If you should experience an upset stomach, liquids high in sugar content (soda, Isaak-Aid, non-acid juices) are recommended. - Do NOT smoke. - Do take it easy today. You need not stay in bed, but avoid strenuous activities such as jogging or working out. FOLLOW UP & RECOMMENDATIONS: -Notify the doctor if you have any problems. - Continue omeprazole 40 mg daily -Office number [phone]. [facility] Work Phone: Reason for referral (narrative)* Reason DM education - A1c 6 .3% Diagnosis 1 Type 2 diabetes teetee itus with other circulatory complications (E11.59) Referral Organization [facility] Referring Provider First Name Mejia Referring Provider Last Name Alan Referring Provider Specialty Family Prac jimmy Referred Organization [facility] Referred Address [address] [place], [place],[address] Referred Provider Specialty Diabetes Edu cation Referral Priority Routine General Notes Vira Carpenter 05:09:15 PM > ORDERS NEED DR. CHAPA AND Vira Pineda 02/16/2021 05:17:08 PM > ORDERS HAVE BEEN SIGNED AND FAXED TO [facility] Other Reason for referral (narrative)No reason for referral information availableCommunity [facility] Work Phone: Summary Purpose Family History Relationship Condition Age at Onset Recorded Date/T david Not Specified Past medical history not known due to adoption Unknown Relationship Condition Age at Onset Recorded Date/T david Not Specified Past medical history not known due to adoption Unknown fatherDeceasedUnknown Advance Directives Advance Directive Response Recorded Date/ Time Advance Directives No October 11:38am Advance Directive Response Recorded Date/ Time Advance Directives No October 10:38am Reason for Referral Reason * Waiting for appt screening colonoscopy Diagnosis 1 Screening for colon cancer (Z12.11) Referral Organization [facility] [place] Referring Provider First Name Mejia Referring Provider Last Name Alan Referring Provider Specialty Family Prac jimmy Referred Organization [facility] Gastroenterolo gy Referred Provider Franko aDsilva Referred Address [address] ,[place], [place],[address] Referred Provider Specialty Gastroentero logy Referral Priority Routine General Notes Maria De Jesus Lopez 08:53:22 AM >referral received and sent p2p successful per log Reason * Waiting for appt left knee medial meniscus tear - MRI [facility] Diagnosis 1 Medial meniscus tear (S83.249A) Referral Organization [facility] [place] Referring Provider First Name Mejia Referring Provider Last Name Alan Referring Provider Specialty Family Prac jimmy Referred Organization [facility] Referred Provider Da Skinner II Referred Address [address],[place],[address] Referred Provider Specialty Orthopedic S urgery Referral Priority Routine General Notes Maria De Jesus Lopez 06/2021 11:35:34 AM >referral received and sent p2p sent successful per log Chief Complaint and Reason for Visit Chief Complaint M25.562 M25.462 Knee Pain Knee Pain Knee Pain POST OP left knee scope Chief Complaint POST OP left knee sc ope G89.29 m25.561 Chief Complaint G89.29 m25.561 Sleep apnea annual follow up Chief Complaint G 47.33/Sleep apnea annual follow up urinating blood Chief Complaint G 47.33/Sleep apnea annual follow up urinating blood Back Pain G89.29 M45.50 Chief Complaint G89.29 M45.50 C Back Pain Chief Complaint C Back Pain Screening Chief Complaint Amb Documentation possible sinus infectionReason for VisitOtitis media Chief Complaint Amb Documentation possible sinus infection Follow up [id number] for VisitOtitis media Chief Complaint possible sinus infec tion Follow up a1c E11.65 E55.9 Z12.5Reason for VisitOtitis media Essential (primary) hypertension Hyperlipidemia, mixed Type 2 diabetes mellitus with hyperglycemia Acute middle ear effusion Chief Complaint E11.65 E55.9 Z12.5 Amb Documentation 4 month follow up [id number] for VisitEssential (primary) hypertension Hyperlipidemia, mixed Type 2 diabetes mellitus with hyperglycemia Fatigue Decreased libido Chief Complaint Admit Date Screening January 19, 2024 7:31am Screening January 19, 2024 8:34am Screening March 11, 2024 9 :53am Screening March 11, 2024 1 1:32am Amb Documentation March 11, 2024 1 2:45pm Chief Complaint Admit Date Screening March 11, 2024 9 :53am Screening March 11, 2024 1 1:32am Amb Documentation March 11, 2024 1 2:45pm shoulder pain/stomach issues May 21, 2024 4:05pm Reason for Visit Admit Date Essential (primary) hypertension May 072024 4:05pm Hyperlipidemia, mixed May 21, 2024 4 :05pm Major depression, recurrent May 21, 2024 4:05pm Type 2 diabetes mellitus with hyperglyce elda May 21, 2024 4:05pm Vitamin D deficiency May 21, 2024 4: 05pm Chronic fatigue May 21, 2024 4:0 5pm Abdominal bloating May 21, 2024 4:0 5pm BMI 36.0-36.9,adult May 21, 2024 4:0 5pm Decreased libido May 21, 2024 4:0 5pm Shoulder pain, bilateral May 21 4:05pm Chief Complaint Admit Date Screening March 11, 2024 9 :53am Screening March 11, 2024 1 1:32am Amb Documentation March 11, 2024 1 2:45pm shoulder pain/stomach issues May 21, 2024 4:05pm M25.511 M25.512 G89.29 E11.65 R53.82 E55 .9 May 24, 2024 9:57am Chief Complaint Admit Date shoulder pain/stomach issues May 21, 2024 4:05pm M25.511 M25.512 G89.29 E11.65 R53.82 E55 .9 May 24, 2024 9:57am CONSULT DR ALAN MAURICE SHOULDER PAIN WX F C July 09, 2024 7:31am Reason for Visit Admit Date Essential (primary) hypertension May 072024 4:05pm Hyperlipidemia, mixed May 21, 2024 4 :05pm Major depression, recurrent May 21, 2024 4:05pm Type 2 diabetes mellitus with hyperglyce elda May 21, 2024 4:05pm Vitamin D deficiency May 21, 2024 4: 05pm Chronic fatigue May 21, 2024 4:0 5pm Abdominal bloating May 21, 2024 4:0 5pm BMI 36.0-36.9,adult May 21, 2024 4:0 5pm Decreased libido May 21, 2024 4:0 5pm Shoulder pain, bilateral May 21 4:05pm Bicipital tendinitis, left shoulder July 09, 2024 7:31am Rotator cuff syndrome of left shoulder J [facility] 2024 7:31am Rotator cuff syndrome of right shoulder July 09, 2024 7:31am Chief Complaint Admit Date CONSULT DR ALAN MAURICE SHOULDER PAIN WX F C July 09, 2024 7:31am 8 WEEKS September 30, 2024 4: 29pm Reason for Visit Admit Date Bicipital tendinitis, left shoulder July 09, 2024 7:31am Rotator cuff syndrome of left shoulder J [facility] 2024 7:31am Rotator cuff syndrome of right shoulder July 09, 2024 7:31am Bicipital tendinitis, left shoulder Augu 2024 4:29pm Rotator cuff syndrome of left shoulder A ugust 2024 4:29pm Rotator cuff syndrome of right shoulder September 30, 2024 4:29pm Chief Complaint Admit Date WEEKS September 30, 2024 4: 29pm OP SP JOASFAT KNEE PAIN October 28, 2024 11:45am M25.561 - Pain in right knee October 082024 11:47am Reason for Visit Admit Date Bicipital tendinitis, left shoulder 2024 4:29pm Rotator cuff syndrome of left shoulder A ugust 2024 4:29pm Rotator cuff syndrome of right shoulder September 30, 2024 4:29pm Primary osteoarthritis of both knees Sep 2024 11:45am Rotator cuff syndrome of left shoulder S eptember 2024 11:45am Chief Complaint Admit Date September 30, 2024 4: 29pm OP SP JOSAFAT KNEE PAIN October 28, 2024 11:45am M25.561 - Pain in right knee October 082024 11:47am nausea/vomiting November 22, 2024 8 :17am Chief Complaint Admit Date September 30, 2024 4: 29pm OP SP JOSAFAT KNEE PAIN October 28, 2024 11:45am M25.561 - Pain in right knee October 082024 11:47am nausea/vomiting November 22, 2024 8 :17am Follow up to EGD/N&V December 04, 2024 2:56pm Reason for Visit Admit Date Bicipital tendinitis, left shoulder 2024 4:29pm Rotator cuff syndrome of left shoulder A ugust 2024 4:29pm Rotator cuff syndrome of right shoulder September 30, 2024 4:29pm Primary osteoarthritis of both knees [facility] 2024 11:45am Rotator cuff syndrome of left shoulder S eptember 2024 11:45am Abdominal pain December 04, 2024 2 :56pm Bloating December 04, 2024 2 :56pm Constipation December 04, 2024 2 :56pm GERD (gastroesophageal reflux disease) O ctober 2024 2:56pm Additional Source Comments (unrecognized sect ion and content) No Status Records FoundNo Status Records FoundNo Status Records FoundNo Status Records FoundNo Status Records FoundNo Status Records Found INFORMATION SOURCE (unrecogn ized section and content) DATE CREATED AUTHOR 07/29/2018 [facility] DATE CREATED AUTHOR AUTHOR'S ORGANIZ ATION 12/16/2019 [facility] DATE CREATED AUTHOR AUTHOR'S ORGANIZ ATION 07/03/2020 [facility] DATE CREATED AUTHOR AUTHOR'S ORGANIZ ATION 10/18/2024 [facility] DATE CREATED AUTHOR AUTHOR'S ORGANIZ ATION 11/12/2024 [facility] DATE CREATED AUTHOR AUTHOR'S ORGANIZ ATION 11/25/2024 [facility] REASON FOR VISIT (unrecogniz ed section and content) GENERAL CHECK UP/VIAGRA QUES TIONS - A1c in office, HAD A CHEST PAIN EPISODE OVER A COURSE OF A COUPLE 3 DAYS, BILATERAL LEG PAINS, PINS AND NEEDLES, BILATERAL FOOT PAIN TOODSME ReferralLAB RESULTSSTRESS TEST RESULTSHEALTH CONCERNSFR ER FOLLOW UP, WENT TO [facility] 07/01 FOR LLE PAIN. DX: LLE PAIN AND KNEE PAIN, HE IS HAVING KNEE PAINMRI RESULTS6 month Follow upLeft Knee Painortho referral updatepost op scriptRefillsRecheck Left KneeRight KneeNo InformationNo InformationMED CONCERNS - a1c officework noteFRMC ERpain in back, knees, and thumb.injectionsMAIL PPWNo Information4 month Follow up hgba1c in officereferralresultsPosting sheet Care Teams (unrecognized sec tion and content) Team Status: Active Member Role Status Dates Mejia Phillips DO Primary Care Provider Active Team Status: Active Member Role Status Dates Mejia Phillips DO Primary Care Provider Active Start: August 21, 2024 Outside ProviderAttending ProviderActiveStart: August 21, 2024 Team Status: Inactive Member Role Status Dates Mejia Phillips DO Primary Care Provider Active Start: September 30, 2024 End: September 30, 2024Richard Hickey DOAttending ProviderActiveStart: September 30, 2024 End: September 30, 2024 Team Status: Inactive Member Role Status Dates Mejia Phillips DO Primary Care Provider Active Start: October 28, 2024 End: October 28, 2024Thjael Newton MDAttending ProviderActiveStart: October 28, 2024 End: October 28, 2024 Team Status: Active Member Role Status Dates Mejia Newton MD Attending Provider Active Star t: October 28, 2024 AMY Agarwaledwige Care ProviderActiveStart: October 28, 2024 Team Status: Inactive Member Role Status Dates Mejia Phillips DO Primary Care Provider Active Start: May 10, 2023 End: May 09je Javon Talamantes Anne Mariebrant ProviderActiveStart: May 10, 2023 End: May 10, 2023 Team Status: Inactive Member Role Status Dates Mejia Phillips DO Primary Care Provid er, Attending Provider Active Start: May 24, 2023 End: May 24, 2023 Team Status: Inactive Member Role Status Dates Mejia Phillips DO Primary Care Provid er, Attending Provider Active Start: July 08, 2023 End: July 08, 2023 Team Status: Active Member Role Status Dates Mejia Phillips DO Primary Care Provider Active Start: March 23, 2023 Dariana Burt CMAAttending ProviderActiveStart: March 23, 2023 Team Status: Inactive Member Role Status Dates Mejia Phillips DO Primary Care Provider Active Michael Benjaminending ProviderActive Team Status: Active Member Role Status Dates Mejia Phillips DO Primary Care Provider Active Mejia Newton MDAttending ProviderActive Team Status: Inactive Member Role Status Dates Mejia Phillips DO Primary Care Provider, Attending Provider Active Team Status: Inactive Member Role Status Dates Mejia Phillips DO Primary Care Provider Active Cecilia Patterson ProviderActive Team Status: Inactive Member Role Status Dates Mejia Phillips DO Primary Care Provider Active Farooq Macias ProviderActive Team Status: Active Member Role Status Dates Mejia Phillips DO Primary Care Provider, Attending Provider Active Team Status: Inactive Member Role Status Dates Mejia Phillips DO Primary Care Provider Active Valery Helm MDAttending ProviderActive Team Status: Active Member Role Status Dates Mejia Phillips DO Primary Care Provider Active Start: July 25, 2023 Dariana Burt CMAAttending ProviderActiveStart: July 25, 2023 Team Status: Inactive Member Role Status Dates Mejia Phillips DO Primary Care Provid er, Attending Provider Active Start: September 19, 2023 End: September 19, 2023 Team Status: Inactive Member Role Status Dates Mejia Phillips DO Primary Care Provider Active Start: January 19, 2024 End: January 19, 2024Imad Asarowena , MDAttending ProviderActiveStart: January 19, 2024 End: January 19, 2024 Team Status: Active Member Role Status Dates Mejia Phillips DO Primary Care Provider Active Start: January 19, 2024 Imad Asaad , MDAttending Provider, Other ProviderActiveStart: January 19, 2024 Team Status: Inactive Member Role Status Dates Mejia Phillips DO Primary Care Provider Active Start: March 11, 2024 End: March 11, 2024Imad Asaad , MDAttending ProviderActiveStart: March 11, 2024 End: March 11, 2024 Team Status: Active Member Role Status Dates Mejia Phillips DO Primary Care Provider Active Start: March 11, 2024 Imad Asaad , MDAttending Provider, Other ProviderActiveStart: March 11, 2024 Team Status: Active Member Role Status Dates Mejia Phillips DO Primary Care Provider Active Start: March 11, 2024 Khushbu Jimenez CMAAttending ProviderActiveStart: March 11, 2024 Team Status: Inactive Member Role Status Dates Mejia Phillips DO Primary Care Provid er, Attending Provider Active Start: May 21, 2024 End: May 21, 2024 Team Status: Inactive Member Role Status Dates Mejia Phillips DO Primary Care Provid er, Attending Provider Active Start: May 24, 2024 End: May 24, 2024Team MemberRelationshipSpecialtyStart DateEnd Date Mejia Phillips DO [address] [facility]; [place] [address] PCP - [facility]06/07/23 Team Status: Inactive Member Role Status Dates Mejia Phillips DO Primary Care Provider Active Start: July 09, 2024 End: July 09, 2024Richard Hickey DOAttchaz ProviderActiveStart: July 09, 2024 End: July 09, 2024 Team Status: Inactive Member Role Status Dates Mejia Newton MD Attending Provider Active Star t: October 28, 2024 End: October 28, 2024ThClay Baird Care ProviderActiveStart: October 28, 2024 End: October 28, 2024 Team Status: Active Member Role/Relationship Status Dates Mejia Phillips DO Primary Care Provider Active Team Status: Inactive Member Role/Relationship Status Dates Mejia Phillips DO Primary Care Provider Active Start: September 30, 2024 End: September 30, 2024Richard Hickey DOAttchaz ProviderActiveStart: September 30, 2024 End: September 30, 2024 Team Status: Inactive Member Role/Relationship Status Dates Mejia Phillips DO Primary Care Provider Active Start: October 28, 2024 End: October 28Cecilia Valenzuela ProviderActiveStart: October 28, 2024 End: October 28, 2024 Team Status: Inactive Member Role/Relationship Status Dates Mejia Newton MD Attending Provider Active Star t: October 28, 2024 End: October 28AMY Bairdridamian Care ProviderActiveStart: October 28, 2024 End: October 28, 2024 Team Status: Active Member Role/Relationship Status Dates Mejia Phillips DO Primary Care Provider Active Start: November 22, 2024 Valery Helm MDAttending ProviderActiveStart: November 22, 2024 Valery Helm MDOther ProviderActiveStart: November 22, 2024 Team Status: Inactive Member Role/Relationship Status Dates Mejia Phillips DO Primary Care Provider Active Start: December 04, 2024 End: December 04, 2024Madeline Longoria ProviderActiveStart: December 04, 2024 End: December 04, 2024 Goals (unrecognized section and content) Goals may be documented in a n alternate section Source Comments (unrecognize d section and content) In the event this informatio n is protected by the Federal Confidentiality of Alcohol and Drug Abuse Patient Records regulations: The Federal rules restrict any use of the information to criminally investigate or prosecute any alcohol or drug abuse patient.[facility] FOR RECORDS PERTAINING TO PATIENTS WHO ARE OR HAVE BEEN ENROLLED IN A CHEMICAL DEPENDENCY/SUBSTANCEABUSE PROGRAM, SOME INFORMATION MAY BE OMITTED. This clinical summary was aggregated from multiple sources. Caution should be exercised in using it in the provision of clinical care. This summary normalizes information from multiple sources, and as a consequence, information in this document may materially change the coding, format and clinical context of patient data. In addition, data may be omitted in some cases. CLINICAL DECISIONS SHOULD BE BASED ON THE PRIMARY CLINICAL RECORDS. [facility] [employer] [facility]. provides no warranty or guarantee of the accuracy or completeness of information in this document.
[2024-12-27 09:03] VITALS: BP 120/82
[2024-12-27 09:44] LABS: Glucose Urine UA NEGATIVE (NEGATIVE)
[2024-12-27 09:53] LABS: Cast Seen? SEEN #/LPF (NONE SEEN); Crystals Seen? None Seen #/HPF (None Seen); Urine Culture Indicated NO
== END 2024-12-27 09:37 | disposition home or self-care (01) ==
PROVIDERS: Emergency Provider Emergency Medicine; PCP Family Medicine
DX: M47.816 Spondylosis without myelopathy or radiculopathy, lumbar region (principal); M54.50 Low back pain, unspecified
CPT/HCPCS: 72100; 81001; 96372; 99284; J1885; J2360